=== PATIENT | female | born 1980 ===

== ENCOUNTER 2019-03-27 00:44 | Inpatient (IN) | payer MEDICAID, OTHER ==
[2019-03-27] MEDS ORDERED: MAGNESIUM SULFATE 4 GM/100 ML BAG IV ONE (01:54)
[2019-03-27] MEDS ORDERED: MAGNESIUM SULFATE 40GM/1000ML 40 GM/1,000 ML BAG IV SCH (02:00)
[2019-03-27 02:11] LABS: Basophils # (Auto) 0.1 K/mm3 (0.0-0.1); Basophils % (Auto) 0.8 % (0.0-1.8); Eosinophils # (Auto) 0.1 K/mm3 (0.0-0.4); Eosinophils % (Auto) 0.8 % (0.0-4.3); Hematocrit 29.5 % (30.3-42.9); Hemoglobin 9.6 gm/dl (10.1-14.3); Lymphocytes # (Auto) 1.4 K/mm3 (1.2-5.4); Lymphocytes % (Auto) 21.4 % (13.4-35.0); Mean Corpuscular HGB Conc 32 % (30-34); Mean Corpuscular Volume 75 fl (79-97); Monocytes # (Auto) 0.5 K/mm3 (0.0-0.8); Monocytes % (Auto) 7.3 % (0.0-7.3); Platelet Count 208 K/mm3 (140-440); Red Blood Count 3.94 M/mm3 (3.65-5.03); Red Cell Distribution Width 15.2 % (13.2-15.2)
[2019-03-27 02:14] LABS: Bilirubin,Urine NEG (Negative); Blood,Urine NEG (Negative); Color,Urine Straw (Yellow); Hyaline Casts,Urine 1 /LPF; Mucus,Urine FEW /HPF; Protein,Urine <15 mg/dL mg/dL (Negative); Urobilinogen,Urine < 2.0 mg/dL (<2.0)
[2019-03-27 02:22] LABS: Amphetamine Screen,Urine PRESUMPTIVE NEGATIVE; Benzodiazepines Screen,Urine PRESUMPTIVE NEGATIVE; Cannabinoid Screen,Urine PRESUMPTIVE NEGATIVE; Cocaine Screen,Urine PRESUMPTIVE NEGATIVE; Methadone Screen,Urine PRESUMPTIVE NEGATIVE; Opiate Screen,Urine PRESUMPTIVE NEGATIVE
[2019-03-27] MEDS: LACTATED RINGERS 1,000 ML IV SCH ×2 (02:30→16:03)
[2019-03-27] MEDS: AMPICILLIN/NS 2 GM/100 ML 2 GM/100 ML BAG IV SCH ×4 (02:30→20:06)
[2019-03-27] MEDS: BETAMET ACET/BETAMET NA PH 6 MG/ML INJ 5 ML MDV IM SCH (02:31)
[2019-03-27] MEDS: BUTORPHANOL 2 MG/1 ML INJ IV PRN (02:56)
--- NOTE | 2019-03-27 03:00 | Ultrasound Report ---
Limited obstetrical ultrasound INDICATION: Early 1 week , leaking fluid COMPARISON: None recent TECHNIQUE: Transabdominal FINDINGS: Limited evaluation shows an intrauterine . Large fetus is noted in a cephalic posi tion. Dating was not performed. Placenta is not well evaluated but is free of the internal cervical o s. cardiac activity was documented with heart rate of 161 bpm. Only a small amount of amniotic fluid is seen. TONY is decreased and only 2.1 cm. There appears to be a loop of the umbilical cord around the neck. IMPRESSION: 1. Oligohydramnios 2. Evidence of nuchal cord Signer Name: Berto Childers MD Signed: 03/27/2019 2:55 AM Workstation Name: [id number]
[2019-03-27] MEDS: ERYTHROMYCIN LACTOBIONATE 250 MG in SODIUM CHLORIDE 0.9% 100 ML IV SCH ×3 (05:58→18:10)
--- NOTE | 2019-03-27 08:50 | Consultation ---
History of Present Illness Consult date: 03/27/19 Requesting physician: VINNY SPARROW History of present illness: HPI 39 y/o SF MARGE 05/28/19 Now EGW at 31 1/7 weeks Presented with PPROM 11:30pm Denies fever chills abd pain - Pos - Occ contrax ------- Recent Diag with GDM - On Metformin 500 q day dinner BS Log fastings 104-122 2 HPP's most < 120's Received Steroids first dose Mg turned off after ? chest pain Lungs CTA Pulse ox -96 leg - right mild tenderness to palpation , neg homans , no warmth Left NT no edema neg homans Abd soft NT no RUQ Pain EFM 150 - had late decel after one contrax - down to 120 - Pos Accels , Mod variability US - Vtx, TONY 2.1cm , nuchal cord OB history 98 T M 8# 01 T M 9# 11 T F 8# No complications No med No surg No STD ? Polyp No C/D/D Denies complication except for GDM Past History - Obstetrical History : 4 Medications and Allergies Allergies Allergy/AdvReac Type Severity Reaction Status Date / Time No Known Allergies Allergy Unverified 07/27/15 21:54 Active Meds: Active Medications Acetaminophen (Tylenol) 650 mg PO Q4H PRN PRN Reason: Pain MILD(1-3)/Fever >100.5/MALIN Betamethasone Acet/Betameth SodPhos (Celestone Soluspan) 12 mg IM Q24H [facility]ER Stop: 03/28/19 02:01 Last Admin: 03/27/19 02:31 Dose: 12 mg Documented by: Butorphanol Tartrate (Stadol) 2 mg IV Q2H PRN PRN Reason: Labor Pain Last Admin: 03/27/19 02:56 Dose: 2 mg Documented by: Docusate Sodium (Colace) 100 mg PO Q12H PRN PRN Reason: Constipation Lactated Ringer's (Lactated Ringers) 1,000 mls @ 125 mls/hr IV DIRECT [facility]ER Ampicillin Sodium (Ampicillin/Ns 2 Gm/100 Ml) 2 gm in 100 mls @ 100 mls/hr IV Q6H [facility]ER; Protocol Stop: 03/28/19 20:59 Last Admin: 03/27/19 08:14 Dose: 100 mls/hr Documented by: Erythromycin Lactobionate 250 (mg/ Sodium Chloride) 100 mls @ 100 mls/hr IV Q6HR [facility]ER; Protocol Stop: 03/29/19 00:59 Last Admin: 03/27/19 05:58 Dose: 100 mls/hr Documented by: Lactated Ringer's (Lactated Ringers) 1,000 mls @ 75 mls/hr IV DIRECT [facility]ER Last Admin: 03/27/19 02:30 Dose: 75 mls/hr Documented by: Magnesium Sulfate (Magnesium Sulfate 40gm/1000ml) 40 gm in 1,000 mls @ 50 mls/hr IV DIRECT [facility]ER Last Admin: 03/27/19 03:02 Dose: 2 gm/hr, 50 mls/hr Documented by: Multivitamins/Iron/Calcium ( Vitamin) 1 each PO QDAY SCHU[facility]ER - Vital Signs Vital signs: Vital Signs Pulse BP 83 117/72 03/27/19 01:09 03/27/19 01:09 Temp Pulse Resp BP Pulse Ox 101 H 18 106/61 96 03/27/19 08:33 03/27/19 02:56 03/27/19 08:33 03/27/19 08:31 Results Result Diagrams: 03/27/19 01:48 Abnormal lab results 03/27/19 03/27/19 Range/Units 01:48 06:10 Hgb 9.6 L (10.1-14.3) gm/dl Hct 29.5 L (30.3-42.9) % MCV 75 L (79-97) fl MCH 24 L (28-32) pg Magnesium 3.50 H (1.7-2.3) mg/dL All other labs normal. Assessment and Plan Impression 1. Charlton IUP at 31 1/7 weeks 2. PPROM 3. GDM 4. SOB - Improved after Mg DC's 5. Right Lower Calf Pain on Palpation 6. Anemia Recommendations 1. Obtain US EFW and BPP 2. BPP Twice per week while undelivered 3. Antibiotics per protocol for PPROM 4. Steroids for FLM (Accuchecks may increase) 5. Hold Mg - OB had ordered hospitalist consult 6. NICU consult 7. Iron BID 8. 0 ADA diet 9. Accuchecks fastings and 2 hour PP's 10. May continue Metformin 500 11. Lower Leg Dopplers 12. Sliding scale Reg Insulin if BS increase after Steroids for BS > 140 would give : BS -100/20 = units of Reg Insulin
--- NOTE | 2019-03-27 10:04 | History and Physical Report ---
History of Present Illness Date of examination: 03/27/19 Date of admission: 03/27/2019 Chief complaint: Spontaneous rupture of membranes just after midnight this family helper History of present illness: 39 y/o SF MARGE 05/28/19 Now EGW at 31 1/7 weeks Presented with PPROM 11:30pm Denies fever chills abd pain - Pos - Occ contrax ------- Recent Diag with GDM - On Metformin 500 q day dinner BS Log fastings 104-122 2 HPP's most < 120's Past History - Obstetrical History Expected Date of Delivery: 05/28/19 Actual Gestation: 31 Week(s) 1 Day(s) : 4 Para: 3 Medications and Allergies Allergies Allergy/AdvReac Type Severity Reaction Status Date / Time No Known Allergies Allergy Unverified 07/27/15 21:54 Active Meds: Active Medications Acetaminophen (Tylenol) 650 mg PO Q4H PRN PRN Reason: Pain MILD(1-3)/Fever >100.5/MALIN Betamethasone Acet/Betameth SodPhos (Celestone Soluspan) 12 mg IM Q24H [facility] Stop: 03/28/19 02:01 Last Admin: 03/27/19 02:31 Dose: 12 mg Documented by: Butorphanol Tartrate (Stadol) 2 mg IV Q2H PRN PRN Reason: Labor Pain Last Admin: 03/27/19 02:56 Dose: 2 mg Documented by: Docusate Sodium (Colace) 100 mg PO Q12H PRN PRN Reason: Constipation Lactated Ringer's (Lactated Ringers) 1,000 mls @ 125 mls/hr IV DIRECT [facility]ER Ampicillin Sodium (Ampicillin/Ns 2 Gm/100 Ml) 2 gm in 100 mls @ 100 mls/hr IV Q6H [facility]; Protocol Stop: 03/28/19 20:59 Last Admin: 03/27/19 08:14 Dose: 100 mls/hr Documented by: Erythromycin Lactobionate 250 (mg/ Sodium Chloride) 100 mls @ 100 mls/hr IV Q6HR [facility]; Protocol Stop: 03/29/19 00:59 Last Admin: 03/27/19 05:58 Dose: 100 mls/hr Documented by: Lactated Ringer's (Lactated Ringers) 1,000 mls @ 75 mls/hr IV DIRECT [facility]ER Last Admin: 03/27/19 02:30 Dose: 75 mls/hr Documented by: Magnesium Sulfate (Magnesium Sulfate 40gm/1000ml) 40 gm in 1,000 mls @ 50 mls/hr IV DIRECT [facility]ER Last Admin: 03/27/19 03:02 Dose: 2 gm/hr, 50 mls/hr Documented by: Multivitamins/Iron/Calcium ( Vitamin) 1 each PO QDAY [facility]ER Review of Systems All systems: negative - Vital Signs Vital signs: Vital Signs Pulse BP 83 117/72 03/27/19 01:09 03/27/19 01:09 Temp Pulse Resp BP Pulse Ox 103 H 18 94/53 95 03/27/19 09:56 03/27/19 02:56 03/27/19 09:33 03/27/19 09:56 - Physical Exam Lungs: Positive: Normal air movement Abdomen: Positive: normal appearance. Negative: tenderness Uterus: Positive: normal size, enlarged, other (consistent with gestational age) Extremities: Positive: normal Deep Tendon Reflex Grade: Normal +2 - Obstetrical FHR: auscultation normal Uterine Contraction Pattern: Irregular Results Result Diagrams: 03/27/19 01:48 Abnormal lab results 03/27/19 03/27/19 03/27/19 Range/Units 01:48 06:10 08:55 Hgb 9.6 L (10.1-14.3) gm/dl Hct 29.5 L (30.3-42.9) % MCV 75 L (79-97) fl MCH 24 L (28-32) pg POC Glucose 119 H (70-105) Magnesium 3.50 H (1.7-2.3) mg/dL 03/27/19 Range/Units 09:19 Hgb (10.1-14.3) gm/dl Hct (30.3-42.9) % MCV (79-97) fl MCH (28-32) pg POC Glucose (70-105) Magnesium 2.70 H (1.7-2.3) mg/dL All other labs normal. Assessment and Plan - Patient Problems (1) 31 to 32 weeks gestation of Current Visit: Yes Status: Acute (2) Gestational diabetes Current Visit: Yes Status: Acute (3) premature rupture of membranes Current Visit: Yes Status: Acute Plan to address problem: Recommendations as per MFM: 1. Obtain US EFW and BPP 2. BPP Twice per week while undelivered 3. Antibiotics per protocol for PPROM 4. Steroids for FLM (Accuchecks may increase) 5. Hold Mg - OB had ordered hospitalist consult 6. NICU consult 7. Iron BID 8. 2200 ADA diet 9. Accuchecks fastings and 2 hour PP's 10. May continue Metformin 500 11. Lower Leg Dopplers 12. Sliding scale Reg Insulin if BS increase after Steroids for BS > 140 would give : BS -100/20 = units of Reg Insulin
--- NOTE | 2019-03-27 10:45 | Consultation ---
History of Present Illness - Reason for Consult Consult date: 03/27/19 Chest pain - History of Present Illness 29-year-old woman with continuous rupture of membranes at 31 weeks gestation. Consult from OB for management of chest pain. Patient currently denies any chest pain, she states that she only had a chest pain last night when she was on the magnesium drip. It is now completely resolved. Denies palpitations, denies shortness of breath, denies pedal edema Past History Past Medical History: other (Gestational diabetes) Past Surgical History: No surgical history Social history: no significant social history Family history: no significant family history Medications and Allergies Allergies Allergy/AdvReac Type Severity Reaction Status Date / Time No Known Allergies Allergy Unverified 07/27/15 21:54 Active Meds: Active Medications Acetaminophen (Tylenol) 650 mg PO Q4H PRN PRN Reason: Pain MILD(1-3)/Fever >100.5/MALIN Betamethasone Acet/Betameth SodPhos (Celestone Soluspan) 12 mg IM Q24H [facility]ER Stop: 03/28/19 02:01 Last Admin: 03/27/19 02:31 Dose: 12 mg Documented by: Butorphanol Tartrate (Stadol) 2 mg IV Q2H PRN PRN Reason: Labor Pain Last Admin: 03/27/19 02:56 Dose: 2 mg Documented by: Docusate Sodium (Colace) 100 mg PO Q12H PRN PRN Reason: Constipation Lactated Ringer's (Lactated Ringers) 1,000 mls @ 125 mls/hr IV DIRECT [facility]ER Ampicillin Sodium (Ampicillin/Ns 2 Gm/100 Ml) 2 gm in 100 mls @ 100 mls/hr IV Q6H [facility]; Protocol Stop: 03/28/19 20:59 Last Admin: 03/27/19 08:14 Dose: 100 mls/hr Documented by: Erythromycin Lactobionate 250 (mg/ Sodium Chloride) 100 mls @ 100 mls/hr IV Q6HR [facility]; Protocol Stop: 03/29/19 00:59 Last Admin: 03/27/19 05:58 Dose: 100 mls/hr Documented by: Lactated Ringer's (Lactated Ringers) 1,000 mls @ 75 mls/hr IV DIRECT SCHU[facility]ER Last Admin: 03/27/19 02:30 Dose: 75 mls/hr Documented by: Magnesium Sulfate (Magnesium Sulfate 40gm/1000ml) 40 gm in 1,000 mls @ 50 mls/hr IV DIRECT [facility]ER Last Admin: 03/27/19 03:02 Dose: 2 gm/hr, 50 mls/hr Documented by: Multivitamins/Iron/Calcium ( Vitamin) 1 each PO QDAY [facility]ER Review of Systems All systems: negative Constitutional: no weight loss Ears, nose, mouth and throat: no ear pain Cardiovascular: no orthopnea Respiratory: no cough Gastrointestinal: no abdominal pain Rectal: no pain Musculoskeletal: no neck stiffness Integumentary: no pruritis Neurological: no head injury Psychiatric: no memory loss Endocrine: no cold intolerance Hematologic/Lymphatic: no easy bruising Allergic/Immunologic: no urticaria Exam - Constitutional Vitals: Temp Pulse Resp BP Pulse Ox 105 H 18 90/50 95 03/27/19 10:41 03/27/19 02:56 03/27/19 10:33 03/27/19 10:41 General appearance: Present: no acute distress, well-nourished - EENT Eyes: Present: PERRL ENT: hearing intact, clear oral mucosa - Neck Neck: Present: supple, normal ROM - Respiratory Respiratory effort: normal Respiratory: bilateral: CTA - Cardiovascular Heart Sounds: Present: S1 & S2. Absent: rub, click - Extremities Extremities: pulses symmetrical, No edema Peripheral Pulses: within normal limits - Abdominal General gastrointestinal: Present: soft, non-tender, non-distended, normal bowel sounds, other (Gravid uterus) Female genitourinary: Present: normal - Integumentary Integumentary: Present: clear, warm, dry - Musculoskeletal Musculoskeletal: gait normal, strength equal bilaterally - Psychiatric Psychiatric: appropriate mood/affect, intact judgment & insight - Neurologic Neurologic: CNII-XII intact, moves all extremities Results - Labs CBC & Chem 7: 03/27/19 01:48 Labs: Abnormal lab results 03/27/19 03/27/19 03/27/19 Range/Units 01:48 06:10 08:55 Hgb 9.6 L (10.1-14.3) gm/dl Hct 29.5 L (30.3-42.9) % MCV 75 L (79-97) fl MCH 24 L (28-32) pg POC Glucose 119 H (70-105) Magnesium 3.50 H (1.7-2.3) mg/dL 03/27/19 Range/Units 09:19 Hgb (10.1-14.3) gm/dl Hct (30.3-42.9) % MCV (79-97) fl MCH (28-32) pg POC Glucose (70-105) Magnesium 2.70 H (1.7-2.3) mg/dL Assessment and Plan 29-year-old woman with continuous rupture of membranes at 31 weeks gestation. Consult from OB for management of chest pain. Chest pain and tachycardia Magnesium drip has been discontinued per M recommendation Obtain stat EKG and troponins Gestational diabetes SSI, check A1c 31 weeks gestation and PROM Management per OB DVT prophylaxis Management per primary team.
[2019-03-27] MEDS: PRENATAL VIT27-FE FUMARATE-FOLIC ACID VIT TAB PO SCH (10:49)
--- NOTE | 2019-03-27 14:28 | Ultrasound Report ---
ULTRASOUND BIOPHYSICAL PROFILE INDICATION / CLINICAL INFORMATION: well-being. COMPARISON: None available. FINDINGS: BREATHING MOVEMENT = 2 GROSS BODY MOVEMENT = 2 TONE = 2 QUALITATIVE AMNIOTIC FLUID VOLUME = 2 TOTAL BIOPHYSICAL SCORE = 8/8 AMNIOTIC FLUID = Deepest vertical pocket measures 2.4 cm. TONY 3.5 cm. PRESENTATION: Cephalic. HEART RATE (beats per minute): 160 IMPRESSION: biophysical profile = 01/02 Signer Name: Juan Ramon Diop MD Signed: 03/27/2019 2:24 PM Workstation Name: [id number]
--- NOTE | 2019-03-27 14:34 | Ultrasound Report ---
Complete transabdominal OB pelvic ultrasound INDICATION / CLINICAL INFORMATION: well-being; SROM at 31.1 weeks AOG. COMPARISON: Earlier today at 1:55 AM. FINDINGS: There is a single intrauterine with an estimated sonographic gestational age of 33 weeks 5 days and an EDC of 05/10/2019. Clinical dates are 31 weeks 1 day. presentation is cephalic. The heart rate is 161 bpm. The placenta is located anteriorly, is grade 1 and is free of the os. A mniotic fluid volume is decreased with an TONY of 3.5 cm. The estimated weight is 2279 +/- 337 g . The intracranial and spinal anatomy are normal. The stomach, kidneys, urinary bladder and diaphragm are normal. A 4 chambered heart view is seen. There is a three-vessel umbilical cord which inserts normally on the abdomen. I do not identify a nuchal cord on the current exam. No anomalies are seen. The uterine cervix is not well seen. Neither ovary is identified. IMPRESSION: 1. Single viable 33 week 5 day intrauterine . 2. Oligohydramnios. Signer Name: Juan Ramon Diop MD Signed: 03/27/2019 2:29 PM Workstation Name: [id number]
[2019-03-27] MEDS ORDERED: DEXTROSE 50% IN WATER (25GM) 50 ML SYRINGE IV PRN (16:07)
[2019-03-27] MEDS: ACETAMINOPHEN 325 MG TAB PO PRN ×2 (16:29→20:04)
[2019-03-27] MEDS: metFORMIN 500 MG TAB PO SCH (17:34)
--- NOTE | 2019-03-27 20:34 | Event Note ---
Date: 03/27/19 Attempted to completed NICU consult. Mother sleeping and father does not want to wake her. NICU and FLEET MAINTENANCE MANAGER phone number given for father to call when mother is awake and FLEET MAINTENANCE MANAGER will return. Discussed with Ewa ALMODOVAR as well.
--- NOTE | 2019-03-27 22:47 | Consultation ---
Consult Note - Parent Education I met with parent(s) and discussed the following:: Need for NICU admission, Poss ible need for intubation and surfactant or other resp support, Temperature regulation, Head ultrasounds to evaluate IVH, Possible need for IV fluids/TPN and IV antibiotics, Possible need for umbilical lines, Importance of providing breast milk & encouraged pumping aft delivery, Donor breast milk if baby meets criteria after , Slow feeding advancement and monitoring of tolerance. NG/OG feeds, Need to monitor for jaundice, Data for survival & survival without significant co-morbidities (Also discussed risk for infection, visitation, and minimal stimulation guidelines) Parent(s) demonstrated understanding of all the information:: Yes Additional Comment: All information discussed with parents. Father speaks Bel[place]ian well, mother does a little but states she understands all discussed information, declines swaging machine adjuster. Mother states she wants to bottle feed, discussed importance of breast milk and we can provide a pump if she feels she is able. If not, donor breast milk program available Assessment and Plan - Assessment Gestation:: 31.1 Estimated Weight: 2279g Baby's gender: Male Additional Comment: Per US, measuring 33.5 weeks and visible nuchal cord, oligohydramnios (SROM 03/26 at 1130). Mother unable to tolerate magnesium, c/o chest pain and SOB and mag discontinued. Steroids to be complete 03/28 230 - Plan Plan: Agree with steroids Will attend delivery Please call NICU with questions Encouraged parents to call and ohone number given if any further concerns or questions
[2019-03-28] MEDS: ERYTHROMYCIN LACTOBIONATE 250 MG in SODIUM CHLORIDE 0.9% 100 ML IV SCH ×4 (00:04→18:00)
[2019-03-28] MEDS: AMPICILLIN/NS 2 GM/100 ML 2 GM/100 ML BAG IV SCH ×4 (01:38→20:28)
[2019-03-28] MEDS: BETAMET ACET/BETAMET NA PH 6 MG/ML INJ 5 ML MDV IM SCH (01:44)
[2019-03-28] MEDS: ZOLPIDEM 5 MG TAB PO PRN (01:57)
[2019-03-28] MEDS: LACTATED RINGERS 1,000 ML IV SCH (06:52)
[2019-03-28] MEDS: metFORMIN 500 MG TAB PO SCH ×2 (08:30→17:19)
[2019-03-28] MEDS: PRENATAL VIT27-FE FUMARATE-FOLIC ACID VIT TAB PO SCH (09:57)
[2019-03-28] MEDS: DOCUSATE SODIUM 100 MG CAP PO PRN (10:13)
--- NOTE | 2019-03-28 10:54 | Progress Note ---
Assessment and Plan Assessment and plan: 29-year-old woman with continuous rupture of membranes at 31 weeks gestation. Consult from OB for management of chest pain. Chest pain and tachycardia Magnesium drip has been discontinued per M recommendation Obtain stat EKG and troponins Gestational diabetes SSI, check A1c 31 weeks gestation and PROM Management per OB DVT prophylaxis Management per primary team. History Interval history: Review of systems Constitutional: No fevers, no malaise, no joint pains CVS: No chest pain, no orthopnea, no pedal edema GI: No abdominal pain, no diarrhea, no vomiting, no constipation Respiratory: No shortness of breath, no wheezing, no coughing Hospitalist Physical - Physical exam Narrative exam: General.: Appears well, no distress, nontoxic HEENT: Moist mucous membranes, extraocular muscles intact, no lymphadenopathy Neck: supple Cardiac: S1-S2 heard Lungs: clear to auscultation bilaterally Abdomen: soft , nontender, nondistended, bowel sounds positive, gravid uterus Extremities: no edema clubbing or cyanosis Skin: no rash or lesions Neurologic: no gross focal deficits Psych: calm, and cooperative - Constitutional Vitals: Temp Pulse Resp BP Pulse Ox 98.3 F 86 18 98/48 95 03/28/19 08:28 03/28/19 08:28 03/28/19 08:28 03/28/19 08:28 03/28/19 08:28 General appearance: Present: no acute distress, well-nourished Results - Labs CBC & Chem 7: 03/27/19 01:48 Labs: Laboratory Last Values WBC 6.4 K/mm3 (4.5-11.0) 03/27/19 01:48 RBC 3.94 M/mm3 (3.65-5.03) 03/27/19 01:48 Hgb 9.6 gm/dl (10.1-14.3) L 03/27/19 01:48 Hct 29.5 % (30.3-42.9) L 03/27/19 01:48 MCV 75 fl (79-97) L 03/27/19 01:48 MCH 24 pg (28-32) L 03/27/19 01:48 MCHC 32 % (30-34) 03/27/19 01:48 RDW 15.2 % (13.2-15.2) 03/27/19 01:48 Plt Count 208 K/mm3 (140-440) 03/27/19 01:48 Lymph % (Auto) 21.4 % (13.4-35.0) 03/27/19 01:48 [place] % (Auto) 7.3 % (0.0-7.3) 03/27/19 01:48 Eos % (Auto) 0.8 % (0.0-4.3) 03/27/19 01:48 Baso % (Auto) 0.8 % (0.0-1.8) 03/27/19 01:48 Lymph # 1.4 K/mm3 (1.2-5.4) 03/27/19 01:48 [place] # 0.5 K/mm3 (0.0-0.8) 03/27/19 01:48 Eos # 0.1 K/mm3 (0.0-0.4) 03/27/19 01:48 Baso # 0.1 K/mm3 (0.0-0.1) 03/27/19 01:48 Seg Neutrophils % 69.7 % (40.0-70.0) 03/27/19 01:48 Seg Neutrophils # 4.5 K/mm3 (1.8-7.7) 03/27/19 01:48 POC Glucose 118 (70-105) H 03/28/19 05:34 Hemoglobin A1c 5.5 % (4-6) 03/28/19 05:49 Magnesium 2.20 mg/dL (1.7-2.3) 03/27/19 21:44 Total Creatine Kinase 80 units/L (30-135) 03/27/19 09:19 Troponin T < 0.010 ng/mL (0.00-0.029) 03/28/19 05:49 Urine Color Straw (Yellow) 03/27/19 01:55 Urine Turbidity Clear (Clear) 03/27/19 01:55 Urine pH 6.0 (5.0-7.0) 03/27/19 01:55 Ur Specific [place] 1.008 (1.003-1.030) 03/27/19 01:55 Urine Protein <15 mg/dl mg/dL (Negative) 03/27/19 01:55 Urine Glucose (UA) Neg mg/dL (Negative) 03/27/19 01:55 Urine Ketones 80 mg/dL (Negative) 03/27/19 01:55 Urine Blood Neg (Negative) 03/27/19 01:55 Urine Nitrite Neg (Negative) 03/27/19 01:55 Urine Bilirubin Neg (Negative) 03/27/19 01:55 Urine Urobilinogen < 2.0 mg/dL (<2.0) 03/27/19 01:55 Ur Leukocyte Esterase Neg (Negative) 03/27/19 01:55 Urine WBC (Auto) 2.0 /HPF (0.0-6.0) 03/27/19 01:55 Urine RBC (Auto) 2.0 /HPF (0.0-6.0) 03/27/19 01:55 U Epithel Cells (Auto) 5.0 /HPF (0-13.0) 03/27/19 01:55 Hyaline Casts 1 /LPF 03/27/19 01:55 Urine Mucus Few /HPF 03/27/19 01:55 Urine Opiates Screen Presumptive negative 03/27/19 01:55 Urine Methadone Screen Presumptive negative 03/27/19 01:55 Ur Barbiturates Screen Presumptive negative 03/27/19 01:55 Ur Phencyclidine Scrn Presumptive negative 03/27/19 01:55 Ur Amphetamines Screen Presumptive negative 03/27/19 01:55 U Benzodiazepines Scrn Presumptive negative 03/27/19 01:55 Urine Cocaine Screen Presumptive negative 03/27/19 01:55 U Marijuana (THC) Screen Presumptive negative 03/27/19 01:55 Drugs of Abuse Note Disclamer 03/27/19 01:55 Syphilis IgG Antibody Non-reactive (NonReactive) 03/27/19 01:48 Blood Type B POSITIVE 03/27/19 01:40 Antibody Screen Negative 03/27/19 01:40 Active Medications - Current Medications Current Medications: Generic Name Dose Route Start Last Admin Trade Name Freq PRN Reason Stop Dose Admin Acetaminophen 650 mg 03/27/19 01:40 03/27/19 20:04 Tylenol PO 650 mg Q4H PRN Administration Pain MILD(1-3)/Fever >100.5/MALIN Butorphanol Tartrate 2 mg 03/27/19 01:49 03/27/19 02:56 Stadol IV 2 mg Q2H PRN Administration Labor Pain Dextrose 50 ml 03/27/19 16:07 D50w (25gm) Syringe IV Q30MIN PRN Hypoglycemia Docusate Sodium 100 mg 03/27/19 01:40 03/28/19 10:13 Colace PO 100 mg Q12H PRN Administration Constipation Lactated Ringer's 1,000 mls @ 125 mls/hr 03/27/19 02:00 03/28/19 06:52 Lactated Ringers IV 125 mls/hr DIRECT [facility]ER Administration Ampicillin Sodium 2 gm in 100 mls @ 100 mls/hr 03/27/19 02:00 03/28/19 08:31 Ampicillin/Ns 2 Gm/100 Ml IV 03/28/19 20:59 100 mls/hr Q6H [facility] Administration Protocol Erythromycin Lactobionate 250 100 mls @ 100 mls/hr 03/27/19 06:00 03/28/19 06:52 mg/ Sodium Chloride IV 03/29/19 00:59 100 mls/hr Q6HR [facility] Administration Protocol Lactated Ringer's 1,000 mls @ 75 mls/hr 03/27/19 02:00 03/27/19 02:30 Lactated Ringers IV 75 mls/hr DIRECT SCHU[facility]ER Administration Magnesium Sulfate 40 gm in 1,000 mls @ 50 mls/hr 03/27/19 02:00 03/27/19 03:02 Magnesium Sulfate 40gm/1000ml IV 2 gm/hr DIRECT SCHU[facility]ER 50 mls/hr Administration 2 GM/HR Insulin Human Lispro 0 unit 03/27/19 16:30 Humalog SUB-Q ACHS SCHU[facility]ER Protocol Metformin HCl 500 mg 03/27/19 17:00 03/28/19 08:30 Glucophage PO 500 mg BIDDIAB [facility]ER Administration Multivitamins/Iron/Calcium 1 each 03/27/19 10:00 03/28/19 09:57 Vitamin PO 1 each QDAY [facility]ER Administration Zolpidem Tartrate 5 mg 03/28/19 01:54 03/28/19 01:57 Ambien PO 5 mg QHS PRN Administration Sleep
--- NOTE | 2019-03-28 14:32 | Progress Note ---
Assessment and Plan - Patient Problems (1) 31 to 32 weeks gestation of Current Visit: Yes Status: Acute (2) Gestational diabetes Current Visit: Yes Status: Acute (3) premature rupture of membranes Current Visit: Yes Status: Acute Plan to address problem: Recommendations as per MFM: 1. Obtain US EFW and BPP 2. BPP Twice per week while undelivered 3. Antibiotics per protocol for PPROM 4. Steroids for FLM (Accuchecks may increase) 5. Hold Mg - OB had ordered hospitalist consult 6. NICU consult 7. Iron BID 8. 2200 ADA diet 9. Accuchecks fastings and 2 hour PP's 10. May continue Metformin 500 11. Lower Leg Dopplers 12. Sliding scale Reg Insulin if BS increase after Steroids for BS > 140 would give : BS -100/20 = units of Reg Insulin (4) Leg pain, right Current Visit: Yes Status: Acute Subjective - Subjective Date of service: 03/28/19 Principal diagnosis: PPROM, GDM Interval history: Admitted 03/27/2019 bed rubber with PPROM. Also has GDM 39 y/o SF MARGE 05/28/19 Now EGW at 31 2/7 weeks Denies fever chills abd pain - Occ contractions ------- Recent Diag with GDM - On Metformin 500 q day dinner Patient reports: new complaints, loss of fluid, movement normal, contractions (c/o pins and needles in right calf.), no vaginal bleeding Objective - Vital Signs Vital Signs: Vital Signs - 12hr 03/28/19 03/28/19 03/28/19 05:17 06:52 08:27 Temperature Pulse Rate 86 93 H 92 H Respiratory Rate Blood Pressure 78/45 84/51 98/48 Blood Pressure [Left] O2 Sat by Pulse 95 Oximetry 03/28/19 03/28/19 03/28/19 08:28 12:25 12:26 Temperature 98.3 F 98.0 F Pulse Rate 86 86 86 Respiratory 18 18 Rate Blood Pressure 100/55 Blood Pressure 98/48 100/55 [Left] O2 Sat by Pulse 95 Oximetry - Exam Narrative Exam: Was in no distress. calves normal. rolan's sign not sought. Lungs: Normal air movement Abdomen: Present: normal appearance, soft, distention. Absent: tenderness FHR: category 1 Extremities: normal Deep Tendon Reflex Grade: Normal +2 - Labs Labs: Abnormal Labs 03/27/19 03/27/19 03/27/19 01:48 06:10 08:55 Hgb 9.6 L Hct 29.5 L MCV 75 L MCH 24 L POC Glucose 119 H Magnesium 3.50 H 03/27/19 03/27/19 03/27/19 09:19 14:55 19:57 Hgb Hct MCV MCH POC Glucose 123 H 125 H Magnesium 2.70 H 03/28/19 03/28/19 05:34 11:21 Hgb Hct MCV MCH POC Glucose 118 H 148 H Magnesium Laboratory Results - last 24 hr 03/27/19 03/27/19 03/27/19 14:55 15:00 19:29 POC Glucose 123 H Hemoglobin A1c Magnesium 2.20 Troponin T < 0.010 03/27/19 03/27/19 03/28/19 19:57 21:44 00:36 POC Glucose 125 H Hemoglobin A1c Magnesium 2.20 Troponin T < 0.010 03/28/19 03/28/19 03/28/19 05:34 05:49 05:49 POC Glucose 118 H Hemoglobin A1c 5.5 Magnesium Troponin T < 0.010 03/28/19 11:21 POC Glucose 148 H Hemoglobin A1c Magnesium Troponin T
--- NOTE | 2019-03-28 15:10 | Vascular Lab Report ---
DUPLEX DOPPLER LOWER EXTREMITY VEINS, RIGHT INDICATION: right lower leg pain. Right calf pain for 4 days. 31 weeks with gestational diabetes. TECHNIQUE: Duplex doppler imaging was performed through the veins of the right lower extremity using venous comp ression and other maneuvers. COMPARISON: No relevant prior imaging study available. FINDINGS: Right Common femoral vein: Negative. Right Superficial femoral vein: Negative. Right Popliteal vein: Negative. Right Calf veins: Negative. Additional findings: None.. IMPRESSION: 1. No sonographic evidence for DVT in the right lower extremity. Signer Name: Jori Rodriguez Signed: 03/28/2019 3:05 PM Workstation Name: [id number]
--- NOTE | 2019-03-28 17:16 | Progress Note ---
Subjective - Subjective Date of service: 03/28/19 Principal diagnosis: PPROM, GDM Interval history: PM note: transfer of care. Patient seen and examined on PM rounds No complaints PPROM at 31+ weeks EKG: sinus tachycardia, otherwise normal Vitals: reviewed. see below FHT 140 baseline, moderate variability, appropriate for gestational age [place]: not alejandro Cervix: deferred A: PPROM P: continue expectant management deliver for maternal/ indication Polo MCKNIGHT Vital Signs Temp 97.6 F 03/28/19 16:49 Pulse 84 03/28/19 16:49 Resp 18 03/28/19 16:49 BP 93/55 03/28/19 16:49 Pulse Ox 95 03/28/19 08:28 Intake & Output 03/27/19 03/28/19 03/28/19 23:59 11:59 23:59 Intake Total 2800 1510 100 Output Total 1550 Balance 1250 1510 100 Weight 73.028 kg Intake: IV 1700 1510 100 AMPICILLIN/NS 2 GM/100 ML 300 300 2 gm In 100 ml @ 100 mls /hr IV Q6H [facility] Rx#: [id number] Erythromycin Lactobionate 400 200 100 250 mg In NaCl 0.9% 100 ml @ 100 mls/hr IV Q6HR [facility] Rx#:[id number] Lactated Ringers 1,000 ml 1000 @ 125 mls/hr IV DIRECT [facility] Rx#:[id number] Lactated Ringers 1,000 ml 1000 @ 75 mls/hr IV DIRECT [facility] Rx#:[id number] Right Hand 10 Oral 1100 Output: Urine 1550 Indwelling Catheter 1550 Other: Total, Intake Amount 300 Total, Output Amount 200 # Voids Indwelling Catheter 1 Patient reports: new complaints, loss of fluid, movement normal, contractions (c/o pins and needles in right calf.), no vaginal bleeding Objective - Vital Signs Vital Signs: Vital Signs - 12hr 03/28/19 03/28/19 03/28/19 05:17 06:52 08:27 Temperature Pulse Rate 86 93 H 92 H Respiratory Rate Blood Pressure 78/45 84/51 98/48 Blood Pressure [Left] O2 Sat by Pulse 95 Oximetry 03/28/19 03/28/19 03/28/19 08:28 12:25 12:26 Temperature 98.3 F 98.0 F Pulse Rate 86 86 86 Respiratory 18 18 Rate Blood Pressure 100/55 Blood Pressure 98/48 100/55 [Left] O2 Sat by Pulse 95 Oximetry 03/28/19 03/28/19 15:58 16:49 Temperature 97.6 F Pulse Rate 84 84 Respiratory 18 Rate Blood Pressure 93/55 Blood Pressure 93/55 [Left] O2 Sat by Pulse Oximetry - Labs Labs: Abnormal Labs 03/27/19 03/27/19 03/27/19 01:48 06:10 08:55 Hgb 9.6 L Hct 29.5 L MCV 75 L MCH 24 L POC Glucose 119 H Magnesium 3.50 H 03/27/19 03/27/19 03/27/19 09:19 14:55 19:57 Hgb Hct MCV MCH POC Glucose 123 H 125 H Magnesium 2.70 H 03/28/19 03/28/19 03/28/19 05:34 11:21 14:55 Hgb Hct MCV MCH POC Glucose 118 H 148 H 111 H Magnesium Laboratory Results - last 24 hr 03/27/19 03/27/19 03/27/19 19:29 19:57 21:44 POC Glucose 125 H Hemoglobin A1c Magnesium 2.20 Troponin T < 0.010 03/28/19 03/28/19 03/28/19 00:36 05:34 05:49 POC Glucose 118 H Hemoglobin A1c Magnesium Troponin T < 0.010 < 0.010 03/28/19 03/28/19 03/28/19 05:49 11:21 14:55 POC Glucose 148 H 111 H Hemoglobin A1c 5.5 Magnesium Troponin T
[2019-03-28] MEDS: INSULIN LISPRO 100 UNIT/ML SUB-Q SCH (22:00)
--- NOTE | 2019-03-28 23:42 | Vascular Lab Report ---
DUPLEX DOPPLER LOWER EXTREMITY VEINS, LEFT INDICATION / CLINICAL INFORMATION: Left leg pain. TECHNIQUE: Duplex doppler imaging was performed through the veins of the left lower extremity using venous compr ession and other maneuvers. COMPARISON: None available. FINDINGS: COMMON FEMORAL VEIN: Negative. FEMORAL VEIN: Negative. POPLITEAL VEIN: Negative. CALF VEINS: Negative. ADDITIONAL FINDINGS: None. IMPRESSION: 1. No sonographic evidence for DVT in the left lower extremity. Signer Name: Alphonso Fink MD Signed: 03/28/2019 11:37 PM Workstation Name: [id number]
[2019-03-29] MEDS: ERYTHROMYCIN LACTOBIONATE 250 MG in SODIUM CHLORIDE 0.9% 100 ML IV SCH (00:02)
[2019-03-29] MEDS: LACTATED RINGERS 1,000 ML IV SCH ×3 (01:37→21:44)
[2019-03-29] MEDS: ZOLPIDEM 5 MG TAB PO PRN (01:44)
--- NOTE | 2019-03-29 06:03 | Progress Note ---
Subjective - Subjective Date of service: 03/29/19 Principal diagnosis: PPROM, GDM Interval history: AM note: transfer of care.Patient seen and examined on AM rounds No complaints PPROM at 31+3/7 weeks AM daily labs pending no complaints overnight Vitals: reviewed. see below FHT 140 baseline, moderate variability, appropriate for gestational age [place]: not alejandro Cervix: deferred A: PPROM P: continue expectant management deliver for maternal/ indication Polo MCKNIGHT Vital Signs Temp 97.9 F 03/29/19 01:32 Pulse 83 03/29/19 01:32 Resp 18 03/29/19 01:32 BP 90/54 03/29/19 01:32 Pulse Ox 95 03/28/19 08:28 Intake & Output 03/28/19 03/28/19 03/29/19 11:59 23:59 11:59 Intake Total 1510 1400 100 Balance 1510 1400 100 Weight 73.028 kg Intake: IV 1510 500 100 AMPICILLIN/NS 2 GM/100 ML 300 200 2 gm In 100 ml @ 100 mls /hr IV Q6H [facility] Rx#: [id number] Erythromycin Lactobionate 200 300 100 250 mg In NaCl 0.9% 100 ml @ 100 mls/hr IV Q6HR [facility] Rx#:[id number] Lactated Ringers 1,000 ml 1000 @ 125 mls/hr IV DIRECT [facility] Rx#:[id number] Right Hand 10 Oral 900 Other: Total, Intake Amount 900 # Voids Indwelling Catheter 1 Vital Signs Temp 97.6 F 03/28/19 16:49 Pulse 84 03/28/19 16:49 Resp 18 03/28/19 16:49 BP 93/55 03/28/19 16:49 Pulse Ox 95 03/28/19 08:28 Intake & Output 03/27/19 03/28/19 03/28/19 23:59 11:59 23:59 Intake Total 2800 1510 100 Output Total 1550 Balance 1250 1510 100 Weight 73.028 kg Intake: IV 1700 1510 100 AMPICILLIN/NS 2 GM/100 ML 300 300 2 gm In 100 ml @ 100 mls /hr IV Q6H [facility] Rx#: [id number] Erythromycin Lactobionate 400 200 100 250 mg In NaCl 0.9% 100 ml @ 100 mls/hr IV Q6HR [facility] Rx#:[id number] Lactated Ringers 1,000 ml 1000 @ 125 mls/hr IV DIRECT [facility] Rx#:[id number] Lactated Ringers 1,000 ml 1000 @ 75 mls/hr IV DIRECT [facility] Rx#:[id number] Right Hand 10 Oral 1100 Output: Urine 1550 Indwelling Catheter 1550 Other: Total, Intake Amount 300 Total, Output Amount 200 # Voids Indwelling Catheter 1 Patient reports: new complaints, loss of fluid, movement normal, contractions (c/o pins and needles in right calf.), no vaginal bleeding Objective - Vital Signs Vital Signs: Vital Signs - 12hr 03/28/19 03/28/19 03/29/19 22:41 22:42 01:32 Temperature 98.1 F 97.9 F Pulse Rate 93 H 98 H 83 Respiratory 18 18 Rate Blood Pressure 81/48 84/50 90/54 - Labs Labs: Abnormal Labs 03/27/19 03/27/19 03/27/19 01:48 06:10 08:55 Hgb 9.6 L Hct 29.5 L MCV 75 L MCH 24 L POC Glucose 119 H Magnesium 3.50 H 03/27/19 03/27/19 03/27/19 09:19 14:55 19:57 Hgb Hct MCV MCH POC Glucose 123 H 125 H Magnesium 2.70 H 03/28/19 03/28/19 03/28/19 05:34 11:21 14:55 Hgb Hct MCV MCH POC Glucose 118 H 148 H 111 H Magnesium 03/28/19 19:47 Hgb Hct MCV MCH POC Glucose 117 H Magnesium Laboratory Results - last 24 hr 03/28/19 03/28/19 03/28/19 05:49 05:49 11:21 POC Glucose 148 H Hemoglobin A1c 5.5 Troponin T < 0.010 03/28/19 03/28/19 03/28/19 14:55 19:47 23:02 POC Glucose 111 H 117 H 86 Hemoglobin A1c Troponin T
[2019-03-29] MEDS ORDERED: metFORMIN 500 MG TAB PO SCH (10:00)
[2019-03-29] MEDS: metFORMIN 500 MG TAB PO SCH ×2 (13:48→17:05)
[2019-03-29] MEDS: PRENATAL VIT27-FE FUMARATE-FOLIC ACID VIT TAB PO SCH (13:48)
[2019-03-29] MEDS: ACETAMINOPHEN 325 MG TAB PO PRN (13:48)
[2019-03-29] MEDS: INSULIN LISPRO 100 UNIT/ML SUB-Q SCH (17:06)
--- NOTE | 2019-03-30 10:24 | Progress Note ---
Assessment and Plan - Patient Problems (1) 31 to 32 weeks gestation of Onset Date: 03/30/19 Current Visit: Yes Status: Acute Plan to address problem: A/P: Continue present management as per [facility] Recommendations : 1. Obtain US EFW and BPP 2. BPP Twice per week while undelivered 3. Antibiotics per protocol for PPROM 4. S/P Steroids for FLM 5. Hold Mg - OB had ordered hospitalist consult 6. NICU consult 7. Iron BID 8. 2200 ADA diet 9. Accuchecks fastings and 2 hour PP's 10. May continue Metformin 500 11. Lower Leg Dopplers 12. Sliding scale Reg Insulin if BS increase after Steroids for BS > 140 would give : BS -100/20 = units of Reg Insulin (2) premature rupture of membranes Onset Date: 03/30/19 Current Visit: Yes Status: Acute Qualifiers: PROM onset of labor timing: onset of labor more than 24 hours following rupture Qualified Code(s): O42.119 - premature rupture of membranes, onset of labor more than 24 hours following rupture, unspecified trimester Subjective - Subjective Date of service: 03/30/19 Principal diagnosis: IUP @ 31 4/7 weeks, PPROM, GDM Interval history: 39 y/o SF MARGE 05/28/19 Now EGA at 31 4/7 weeks Presented with PPROM 11:30pm 03/27/19 Denies fever chills abd pain - S/P Magnesium sulfate and Betamethasone Patient reports: loss of fluid, movement normal, contractions (c/o pins and needles in right calf.), no new complaints, no vaginal bleeding Objective - Vital Signs Vital Signs: Vital Signs - 12hr 03/30/19 03/30/19 03/30/19 02:58 03:17 08:26 Temperature 98.0 F Pulse Rate 72 72 Respiratory 16 Rate Blood Pressure 72/44 80/48 03/30/19 08:43 Temperature 98.8 F Pulse Rate Respiratory 16 Rate Blood Pressure - Exam Cardiovascular: Regular rate Abdomen: Present: normal appearance, soft Uterus: Present: normal FHR: category 1 Uterine Contraction Monitor Mode: External Uterine Contraction Pattern: Irregular Uterine Contraction Intensity: Mild - Labs Labs: Abnormal Labs 03/27/19 03/27/19 03/27/19 01:48 06:10 08:55 Hgb 9.6 L Hct 29.5 L MCV 75 L MCH 24 L POC Glucose 119 H Magnesium 3.50 H 03/27/19 03/27/19 03/27/19 09:19 14:55 19:57 Hgb Hct MCV MCH POC Glucose 123 H 125 H Magnesium 2.70 H 03/28/19 03/28/19 03/28/19 05:34 11:21 14:55 Hgb Hct MCV MCH POC Glucose 118 H 148 H 111 H Magnesium 03/28/19 19:47 Hgb Hct MCV MCH POC Glucose 117 H Magnesium Laboratory Results - last 24 hr 03/29/19 03/29/19 03/29/19 16:08 19:17 21:38 POC Glucose 102 95 88 Microbiology 03/27/19 11:08 Vaginal\Rectal Swab Group B Streptococcus Culture - Final 03/27/19 01:55 Urine,[place] Urine Culture - Final NO GROWTH AFTER 48 HOURS - Results US- obstetric: report reviewed (BPP 01/0203/27/19; TONY 3.5)
[2019-03-30] MEDS: LACTATED RINGERS 1,000 ML IV SCH (13:25)
[2019-03-30] MEDS: metFORMIN 500 MG TAB PO SCH ×2 (13:25→17:33)
[2019-03-30] MEDS: PRENATAL VIT27-FE FUMARATE-FOLIC ACID VIT TAB PO SCH (13:27)
[2019-03-30] MEDS: INSULIN LISPRO 100 UNIT/ML SUB-Q SCH ×2 (13:28→13:29)
[2019-03-30 16:46] LABS: Basophils % (Auto) 0.6 % (0.0-1.8); Eosinophils # (Auto) 0.1 K/mm3 (0.0-0.4); Eosinophils % (Auto) 0.8 % (0.0-4.3); Hematocrit 29.2 % (30.3-42.9); Hemoglobin 9.5 gm/dl (10.1-14.3); Lymphocytes # (Auto) 1.4 K/mm3 (1.2-5.4); Lymphocytes % (Auto) 19.5 % (13.4-35.0); Mean Corpuscular HGB Conc 33 % (30-34); Mean Corpuscular Volume 75 fl (79-97); Monocytes # (Auto) 0.6 K/mm3 (0.0-0.8); Monocytes % (Auto) 8.8 % (0.0-7.3); Platelet Count 205 K/mm3 (140-440); Red Blood Count 3.88 M/mm3 (3.65-5.03); Red Cell Distribution Width 15.1 % (13.2-15.2)
[2019-03-30] MEDS: BUTORPHANOL 2 MG/1 ML INJ IV PRN (19:59)
[2019-03-30] MEDS ORDERED: ONDANSETRON 4 MG/2 ML INJ IV ONE (21:38)
[2019-03-31] MEDS: LACTATED RINGERS 1,000 ML IV SCH ×3 (02:16→18:53)
[2019-03-31] MEDS ORDERED: SIMETHICONE 80 MG CHEW TAB PO PRN (02:23)
--- NOTE | 2019-03-31 07:48 | Consultation ---
History of Present Illness Consult date: 03/31/19 Requesting physician: VINNY SPARROW History of present illness: APA/MFM 03/31/19 HPI 39 y/o SF MARGE 05/28/19 Now EGW at 31 5/7 weeks Presented with PPROM 11:30pm on 03/27/19 Denies fever chills abd pain - Positive Leakage Pos - Occ contrax worse last pm now irregular ------- Recent Diag with GDM - On Metformin 500 q day dinner BS ' Most recent - 88, 95, 88 [place] right leg resolved - dopplers Lower Ext - Neg --------- Abd soft NT ext NT no edema neg homans Labs 03/30/19 H/H 9.5/ WBC at 7.3 EFM occ ctx, good accels , Categ I Past History - Obstetrical History : 4 Medications and Allergies Allergies Allergy/AdvReac Type Severity Reaction Status Date / Time No Known Allergies Allergy Unverified 07/27/15 21:54 Home Medications Medication Instructions Recorded Confirmed Last Taken Type Vitamin 1 tab PO DAILY 03/28/19 03/28/19 02/26/19 10:00 History metFORMIN [Glucophage] 500 mg PO DAILY 03/28/19 03/28/19 02/26/19 16:00 History Active Meds: Active Medications Acetaminophen (Tylenol) 650 mg PO Q4H PRN PRN Reason: Pain MILD(1-3)/Fever >100.5/MALIN Last Admin: 03/29/19 13:48 Dose: 650 mg Documented by: Butorphanol Tartrate (Stadol) 2 mg IV Q2H PRN PRN Reason: Labor Pain Last Admin: 03/30/19 19:59 Dose: 2 mg Documented by: Dextrose (D50w (25gm) Syringe) 50 ml IV Q30MIN PRN PRN Reason: Hypoglycemia Docusate Sodium (Colace) 100 mg PO Q12H PRN PRN Reason: Constipation Last Admin: 03/28/19 10:13 Dose: 100 mg Documented by: Lactated Ringer's (Lactated Ringers) 1,000 mls @ 125 mls/hr IV DIRECT SCHUYLER Last Admin: 03/31/19 02:16 Dose: 125 mls/hr Documented by: Magnesium Sulfate (Magnesium Sulfate 40gm/1000ml) 40 gm in 1,000 mls @ 50 mls/hr IV DIRECT SCHU[facility]ER Last Admin: 03/27/19 03:02 Dose: 2 gm/hr, 50 mls/hr Documented by: Insulin Human Lispro (Humalog) 0 unit SUB-Q ACHS SCHUYLER; Protocol Last Admin: 03/30/19 13:29 Dose: Not Given Documented by: Metformin HCl (Glucophage) 500 mg PO BIDDIAB [facility]ER Last Admin: 03/30/19 17:33 Dose: 500 mg Documented by: Multivitamins/Iron/Calcium ( Vitamin) 1 each PO QDAY [facility]ER Last Admin: 03/30/19 13:27 Dose: 1 each Documented by: Simethicone (Mylicon) 80 mg PO PC PRN PRN Reason: Gas pain Last Admin: 03/31/19 02:43 Dose: 80 mg Documented by: Zolpidem Tartrate (Ambien) 5 mg PO QHS PRN PRN Reason: Sleep Last Admin: 03/29/19 01:44 Dose: 5 mg Documented by: - Vital Signs Vital signs: Vital Signs Pulse BP 83 117/72 03/27/19 01:09 03/27/19 01:09 Temp Pulse Resp BP Pulse Ox 98.3 F 83 18 96/54 95 03/31/19 00:28 03/31/19 02:19 03/31/19 00:28 03/31/19 02:18 03/31/19 02:19 Results Result Diagrams: 03/30/19 16:40 Abnormal lab results 03/30/19 Range/Units 16:40 Hgb 9.5 L (10.1-14.3) gm/dl Hct 29.2 L (30.3-42.9) % MCV 75 L (79-97) fl MCH 25 L (28-32) pg [place] % (Auto) 8.8 H (0.0-7.3) % Seg Neutrophils % 70.3 H (40.0-70.0) % All other labs normal. Assessment and Plan Impression 1. [place] IUP at 31 5/7 weeks 2. PPROM 3. GDM 4. Anemia Recommendations 1. Delivery for S/S of chorio or Compromise 2. BPP Twice per week while undelivered 3. Antibiotics per protocol for PPROM 4. S/P Steroids 5. NICU consult done 6. Iron BID 7. 2200 ADA diet 8. Accuchecks fastings and 2 hour PP's 9. May continue Metformin 500 10. Sliding scale Reg Insulin if BS increase after Steroids for BS > 140 would give : BS -100/20 = units of Reg Insulin 11. Delivery at 34 weeks
[2019-03-31] MEDS: PRENATAL VIT27-FE FUMARATE-FOLIC ACID VIT TAB PO SCH (10:20)
--- NOTE | 2019-03-31 15:52 | Progress Note ---
Assessment and Plan - Patient Problems (1) 31 to 32 weeks gestation of Onset Date: 03/30/19 Current Visit: Yes Status: Acute (2) Gestational diabetes Current Visit: Yes Status: Acute (3) premature rupture of membranes Onset Date: 03/30/19 Current Visit: Yes Status: Acute Qualifiers: PROM onset of labor timing: onset of labor more than 24 hours following rupture Qualified Code(s): O42.119 - premature rupture of membranes, onset of labor more than 24 hours following rupture, unspecified trimester (4) Leg pain, right Current Visit: Yes Status: Acute Plan to address problem: Recommendations as per MFM: 1. Obtain US EFW and BPP 2. BPP Twice per week while undelivered [ordered for Sun/] 3. Antibiotics per protocol for PPROM [cbc ordered for /fridays] 4. Steroids for FLM (Accuchecks may increase) [completed] 5. Hold Mg - OB had ordered hospitalist consult 6. NICU consult 7. Iron BID 8. 0 ADA diet 9. Accuchecks fastings and 2 hour PP's 10. May continue Metformin 500 11. Lower Leg Dopplers 12. 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 Also has GDM 39 y/o SF MARGE 05/28/19 Now EGW at 31 5/7 weeks Denies fever chills abd pain - Occ contractions ------- Recent Diag with GDM - On Metformin 500 q day dinner Patient reports: loss of fluid, movement normal, contractions (c/o pins and needles in right calf.), no new complaints, no vaginal bleeding Objective - Vital Signs Vital Signs: Vital Signs - 12hr 03/31/19 03/31/19 03/31/19 08:44 08:45 09:03 Temperature 97.9 F Pulse Rate 73 72 Blood Pressure 89/53 92/55 O2 Sat by Pulse Oximetry 03/31/19 03/31/19 03/31/19 10:22 11:53 11:57 Temperature 97.7 F Pulse Rate 83 91 H Blood Pressure 93/58 O2 Sat by Pulse 96 94 Oximetry 03/31/19 14:42 Temperature 98.1 F Pulse Rate Blood Pressure O2 Sat by Pulse Oximetry - Exam Breasts: deferred Lungs: Normal air movement Abdomen: Present: normal appearance, soft, distention. Absent: tenderness, guarding FHR: category 1 Uterine Contraction Pattern: Absent - Labs Labs: Abnormal Labs 03/27/19 03/27/19 03/27/19 01:48 06:10 08:55 Hgb 9.6 L Hct 29.5 L MCV 75 L MCH 24 L [place] % (Auto) Seg Neutrophils % POC Glucose 119 H Magnesium 3.50 H 03/27/19 03/27/19 03/27/19 09:19 14:55 19:57 Hgb Hct MCV MCH [place] % (Auto) Seg Neutrophils % POC Glucose 123 H 125 H Magnesium 2.70 H 03/28/19 03/28/19 03/28/19 05:34 11:21 14:55 Hgb Hct MCV MCH [place] % (Auto) Seg Neutrophils % POC Glucose 118 H 148 H 111 H Magnesium 03/28/19 03/30/19 19:47 16:40 Hgb 9.5 L Hct 29.2 L MCV 75 L MCH 25 L [place] % (Auto) 8.8 H Seg Neutrophils % 70.3 H POC Glucose 117 H Magnesium Laboratory Results - last 24 hr 03/30/19 03/30/19 03/31/19 16:40 17:46 07:31 WBC 7.3 RBC 3.88 Hgb 9.5 L Hct 29.2 L MCV 75 L MCH 25 L MCHC 33 RDW 15.1 Plt Count 205 Lymph % (Auto) 19.5 [place] % (Auto) 8.8 H Eos % (Auto) 0.8 Baso % (Auto) 0.6 Lymph # 1.4 [place] # 0.6 Eos # 0.1 Baso # 0.0 Seg Neutrophils % 70.3 H Seg Neutrophils # 5.1 POC Glucose 88 Fasting Glucose 87
--- NOTE | 2019-03-31 20:10 | Ultrasound Report ---
ULTRASOUND BIOPHYSICAL PROFILE INDICATION / CLINICAL INFORMATION: Premature rupture of membranes. COMPARISON: None available. FINDINGS: BREATHING MOVEMENT = 0 GROSS BODY MOVEMENT = 2 TONE = 0 QUALITATIVE AMNIOTIC FLUID VOLUME = 0 TOTAL BIOPHYSICAL SCORE = 07/05 AMNIOTIC FLUID INDEX (cm) = 2.7 PRESENTATION: Breech. HEART RATE (beats per minute): 154 IMPRESSION: biophysical profile = 07/05 Signer Name: Juan Ramon Diop MD Signed: 03/31/2019 8:05 PM Workstation Name: [email or web address]
[2019-04-01] MEDS: ZOLPIDEM 5 MG TAB PO PRN ×2 (00:18→23:00)
[2019-04-01] MEDS: metFORMIN 500 MG TAB PO SCH ×2 (08:31→17:00)
[2019-04-01] MEDS: PRENATAL VIT27-FE FUMARATE-FOLIC ACID VIT TAB PO SCH (08:32)
[2019-04-01 09:29] LABS: Basophils % (Auto) 0.5 % (0.0-1.8); Eosinophils # (Auto) 0.1 K/mm3 (0.0-0.4); Eosinophils % (Auto) 1.3 % (0.0-4.3); Hematocrit 26.4 % (30.3-42.9); Hemoglobin 8.6 gm/dl (10.1-14.3); Lymphocytes # (Auto) 1.4 K/mm3 (1.2-5.4); Lymphocytes % (Auto) 21.5 % (13.4-35.0); Mean Corpuscular HGB Conc 32 % (30-34); Mean Corpuscular Volume 75 fl (79-97); Monocytes # (Auto) 0.5 K/mm3 (0.0-0.8); Monocytes % (Auto) 7.2 % (0.0-7.3); Platelet Count 185 K/mm3 (140-440); Red Blood Count 3.54 M/mm3 (3.65-5.03); Red Cell Distribution Width 15.4 % (13.2-15.2)
--- NOTE | 2019-04-01 10:42 | Ultrasound Report ---
ULTRASOUND BIOPHYSICAL PROFILE INDICATION: 07/05 BPP. well being COMPARISON: None available. FINDINGS: heart rate is 155 beats per minute. breathing movement = 2 Gross body movement = 2 tone = 2 Qualitative amniotic fluid volume = 0 IMPRESSION: biophysical profile = 11/02 Signer Name: Efren Godinez Jr, MD Signed: 04/01/2019 10:38 AM Workstation Name: [id number]
--- NOTE | 2019-04-01 13:41 | Progress Note ---
Subjective - Subjective Date of service: 04/01/19 Principal diagnosis: IUP @ 31 6/7 weeks, PPROM, GDM Interval history: AM note: transfer of care.Patient seen and examined on AM rounds No complaints PPROM at 31+6/7 weeks no complaints overnight: +ve irregular contractions, good movement repeat BPP this morning 11/02(2 off for PPROM/Oligo) Vitals: reviewed. see below FHT 140 baseline, moderate variability, appropriate for gestational age [place]: not alejandro Cervix: deferred A: PPROM P: continue expectant management deliver for maternal/ indication Will start PO abx per ACOG guidelines.. Patient has not been on Abx since 03/28/19. She received 8 doses of IV Amp and Erythro then they were d/c'd per hospital protocol and she was not started on PO abx. Afebrile. No s/s chorio. Maternal/ well being reassuring overall. Polo MCKNIGHT Vital Signs Intake & Output Vital Signs Temp 98.1 F 04/01/19 07:42 Pulse 82 04/01/19 12:25 Resp 18 04/01/19 07:42 BP 92/56 04/01/19 12:25 Pulse Ox 96 04/01/19 05:46 Intake & Output Patient reports: loss of fluid, movement normal, contractions (c/o pins and needles in right calf.), no new complaints, no vaginal bleeding Objective - Vital Signs Vital Signs: Vital Signs - 12hr 04/01/19 04/01/19 04/01/19 03:52 05:46 05:49 Temperature 98.2 F Pulse Rate 84 90 Respiratory 12 Rate Blood Pressure 90/57 O2 Sat by Pulse 96 Oximetry 04/01/19 04/01/19 04/01/19 06:15 07:42 07:44 Temperature 98.2 F 98.1 F Pulse Rate 79 Respiratory 12 18 Rate Blood Pressure 93/53 O2 Sat by Pulse Oximetry 04/01/19 12:25 Temperature Pulse Rate 82 Respiratory Rate Blood Pressure 92/56 O2 Sat by Pulse Oximetry - Labs Labs: Abnormal Labs 03/27/19 03/27/19 03/27/19 01:48 06:10 08:55 RBC Hgb 9.6 L Hct 29.5 L MCV 75 L MCH 24 L RDW [place] % (Auto) Seg Neutrophils % POC Glucose 119 H Magnesium 3.50 H 03/27/19 03/27/19 03/27/19 09:19 14:55 19:57 RBC Hgb Hct MCV MCH RDW [place] % (Auto) Seg Neutrophils % POC Glucose 123 H 125 H Magnesium 2.70 H 03/28/19 03/28/19 03/28/19 05:34 11:21 14:55 RBC Hgb Hct MCV MCH RDW [place] % (Auto) Seg Neutrophils % POC Glucose 118 H 148 H 111 H Magnesium 03/28/19 03/30/19 03/31/19 19:47 16:40 21:51 RBC Hgb 9.5 L Hct 29.2 L MCV 75 L MCH 25 L RDW [place] % (Auto) 8.8 H Seg Neutrophils % 70.3 H POC Glucose 117 H 127 H Magnesium 04/01/19 08:25 RBC 3.54 L Hgb 8.6 L Hct 26.4 L MCV 75 L MCH 24 L RDW 15.4 H [place] % (Auto) Seg Neutrophils % POC Glucose Magnesium Laboratory Results - last 24 hr 03/31/19 03/31/19 04/01/19 15:31 21:51 06:48 WBC RBC Hgb Hct MCV MCH MCHC RDW Plt Count Lymph % (Auto) [place] % (Auto) Eos % (Auto) Baso % (Auto) Lymph # [place] # Eos # Baso # Seg Neutrophils % Seg Neutrophils # POC Glucose 127 H 87 Hep Bs Antigen Non-reactive 04/01/19 04/01/19 04/01/19 08:00 08:25 12:44 WBC 6.6 RBC 3.54 L Hgb 8.6 L Hct 26.4 L MCV 75 L MCH 24 L MCHC 32 RDW 15.4 H Plt Count 185 Lymph % (Auto) 21.5 [place] % (Auto) 7.2 Eos % (Auto) 1.3 Baso % (Auto) 0.5 Lymph # 1.4 [place] # 0.5 Eos # 0.1 Baso # 0.0 Seg Neutrophils % 69.5 Seg Neutrophils # 4.6 POC Glucose 92 78 Hep Bs Antigen
[2019-04-01] MEDS: ERYTHROMYCIN BASE 250 MG CAPSULE DR PO SCH ×2 (16:59→22:04)
[2019-04-01] MEDS: AMOXICILLIN 250 MG CAP PO SCH (16:59)
[2019-04-01] MEDS: LACTATED RINGERS 1,000 ML IV SCH (19:45)
[2019-04-01] MEDS: ACETAMINOPHEN 325 MG TAB PO PRN (20:43)
[2019-04-01] MEDS: DOCUSATE SODIUM 100 MG CAP PO PRN (22:04)
[2019-04-02] MEDS: AMOXICILLIN 250 MG CAP PO SCH ×3 (01:06→17:16)
[2019-04-02] MEDS: ERYTHROMYCIN BASE 250 MG CAPSULE DR PO SCH ×4 (01:06→17:16)
[2019-04-02] MEDS: LACTATED RINGERS 1,000 ML IV SCH ×3 (04:36→19:36)
[2019-04-02 08:28] LABS: Basophils % (Auto) 0.5 % (0.0-1.8); Eosinophils # (Auto) 0.1 K/mm3 (0.0-0.4); Eosinophils % (Auto) 1.2 % (0.0-4.3); Hematocrit 28.3 % (30.3-42.9); Hemoglobin 9.2 gm/dl (10.1-14.3); Lymphocytes # (Auto) 1.5 K/mm3 (1.2-5.4); Lymphocytes % (Auto) 21.9 % (13.4-35.0); Mean Corpuscular HGB Conc 32 % (30-34); Mean Corpuscular Volume 75 fl (79-97); Monocytes # (Auto) 0.4 K/mm3 (0.0-0.8); Monocytes % (Auto) 6.1 % (0.0-7.3); Platelet Count 202 K/mm3 (140-440); Red Blood Count 3.77 M/mm3 (3.65-5.03); Red Cell Distribution Width 15.7 % (13.2-15.2)
[2019-04-02] MEDS: metFORMIN 500 MG TAB PO SCH ×2 (08:52→17:16)
[2019-04-02] MEDS: PRENATAL VIT27-FE FUMARATE-FOLIC ACID VIT TAB PO SCH (08:52)
[2019-04-02] MEDS: DOCUSATE SODIUM 100 MG CAP PO PRN (12:00)
--- NOTE | 2019-04-02 13:41 | Progress Note ---
Assessment and Plan - Patient Problems (1) 31 to 32 weeks gestation of Onset Date: 03/30/19 Current Visit: Yes Status: Acute (2) Gestational diabetes Current Visit: Yes Status: Acute Plan to address problem: Recommendations as per MFM: 1. Obtain US EFW and BPP 2. BPP Twice per week while undelivered [ordered for Mon/thurs] 3. Antibiotics per protocol for PPROM [cbc ordered for /fridays] 4. Steroids for FLM (Accuchecks may increase) [completed] 5. Hold Mg - OB had ordered hospitalist consult 6. NICU consult 7. Iron BID 8. 2200 ADA diet 9. Accuchecks fastings and 2 hour PP's 10. May continue Metformin 500 11. Lower Leg Dopplers 12. 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 Also has GDM 39 y/o SF MARGE 05/28/19 Now EGW at 32 weeks Denies fever chills abd pain - Occ contractions ------- Recent Diag with GDM - On Metformin 500 q day dinner No complaints, good movement Repeat BPP 04/01/2019 morning 6/8(2 off for PPROM/Oligo) Patient reports: loss of fluid, movement normal, contractions (c/o pins and needles in right calf.), no new complaints, no vaginal bleeding Objective - Vital Signs Vital Signs: Vital Signs - 12hr 04/02/19 04/02/19 04/02/19 04:38 07:50 07:51 Temperature 97.8 F 98.2 F Pulse Rate 86 81 Respiratory 20 18 Rate Blood Pressure 98/65 89/55 Blood Pressure 98/65 89/55 [Right] O2 Sat by Pulse 96 98 Oximetry 04/02/19 04/02/19 10:14 12:00 Temperature 97.5 F L 97.8 F Pulse Rate 86 Respiratory 18 Rate Blood Pressure 97/59 Blood Pressure 97/59 [Right] O2 Sat by Pulse 98 Oximetry - Exam Lungs: Normal air movement Abdomen: Present: normal appearance, soft. Absent: tenderness FHR: category 1 - Labs Labs: Abnormal Labs 03/27/19 03/27/19 03/27/19 01:48 06:10 08:55 RBC Hgb 9.6 L Hct 29.5 L MCV 75 L MCH 24 L RDW [place] % (Auto) Seg Neutrophils % POC Glucose 119 H Magnesium 3.50 H 03/27/19 03/27/19 03/27/19 09:19 14:55 19:57 RBC Hgb Hct MCV MCH RDW [place] % (Auto) Seg Neutrophils % POC Glucose 123 H 125 H Magnesium 2.70 H 03/28/19 03/28/19 03/28/19 05:34 11:21 14:55 RBC Hgb Hct MCV MCH RDW [place] % (Auto) Seg Neutrophils % POC Glucose 118 H 148 H 111 H Magnesium 03/28/19 03/30/19 03/31/19 19:47 16:40 21:51 RBC Hgb 9.5 L Hct 29.2 L MCV 75 L MCH 25 L RDW [place] % (Auto) 8.8 H Seg Neutrophils % 70.3 H POC Glucose 117 H 127 H Magnesium 04/01/19 04/01/19 04/02/19 08:25 17:12 08:08 RBC 3.54 L Hgb 8.6 L 9.2 L Hct 26.4 L 28.3 L MCV 75 L 75 L MCH 24 L 24 L RDW 15.4 H 15.7 H [place] % (Auto) Seg Neutrophils % 70.3 H POC Glucose 111 H Magnesium 04/02/19 12:07 RBC Hgb Hct MCV MCH RDW [place] % (Auto) Seg Neutrophils % POC Glucose 126 H Magnesium Laboratory Results - last 24 hr 04/01/19 04/01/19 04/02/19 17:12 22:12 08:08 WBC 6.7 RBC 3.77 Hgb 9.2 L Hct 28.3 L MCV 75 L MCH 24 L MCHC 32 RDW 15.7 H Plt Count 202 Lymph % (Auto) 21.9 [place] % (Auto) 6.1 Eos % (Auto) 1.2 Baso % (Auto) 0.5 Lymph # 1.5 [place] # 0.4 Eos # 0.1 Baso # 0.0 Seg Neutrophils % 70.3 H Seg Neutrophils # 4.7 POC Glucose 111 H 105 04/02/19 04/02/19 09:00 12:07 WBC RBC Hgb Hct MCV MCH MCHC RDW Plt Count Lymph % (Auto) [place] % (Auto) Eos % (Auto) Baso % (Auto) Lymph # [place] # Eos # Baso # Seg Neutrophils % Seg Neutrophils # POC Glucose 86 126 H
--- NOTE | 2019-04-02 20:17 | Ultrasound Report ---
ULTRASOUND BIOPHYSICAL PROFILE INDICATION / CLINICAL INFORMATION: Premature rupture of membranes. COMPARISON: 04/01/2019. FINDINGS: BREATHING MOVEMENT = 2 GROSS BODY MOVEMENT = 2 TONE = 2 QUALITATIVE AMNIOTIC FLUID VOLUME = 2 TOTAL BIOPHYSICAL SCORE = 01/02 HEART RATE (beats per minute): 154 IMPRESSION: 1. biophysical profile = 01/02 Signer Name: Dionte Klein MD Signed: 04/02/2019 8:13 PM Workstation Name: [id number]
[2019-04-02] MEDS: ZOLPIDEM 5 MG TAB PO PRN (22:15)
[2019-04-03] MEDS: LACTATED RINGERS 1,000 ML IV SCH ×3 (03:40→19:30)
[2019-04-03] MEDS: AMOXICILLIN 250 MG CAP PO SCH ×2 (03:41→12:02)
[2019-04-03] MEDS: ERYTHROMYCIN BASE 250 MG CAPSULE DR PO SCH ×3 (03:41→18:00)
[2019-04-03 07:46] LABS: Basophils # (Auto) 0.1 K/mm3 (0.0-0.1); Basophils % (Auto) 0.8 % (0.0-1.8); Eosinophils # (Auto) 0.1 K/mm3 (0.0-0.4); Eosinophils % (Auto) 1.2 % (0.0-4.3); Hematocrit 27.7 % (30.3-42.9); Lymphocytes # (Auto) 1.4 K/mm3 (1.2-5.4); Lymphocytes % (Auto) 19.2 % (13.4-35.0); Mean Corpuscular HGB Conc 33 % (30-34); Mean Corpuscular Volume 75 fl (79-97); Monocytes # (Auto) 0.5 K/mm3 (0.0-0.8); Monocytes % (Auto) 6.3 % (0.0-7.3); Platelet Count 198 K/mm3 (140-440); Red Blood Count 3.68 M/mm3 (3.65-5.03); Red Cell Distribution Width 15.7 % (13.2-15.2)
[2019-04-03] MEDS: metFORMIN 500 MG TAB PO SCH ×2 (09:27→18:00)
[2019-04-03] MEDS: PRENATAL VIT27-FE FUMARATE-FOLIC ACID VIT TAB PO SCH (09:28)
--- NOTE | 2019-04-03 15:44 | Progress Note ---
Assessment and Plan - Patient Problems (1) 31 to 32 weeks gestation of Onset Date: 03/30/19 Current Visit: Yes Status: Acute (2) Gestational diabetes Current Visit: Yes Status: Acute (3) premature rupture of membranes Onset Date: 03/30/19 Current Visit: Yes Status: Acute Qualifiers: PROM onset of labor timing: onset of labor more than 24 hours following rupture Qualified Code(s): O42.119 - premature rupture of membranes, onset of labor more than 24 hours following rupture, unspecified trimester (4) Leg pain, right Current Visit: Yes Status: Acute Plan to address problem: Recommendations as per MFM: 1. Obtain US EFW and BPP 2. BPP Twice per week while undelivered [ordered for Sun/] 3. Antibiotics per protocol for PPROM [cbc ordered for /fridays] 4. Steroids for FLM (Accuchecks may increase) [completed] 5. Hold Mg - OB had ordered hospitalist consult 6. NICU consult 7. Iron BID 8. 0 ADA diet 9. Accuchecks fastings and 2 hour PP's 10. May continue Metformin 500 11. Lower Leg Dopplers 12. 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 Also has GDM 39 y/o SF MARGE 05/28/19 Now EGW at 32+1weeks Denies fever chills abd pain - Occ contractions ------- Recent Diag with GDM - On Metformin 500 q day dinner No complaints, good movement Repeat BPP 04/02/2019 morning 01/02. Patient reports: loss of fluid, movement normal, contractions (c/o pins and needles in right calf.), no new complaints, no vaginal bleeding Objective - Vital Signs Vital Signs: Vital Signs - 12hr 04/03/19 04/03/19 04/03/19 08:33 08:35 12:05 Temperature 98.6 F Pulse Rate 90 89 85 Respiratory 20 Rate Blood Pressure 95/64 Blood Pressure 95/64 [Right] O2 Sat by Pulse 94 96 98 Oximetry 04/03/19 04/03/19 12:06 12:20 Temperature 98.4 F Pulse Rate 88 87 Respiratory 20 Rate Blood Pressure 92/58 Blood Pressure 98/62 [Right] O2 Sat by Pulse 99 Oximetry - Exam Lungs: Normal air movement Abdomen: Present: normal appearance, soft, distention. Absent: tenderness FHR: category 1 - Labs Labs: Abnormal Labs 03/27/19 03/27/19 03/27/19 01:48 06:10 08:55 RBC Hgb 9.6 L Hct 29.5 L MCV 75 L MCH 24 L RDW [place] % (Auto) Seg Neutrophils % POC Glucose 119 H Magnesium 3.50 H 03/27/19 03/27/19 03/27/19 09:19 14:55 19:57 RBC Hgb Hct MCV MCH RDW [place] % (Auto) Seg Neutrophils % POC Glucose 123 H 125 H Magnesium 2.70 H 03/28/19 03/28/19 03/28/19 05:34 11:21 14:55 RBC Hgb Hct MCV MCH RDW [place] % (Auto) Seg Neutrophils % POC Glucose 118 H 148 H 111 H Magnesium 03/28/19 03/30/19 03/31/19 19:47 16:40 21:51 RBC Hgb 9.5 L Hct 29.2 L MCV 75 L MCH 25 L RDW [place] % (Auto) 8.8 H Seg Neutrophils % 70.3 H POC Glucose 117 H 127 H Magnesium 04/01/19 04/01/19 04/02/19 08:25 17:12 08:08 RBC 3.54 L Hgb 8.6 L 9.2 L Hct 26.4 L 28.3 L MCV 75 L 75 L MCH 24 L 24 L RDW 15.4 H 15.7 H [place] % (Auto) Seg Neutrophils % 70.3 H POC Glucose 111 H Magnesium 04/02/19 04/02/19 04/02/19 12:07 17:16 22:28 RBC Hgb Hct MCV MCH RDW [place] % (Auto) Seg Neutrophils % POC Glucose 126 H 155 H 109 H Magnesium 04/03/19 07:27 RBC Hgb 9.0 L Hct 27.7 L MCV 75 L MCH 24 L RDW 15.7 H [place] % (Auto) Seg Neutrophils % 72.5 H POC Glucose Magnesium Laboratory Results - last 24 hr 04/02/19 04/02/19 04/03/19 17:16 22:28 07:24 WBC RBC Hgb Hct MCV MCH MCHC RDW Plt Count Lymph % (Auto) [place] % (Auto) Eos % (Auto) Baso % (Auto) Lymph # [place] # Eos # Baso # Seg Neutrophils % Seg Neutrophils # POC Glucose 155 H 109 H 89 04/03/19 04/03/19 07:27 11:47 WBC 7.5 RBC 3.68 Hgb 9.0 L Hct 27.7 L MCV 75 L MCH 24 L MCHC 33 RDW 15.7 H Plt Count 198 Lymph % (Auto) 19.2 [place] % (Auto) 6.3 Eos % (Auto) 1.2 Baso % (Auto) 0.8 Lymph # 1.4 [place] # 0.5 Eos # 0.1 Baso # 0.1 Seg Neutrophils % 72.5 H Seg Neutrophils # 5.4 POC Glucose 87
[2019-04-03] MEDS: ACETAMINOPHEN 325 MG TAB PO PRN (19:31)
[2019-04-03] MEDS: ZOLPIDEM 5 MG TAB PO PRN (23:18)
[2019-04-04] MEDS: ERYTHROMYCIN BASE 250 MG CAPSULE DR PO SCH ×5 (00:41→23:55)
[2019-04-04] MEDS: AMOXICILLIN 250 MG CAP PO SCH ×3 (06:44→22:31)
[2019-04-04 07:05] LABS: HIV-1 Antibody Differentiation SEE SCANNED RESULT; HIV-2 Antibody Differentiation SEE SCANNED RESULT
[2019-04-04] MEDS: metFORMIN 500 MG TAB PO SCH ×2 (08:23→19:19)
[2019-04-04 09:02] LABS: Basophils % (Auto) 0.6 % (0.0-1.8); Eosinophils # (Auto) 0.1 K/mm3 (0.0-0.4); Eosinophils % (Auto) 1.2 % (0.0-4.3); Hematocrit 27.3 % (30.3-42.9); Hemoglobin 8.8 gm/dl (10.1-14.3); Lymphocytes # (Auto) 1.6 K/mm3 (1.2-5.4); Lymphocytes % (Auto) 21.4 % (13.4-35.0); Mean Corpuscular HGB Conc 32 % (30-34); Mean Corpuscular Volume 75 fl (79-97); Monocytes # (Auto) 0.5 K/mm3 (0.0-0.8); Monocytes % (Auto) 6.3 % (0.0-7.3); Platelet Count 191 K/mm3 (140-440); Red Blood Count 3.66 M/mm3 (3.65-5.03); Red Cell Distribution Width 15.7 % (13.2-15.2)
--- NOTE | 2019-04-04 10:01 | Progress Note ---
Assessment and Plan - Patient Problems (1) premature rupture of membranes Onset Date: 03/30/19 Current Visit: Yes Status: Acute Qualifiers: PROM onset of labor timing: onset of labor more than 24 hours following ru pture Qualified Code(s): O42.119 - premature rupture of membranes, onset of labor more than 24 hours following rupture, unspecified trimester Plan to address problem: PT is stable and doing well. Afebrile. No evidence of chorio. Cont twice weekly BPP and CBCs. Cont Abx. (2) Gestational diabetes Current Visit: Yes Status: Acute Plan to address problem: Cont current meds. PT with good BC control Subjective - Subjective Date of service: 04/04/19 Principal diagnosis: IUP @ 32 2/7 weeks, PPROM, GDM Interval history: Pt doing well. No new complaints. Good FM. Good BG control. No VB. Patient reports: movement normal, contractions (no regular contractions. Only occasional cramping. ), no new complaints, no vaginal bleeding Objective - Vital Signs Vital Signs: Vital Signs - 12hr 04/04/19 08:20 Pulse Rate 81 Blood Pressure 94/61 - Exam Abdomen: Present: normal appearance, soft. Absent: tenderness FHR: category 1 FHR comments: 140s, reactive, mod LTV Uterine Contraction Pattern: Absent - Labs Labs: Abnormal Labs 03/27/19 03/27/19 03/27/19 01:48 06:10 08:55 RBC Hgb 9.6 L Hct 29.5 L MCV 75 L MCH 24 L RDW [place] % (Auto) Seg Neutrophils % POC Glucose 119 H Magnesium 3.50 H 03/27/19 03/27/19 03/27/19 09:19 14:55 19:57 RBC Hgb Hct MCV MCH RDW [place] % (Auto) Seg Neutrophils % POC Glucose 123 H 125 H Magnesium 2.70 H 03/28/19 03/28/19 03/28/19 05:34 11:21 14:55 RBC Hgb Hct MCV MCH RDW [place] % (Auto) Seg Neutrophils % POC Glucose 118 H 148 H 111 H Magnesium 03/28/19 03/30/19 03/31/19 19:47 16:40 21:51 RBC Hgb 9.5 L Hct 29.2 L MCV 75 L MCH 25 L RDW [place] % (Auto) 8.8 H Seg Neutrophils % 70.3 H POC Glucose 117 H 127 H Magnesium 04/01/19 04/01/19 04/02/19 08:25 17:12 08:08 RBC 3.54 L Hgb 8.6 L 9.2 L Hct 26.4 L 28.3 L MCV 75 L 75 L MCH 24 L 24 L RDW 15.4 H 15.7 H [place] % (Auto) Seg Neutrophils % 70.3 H POC Glucose 111 H Magnesium 04/02/19 04/02/19 04/02/19 12:07 17:16 22:28 RBC Hgb Hct MCV MCH RDW [place] % (Auto) Seg Neutrophils % POC Glucose 126 H 155 H 109 H Magnesium 04/03/19 04/04/19 07:27 08:39 RBC Hgb 9.0 L 8.8 L Hct 27.7 L 27.3 L MCV 75 L 75 L MCH 24 L 24 L RDW 15.7 H 15.7 H [place] % (Auto) Seg Neutrophils % 72.5 H 70.5 H POC Glucose Magnesium Laboratory Results - last 24 hr 03/31/19 03/31/19 04/03/19 15:31 16:26 11:47 WBC RBC Hgb Hct MCV MCH MCHC RDW Plt Count Lymph % (Auto) [place] % (Auto) Eos % (Auto) Baso % (Auto) Lymph # [place] # Eos # Baso # Seg Neutrophils % Seg Neutrophils # POC Glucose 87 HIV-1 Antibody See scanned result HIV-2 Ab (Immunoblot) See scanned result [place] IgM Antibody <20.00 04/03/19 04/03/19 04/04/19 18:14 23:00 06:28 WBC RBC Hgb Hct MCV MCH MCHC RDW Plt Count Lymph % (Auto) [place] % (Auto) Eos % (Auto) Baso % (Auto) Lymph # [place] # Eos # Baso # Seg Neutrophils % Seg Neutrophils # POC Glucose 100 85 91 HIV-1 Antibody HIV-2 Ab (Immunoblot) [place] IgM Antibody 04/04/19 08:39 WBC 7.4 RBC 3.66 Hgb 8.8 L Hct 27.3 L MCV 75 L MCH 24 L MCHC 32 RDW 15.7 H Plt Count 191 Lymph % (Auto) 21.4 [place] % (Auto) 6.3 Eos % (Auto) 1.2 Baso % (Auto) 0.6 Lymph # 1.6 [place] # 0.5 Eos # 0.1 Baso # 0.0 Seg Neutrophils % 70.5 H Seg Neutrophils # 5.2 POC Glucose HIV-1 Antibody HIV-2 Ab (Immunoblot) [place] IgM Antibody
[2019-04-04] MEDS: PRENATAL VIT27-FE FUMARATE-FOLIC ACID VIT TAB PO SCH (10:28)
[2019-04-04] MEDS: LACTATED RINGERS 1,000 ML IV SCH ×2 (11:38→22:41)
[2019-04-04] MEDS: ZOLPIDEM 5 MG TAB PO PRN (22:40)
[2019-04-05] MEDS: AMOXICILLIN 250 MG CAP PO SCH ×3 (05:59→21:45)
[2019-04-05] MEDS: ERYTHROMYCIN BASE 250 MG CAPSULE DR PO SCH ×3 (05:59→19:26)
[2019-04-05] MEDS: LACTATED RINGERS 1,000 ML IV SCH ×2 (07:33→17:11)
[2019-04-05 08:29] LABS: Basophils # (Auto) 0.1 K/mm3 (0.0-0.1); Basophils % (Auto) 1.1 % (0.0-1.8); Eosinophils % (Auto) 0.6 % (0.0-4.3); Hematocrit 30.2 % (30.3-42.9); Hemoglobin 9.8 gm/dl (10.1-14.3); Lymphocytes # (Auto) 1.5 K/mm3 (1.2-5.4); Lymphocytes % (Auto) 22.3 % (13.4-35.0); Mean Corpuscular HGB Conc 33 % (30-34); Mean Corpuscular Volume 75 fl (79-97); Monocytes # (Auto) 0.4 K/mm3 (0.0-0.8); Monocytes % (Auto) 5.9 % (0.0-7.3); Platelet Count 219 K/mm3 (140-440); Red Blood Count 4.02 M/mm3 (3.65-5.03)
[2019-04-05] MEDS: PRENATAL VIT27-FE FUMARATE-FOLIC ACID VIT TAB PO SCH (08:31)
[2019-04-05] MEDS: metFORMIN 500 MG TAB PO SCH ×2 (08:31→17:27)
--- NOTE | 2019-04-05 11:02 | Progress Note ---
Assessment and Plan A: at 32 weeks, 3 days gestation. PPROM. GDM; sugars well controlled. P: Continue current management. Continue antibiotics for latency. Subjective - Subjective Date of service: 04/05/19 Principal diagnosis: IUP @ 32 3/7 weeks, PPROM, GDM Interval history: requested porcelain slusher to see patient. Patient has no complaints today. Specifically she denies contractions, foul odor, uterine or abdominal tenderness, fever, or chills. Patient reports active movement. Patient denies vaginal bleeding. Patient is receiving antibiotics for latency. GDM; sugars well controlled. Vital signs stable and patient remains afebrile. Patient reports: movement normal, contractions (no regular contractions. Only occasional cramping. ), no new complaints, no vaginal bleeding Objective - Vital Signs Vital Signs: Vital Signs - 12hr 04/05/19 04/05/19 04/05/19 03:37 03:38 06:00 Temperature 98.0 F 97.7 F Pulse Rate 87 Respiratory 16 Rate Blood Pressure 93/58 Blood Pressure [Right] 04/05/19 04/05/19 07:35 07:37 Temperature 97.8 F Pulse Rate 86 86 Respiratory 18 Rate Blood Pressure 97/60 Blood Pressure 97/60 [Right] - Exam Abdomen: Present: normal appearance, soft. Absent: distention, tenderness, guarding, rigidity Uterus: Present: normal, fundal height above umbilicus. Absent: tenderness FHR: category 1 Uterine Contraction Monitor Mode: External Uterine Contraction Pattern: Absent Extremities: normal - Labs Labs: Abnormal Labs 03/27/19 03/27/19 03/27/19 01:48 06:10 08:55 RBC Hgb 9.6 L Hct 29.5 L MCV 75 L MCH 24 L RDW [place] % (Auto) Seg Neutrophils % POC Glucose 119 H Magnesium 3.50 H 03/27/19 03/27/19 03/27/19 09:19 14:55 19:57 RBC Hgb Hct MCV MCH RDW [place] % (Auto) Seg Neutrophils % POC Glucose 123 H 125 H Magnesium 2.70 H 03/28/19 03/28/19 03/28/19 05:34 11:21 14:55 RBC Hgb Hct MCV MCH RDW [place] % (Auto) Seg Neutrophils % POC Glucose 118 H 148 H 111 H Magnesium 03/28/19 03/30/19 03/31/19 19:47 16:40 21:51 RBC Hgb 9.5 L Hct 29.2 L MCV 75 L MCH 25 L RDW [place] % (Auto) 8.8 H Seg Neutrophils % 70.3 H POC Glucose 117 H 127 H Magnesium 04/01/19 04/01/19 04/02/19 08:25 17:12 08:08 RBC 3.54 L Hgb 8.6 L 9.2 L Hct 26.4 L 28.3 L MCV 75 L 75 L MCH 24 L 24 L RDW 15.4 H 15.7 H [place] % (Auto) Seg Neutrophils % 70.3 H POC Glucose 111 H Magnesium 04/02/19 04/02/19 04/02/19 12:07 17:16 22:28 RBC Hgb Hct MCV MCH RDW [place] % (Auto) Seg Neutrophils % POC Glucose 126 H 155 H 109 H Magnesium 04/03/19 04/04/19 04/05/19 07:27 08:39 08:00 RBC Hgb 9.0 L 8.8 L 9.8 L Hct 27.7 L 27.3 L 30.2 L MCV 75 L 75 L 75 L MCH 24 L 24 L 25 L RDW 15.7 H 15.7 H 16.0 H [place] % (Auto) Seg Neutrophils % 72.5 H 70.5 H 70.1 H POC Glucose Magnesium Laboratory Results - last 24 hr 04/04/19 04/04/19 04/04/19 08:35 11:53 17:08 WBC RBC Hgb Hct MCV MCH MCHC RDW Plt Count Lymph % (Auto) [place] % (Auto) Eos % (Auto) Baso % (Auto) Lymph # [place] # Eos # Baso # Seg Neutrophils % Seg Neutrophils # POC Glucose 86 94 76 04/04/19 04/05/19 04/05/19 22:43 07:41 08:00 WBC 7.0 RBC 4.02 Hgb 9.8 L Hct 30.2 L MCV 75 L MCH 25 L MCHC 33 RDW 16.0 H Plt Count 219 Lymph % (Auto) 22.3 [place] % (Auto) 5.9 Eos % (Auto) 0.6 Baso % (Auto) 1.1 Lymph # 1.5 [place] # 0.4 Eos # 0.0 Baso # 0.1 Seg Neutrophils % 70.1 H Seg Neutrophils # 4.9 POC Glucose 90 100
[2019-04-05] MEDS: ZOLPIDEM 5 MG TAB PO PRN (21:45)
[2019-04-06] MEDS: ERYTHROMYCIN BASE 250 MG CAPSULE DR PO SCH ×3 (00:06→12:02)
[2019-04-06] MEDS: LACTATED RINGERS 1,000 ML IV SCH ×3 (00:08→16:16)
[2019-04-06] MEDS: AMOXICILLIN 250 MG CAP PO SCH ×2 (05:39→14:13)
[2019-04-06] MEDS: INSULIN LISPRO 100 UNIT/ML SUB-Q SCH ×2 (07:42→22:09)
[2019-04-06] MEDS: metFORMIN 500 MG TAB PO SCH ×2 (08:28→17:30)
[2019-04-06] MEDS: PRENATAL VIT27-FE FUMARATE-FOLIC ACID VIT TAB PO SCH (10:54)
[2019-04-06 11:16] LABS: Basophils % (Auto) 0.7 % (0.0-1.8); Eosinophils % (Auto) 0.5 % (0.0-4.3); Hematocrit 26.8 % (30.3-42.9); Hemoglobin 8.6 gm/dl (10.1-14.3); Lymphocytes # (Auto) 1.2 K/mm3 (1.2-5.4); Lymphocytes % (Auto) 18.6 % (13.4-35.0); Mean Corpuscular HGB Conc 32 % (30-34); Mean Corpuscular Volume 75 fl (79-97); Monocytes # (Auto) 0.5 K/mm3 (0.0-0.8); Monocytes % (Auto) 7.1 % (0.0-7.3); Platelet Count 191 K/mm3 (140-440); Red Blood Count 3.55 M/mm3 (3.65-5.03); Red Cell Distribution Width 15.9 % (13.2-15.2)
--- NOTE | 2019-04-06 18:33 | Progress Note ---
Assessment and Plan A: at 32 weeks, 3 days gestation. PPROM. Category 1 heart rate tracing. Gestational diabetes; sugars well controlled. P: Continue current management. Subjective - Subjective Date of service: 04/06/19 Principal diagnosis: IUP @ 32 3/7 weeks, PPROM, GDM Interval history: MD requested trimmer tailer to see patient. Patient has no complaints today. Specifically she denies contractions, foul odor, uterine or abdominal tenderness, fever, or chills. Patient reports active movement. Patient denies vaginal bleeding. Patient is receiving antibiotics for latency. GDM; sugars well controlled. Vital signs stable and patient remains afebrile. Patient reports: movement normal, contractions (no regular contractions. Only occasional cramping. ), no new complaints, no vaginal bleeding Objective - Vital Signs Vital Signs: Vital Signs - 12hr 04/06/19 04/06/19 04/06/19 08:14 08:16 11:56 Temperature 97.8 F Pulse Rate 83 83 86 Respiratory 18 Rate Blood Pressure 90/53 78/45 Blood Pressure 90/53 [Right] 04/06/19 04/06/19 04/06/19 11:58 11:59 16:17 Temperature 98.3 F 98.4 F Pulse Rate 86 86 92 H Respiratory 18 18 Rate Blood Pressure 86/51 Blood Pressure 86/51 98/60 [Right] 04/06/19 04/06/19 16:18 16:44 Temperature 98.2 F Pulse Rate 92 H 102 H Respiratory 18 Rate Blood Pressure 98/60 Blood Pressure 115/62 [Right] - Exam Cardiovascular: Regular rate, Normal S1, Normal S2, No murmurs Lungs: Clear to auscultation Abdomen: Present: normal appearance, soft. Absent: distention, tenderness, guarding, rigidity Uterus: Present: normal, fundal height above umbilicus. Absent: tenderness FHR: category 1 Uterine Contraction Monitor Mode: External Uterine Contraction Pattern: Absent Extremities: normal - Labs Labs: Abnormal Labs 03/27/19 03/27/19 03/27/19 01:48 06:10 08:55 RBC Hgb 9.6 L Hct 29.5 L MCV 75 L MCH 24 L RDW [place] % (Auto) Seg Neutrophils % POC Glucose 119 H Magnesium 3.50 H 03/27/19 03/27/19 03/27/19 09:19 14:55 19:57 RBC Hgb Hct MCV MCH RDW [place] % (Auto) Seg Neutrophils % POC Glucose 123 H 125 H Magnesium 2.70 H 03/28/19 03/28/19 03/28/19 05:34 11:21 14:55 RBC Hgb Hct MCV MCH RDW [place] % (Auto) Seg Neutrophils % POC Glucose 118 H 148 H 111 H Magnesium 03/28/19 03/30/19 03/31/19 19:47 16:40 21:51 RBC Hgb 9.5 L Hct 29.2 L MCV 75 L MCH 25 L RDW [place] % (Auto) 8.8 H Seg Neutrophils % 70.3 H POC Glucose 117 H 127 H Magnesium 04/01/19 04/01/19 04/02/19 08:25 17:12 08:08 RBC 3.54 L Hgb 8.6 L 9.2 L Hct 26.4 L 28.3 L MCV 75 L 75 L MCH 24 L 24 L RDW 15.4 H 15.7 H [place] % (Auto) Seg Neutrophils % 70.3 H POC Glucose 111 H Magnesium 04/02/19 04/02/19 04/02/19 12:07 17:16 22:28 RBC Hgb Hct MCV MCH RDW [place] % (Auto) Seg Neutrophils % POC Glucose 126 H 155 H 109 H Magnesium 04/03/19 04/04/19 04/05/19 07:27 08:39 08:00 RBC Hgb 9.0 L 8.8 L 9.8 L Hct 27.7 L 27.3 L 30.2 L MCV 75 L 75 L 75 L MCH 24 L 24 L 25 L RDW 15.7 H 15.7 H 16.0 H [place] % (Auto) Seg Neutrophils % 72.5 H 70.5 H 70.1 H POC Glucose Magnesium 04/05/19 04/05/19 04/06/19 17:26 21:50 10:51 RBC 3.55 L Hgb 8.6 L Hct 26.8 L MCV 75 L MCH 24 L RDW 15.9 H [place] % (Auto) Seg Neutrophils % 73.1 H POC Glucose 118 H 106 H Magnesium Laboratory Results - last 24 hr 04/05/19 04/06/19 04/06/19 21:50 05:53 10:51 WBC 6.4 RBC 3.55 L Hgb 8.6 L Hct 26.8 L MCV 75 L MCH 24 L MCHC 32 RDW 15.9 H Plt Count 191 Lymph % (Auto) 18.6 [place] % (Auto) 7.1 Eos % (Auto) 0.5 Baso % (Auto) 0.7 Lymph # 1.2 [place] # 0.5 Eos # 0.0 Baso # 0.0 Seg Neutrophils % 73.1 H Seg Neutrophils # 4.7 POC Glucose 106 H 92 04/06/19 11:11 WBC RBC Hgb Hct MCV MCH MCHC RDW Plt Count Lymph % (Auto) [place] % (Auto) Eos % (Auto) Baso % (Auto) Lymph # [place] # Eos # Baso # Seg Neutrophils % Seg Neutrophils # POC Glucose 105
[2019-04-06] MEDS: ZOLPIDEM 5 MG TAB PO PRN (22:15)
[2019-04-07] MEDS: LACTATED RINGERS 1,000 ML IV SCH ×2 (01:00→12:30)
[2019-04-07] MEDS: metFORMIN 500 MG TAB PO SCH ×2 (08:41→17:12)
[2019-04-07 09:00] LABS: Basophils # (Auto) 0.1 K/mm3 (0.0-0.1); Eosinophils # (Auto) 0.1 K/mm3 (0.0-0.4); Eosinophils % (Auto) 0.8 % (0.0-4.3); Hematocrit 27.7 % (30.3-42.9); Hemoglobin 8.9 gm/dl (10.1-14.3); Lymphocytes # (Auto) 1.4 K/mm3 (1.2-5.4); Lymphocytes % (Auto) 19.7 % (13.4-35.0); Mean Corpuscular HGB Conc 32 % (30-34); Mean Corpuscular Volume 75 fl (79-97); Monocytes # (Auto) 0.5 K/mm3 (0.0-0.8); Monocytes % (Auto) 7.5 % (0.0-7.3); Platelet Count 199 K/mm3 (140-440); Red Blood Count 3.69 M/mm3 (3.65-5.03); Red Cell Distribution Width 16.4 % (13.2-15.2)
[2019-04-07] MEDS: PRENATAL VIT27-FE FUMARATE-FOLIC ACID VIT TAB PO SCH (09:53)
--- NOTE | 2019-04-07 12:57 | Progress Note ---
Subjective - Subjective Date of service: 04/07/19 Principal diagnosis: IUP @ 32 3/7 weeks, PPROM, GDM Interval history: AM note: transfer of care.Patient seen and examined on AM rounds No complaints PPROM at 32+3/7 weeks no complaints overnight: +ve irregular mild contractions, good movement denies LOF, fevers, chills or abdominal pain Vitals: reviewed. see below FHT 140 baseline, moderate variability, appropriate for gestational age Emery: not alejandro Cervix: deferred A: PPROM P: continue expectant management serial labs, BPP/TONY deliver for maternal/ indication S/P abx, no s/s chorio Vital Signs Temp 98 F 04/07/19 11:40 Pulse 82 04/07/19 11:40 Resp 18 04/07/19 11:40 BP 90/59 04/07/19 11:40 Pulse Ox 100 04/03/19 19:22 Intake & Output 04/06/19 04/07/19 04/07/19 23:59 11:59 23:59 Intake Total 1240 1000 Balance 1240 1000 Weight 73.028 kg Intake: IV 1000 1000 Lactated Ringers 1,000 ml 1000 1000 @ 125 mls/hr IV DIRECT SCHUYLER Rx#:[id number] Oral 240 Other: Total, Intake Amount 240 # Voids Indwelling Catheter 1 Void 1 1 # Bowel Movements 1 Maternal/ well being reassuring overall. [place] MCKNIGHT Vital Signs Intake & Output Vital Signs Temp 98.1 F 04/01/19 07:42 Pulse 82 04/01/19 12:25 Resp 18 04/01/19 07:42 BP 92/56 04/01/19 12:25 Pulse Ox 96 04/01/19 05:46 Intake & Output Patient reports: movement normal, contractions (no regular contractions. Only occasional cramping. ), no new complaints, no vaginal bleeding Objective - Vital Signs Vital Signs: Vital Signs - 12hr 04/07/19 04/07/19 04/07/19 00:56 01:03 03:53 Temperature 97.9 F Pulse Rate 93 H 93 H 77 Respiratory 18 Rate Blood Pressure 96/63 91/54 Blood Pressure 96/63 [Right] 04/07/19 04/07/19 04/07/19 03:59 07:46 07:53 Temperature 98.2 F 97.6 F Pulse Rate 71 77 77 Respiratory 20 18 Rate Blood Pressure 97/55 Blood Pressure 91/54 97/55 [Right] 04/07/19 04/07/19 11:39 11:40 Temperature 98 F Pulse Rate 82 82 Respiratory 18 Rate Blood Pressure 90/59 Blood Pressure 90/59 [Right] - Labs Labs: Abnormal Labs 03/27/19 03/27/19 03/27/19 01:48 06:10 08:55 RBC Hgb 9.6 L Hct 29.5 L MCV 75 L MCH 24 L RDW [place] % (Auto) Seg Neutrophils % POC Glucose 119 H Magnesium 3.50 H 03/27/19 03/27/19 03/27/19 09:19 14:55 19:57 RBC Hgb Hct MCV MCH RDW [place] % (Auto) Seg Neutrophils % POC Glucose 123 H 125 H Magnesium 2.70 H 03/28/19 03/28/19 03/28/19 05:34 11:21 14:55 RBC Hgb Hct MCV MCH RDW [place] % (Auto) Seg Neutrophils % POC Glucose 118 H 148 H 111 H Magnesium 03/28/19 03/30/19 03/31/19 19:47 16:40 21:51 RBC Hgb 9.5 L Hct 29.2 L MCV 75 L MCH 25 L RDW [place] % (Auto) 8.8 H Seg Neutrophils % 70.3 H POC Glucose 117 H 127 H Magnesium 04/01/19 04/01/19 04/02/19 08:25 17:12 08:08 RBC 3.54 L Hgb 8.6 L 9.2 L Hct 26.4 L 28.3 L MCV 75 L 75 L MCH 24 L 24 L RDW 15.4 H 15.7 H [place] % (Auto) Seg Neutrophils % 70.3 H POC Glucose 111 H Magnesium 04/02/19 04/02/19 04/02/19 12:07 17:16 22:28 RBC Hgb Hct MCV MCH RDW [place] % (Auto) Seg Neutrophils % POC Glucose 126 H 155 H 109 H Magnesium 04/03/19 04/04/19 04/05/19 07:27 08:39 08:00 RBC Hgb 9.0 L 8.8 L 9.8 L Hct 27.7 L 27.3 L 30.2 L MCV 75 L 75 L 75 L MCH 24 L 24 L 25 L RDW 15.7 H 15.7 H 16.0 H [place] % (Auto) Seg Neutrophils % 72.5 H 70.5 H 70.1 H POC Glucose Magnesium 04/05/19 04/05/19 04/06/19 17:26 21:50 10:51 RBC 3.55 L Hgb 8.6 L Hct 26.8 L MCV 75 L MCH 24 L RDW 15.9 H [place] % (Auto) Seg Neutrophils % 73.1 H POC Glucose 118 H 106 H Magnesium 04/06/19 04/07/19 15:55 08:29 RBC Hgb 8.9 L Hct 27.7 L MCV 75 L MCH 24 L RDW 16.4 H [place] % (Auto) 7.5 H Seg Neutrophils % 71.0 H POC Glucose 129 H Magnesium Laboratory Results - last 24 hr 04/06/19 04/06/19 04/07/19 15:55 22:16 08:06 WBC RBC Hgb Hct MCV MCH MCHC RDW Plt Count Lymph % (Auto) [place] % (Auto) Eos % (Auto) Baso % (Auto) Lymph # [place] # Eos # Baso # Seg Neutrophils % Seg Neutrophils # POC Glucose 129 H 90 73 04/07/19 04/07/19 08:29 11:52 WBC 6.9 RBC 3.69 Hgb 8.9 L Hct 27.7 L MCV 75 L MCH 24 L MCHC 32 RDW 16.4 H Plt Count 199 Lymph % (Auto) 19.7 [place] % (Auto) 7.5 H Eos % (Auto) 0.8 Baso % (Auto) 1.0 Lymph # 1.4 [place] # 0.5 Eos # 0.1 Baso # 0.1 Seg Neutrophils % 71.0 H Seg Neutrophils # 4.9 POC Glucose 91
--- NOTE | 2019-04-07 13:44 | Consultation ---
History of Present Illness Consult date: 04/07/19 Requesting physician: VINNY SPARROW History of present illness: [facility]/MFM 04/07/19 39 y/o SF MARGE 05/28/19 Now EGW at 32 5/7 weeks Presented with PPROM 11:30pm on 03/26/19 Denies fever chills abd pain - Pos - Occ contrax ------- Recent Diag with GDM - On Metformin 500 q day dinner BS Log fastings 104-122 2 HPP's most < 120's In House BS's well controlled US 04/02/19 - BPP 01/02 EFM - Categ I per nurse baseline Past History - Obstetrical History : 4 Medications and Allergies Allergies Allergy/AdvReac Type Severity Reaction Status Date / Time No Known Allergies Allergy Unverified 07/27/15 21:54 Home Medications Medication Instructions Recorded Confirmed Last Taken Type Vitamin 1 tab PO DAILY 03/28/19 03/28/19 02/26/19 10:00 History metFORMIN [Glucophage] 500 mg PO DAILY 03/28/19 03/28/19 02/26/19 16:00 History Active Meds: Active Medications Acetaminophen (Tylenol) 650 mg PO Q6H PRN PRN Reason: Pain, Moderate (4-6) Butorphanol Tartrate (Stadol) 2 mg IV Q2H PRN PRN Reason: Labor Pain Last Admin: 03/30/19 19:59 Dose: 2 mg Documented by: Dextrose (D50w (25gm) Syringe) 50 ml IV Q30MIN PRN PRN Reason: Hypoglycemia Docusate Sodium (Colace) 100 mg PO Q12H PRN PRN Reason: Constipation Last Admin: 04/02/19 12:00 Dose: 100 mg Documented by: Lactated Ringer's (Lactated Ringers) 1,000 mls @ 125 mls/hr IV DIRECT SCHUYLER Last Admin: 04/07/19 12:30 Dose: 125 mls/hr Documented by: Magnesium Sulfate (Magnesium Sulfate 40gm/1000ml) 40 gm in 1,000 mls @ 50 mls/hr IV DIRECT [facility] Last Admin: 03/27/19 03:02 Dose: 2 gm/hr, 50 mls/hr Documented by: Insulin Human Lispro (Humalog) 0 unit SUB-Q ACHS [facility]; Protocol Last Admin: 04/06/19 22:09 Dose: Not Given Documented by: Metformin HCl (Glucophage) 500 mg PO BIDDIAB [facility] Last Admin: 04/07/19 08:41 Dose: 500 mg Documented by: Multivitamins/Iron/Calcium ( Vitamin) 1 each PO QDAY [facility] Last Admin: 04/07/19 09:53 Dose: 1 each Documented by: Simethicone (Mylicon) 80 mg PO PC PRN PRN Reason: Gas pain Last Admin: 03/31/19 02:43 Dose: 80 mg Documented by: Zolpidem Tartrate (Ambien) 5 mg PO QHS PRN PRN Reason: Sleep Last Admin: 04/06/19 22:15 Dose: 5 mg Documented by: - Vital Signs Vital signs: Vital Signs Pulse BP 83 117/72 03/27/19 01:09 03/27/19 01:09 Temp Pulse Resp BP Pulse Ox 98 F 82 18 90/59 100 04/07/19 11:40 04/07/19 11:40 04/07/19 11:40 04/07/19 11:40 04/03/19 19:22 Results Result Diagrams: 04/07/19 08:29 Abnormal lab results 04/06/19 04/07/19 Range/Units 15:55 08:29 Hgb 8.9 L (10.1-14.3) gm/dl Hct 27.7 L (30.3-42.9) % MCV 75 L (79-97) fl MCH 24 L (28-32) pg RDW 16.4 H (13.2-15.2) % [place] % (Auto) 7.5 H (0.0-7.3) % Seg Neutrophils % 71.0 H (40.0-70.0) % POC Glucose 129 H (70-105) All other labs normal. Assessment and Plan Impression 1. [place] IUP at 32 5/7 weeks 2. PPROM 3. GDM 4. Anemia Recommendations 1. BPP ordered today 04/07/19 2. BPP Twice per week while undelivered 3. Antibiotics per protocol for PPROM - Done 4. Steroids Done 5. Delivery at 34 weeks 6. NICU consult 7. Iron BID 8. 2200 ADA diet 9. Accuchecks fastings and 2 hour PP's 10. Continue Metformin 500 11. Sliding scale Reg Insulin if BS increase after Steroids for BS > 140 would give : BS -100/20 = units of Reg Insulin
--- NOTE | 2019-04-07 17:18 | Ultrasound Report ---
ULTRASOUND BIOPHYSICAL PROFILE INDICATION / CLINICAL INFORMATION: Premature rupture of membranes. well-being. COMPARISON: 04/02/2019. FINDINGS: BREATHING MOVEMENT = 2 GROSS BODY MOVEMENT = 2 TONE = 2 QUALITATIVE AMNIOTIC FLUID VOLUME = 2 TOTAL BIOPHYSICAL SCORE = 8/8 DEEPEST VERTICAL POCKET AMNIOTIC FLUID (cm) = 2.6 PRESENTATION: Cephalic. HEART RATE (beats per minute): 161 IMPRESSION: biophysical profile = 01/02 Signer Name: Juan Ramon Diop MD Signed: 04/07/2019 5:13 PM Workstation Name: [id number]
[2019-04-07] MEDS: ZOLPIDEM 5 MG TAB PO PRN (22:17)
[2019-04-07] MEDS: INSULIN LISPRO 100 UNIT/ML SUB-Q SCH (22:18)
[2019-04-08] MEDS: metFORMIN 500 MG TAB PO SCH ×3 (08:00→17:10)
[2019-04-08 08:50] LABS: Hematocrit 27.4 % (30.3-42.9); Hemoglobin 8.8 gm/dl (10.1-14.3); Mean Corpuscular HGB Conc 32 % (30-34); Mean Corpuscular Volume 75 fl (79-97); Platelet Count 192 K/mm3 (140-440); Red Blood Count 3.65 M/mm3 (3.65-5.03); Red Cell Distribution Width 16.6 % (13.2-15.2)
[2019-04-08] MEDS: PRENATAL VIT27-FE FUMARATE-FOLIC ACID VIT TAB PO SCH ×2 (10:12→10:14)
[2019-04-08] MEDS: LACTATED RINGERS 1,000 ML IV SCH ×2 (12:30→20:13)
[2019-04-08] MEDS: INSULIN LISPRO 100 UNIT/ML SUB-Q SCH ×3 (12:38→22:23)
--- NOTE | 2019-04-08 13:58 | Progress Note ---
Assessment and Plan - Patient Problems (1) Gestational diabetes Current Visit: Yes Status: Acute (2) Leg pain, right Current Visit: Yes Status: Acute (3) with 32 completed weeks gestation Current Visit: Yes Status: Acute (4) premature rupture of membranes Onset Date: 03/30/19 Current Visit: Yes Status: Acute Qualifiers: PROM onset of labor timing: onset of labor more than 24 hours following rup ture Qualified Code(s): O42.119 - premature rupture of membranes, onset of labor more than 24 hours following rupture, unspecified trimester Plan to address problem: Recommendations by MFM 1. BPP ordered today 04/07/19 2. BPP Twice per week while undelivered 3. Antibiotics per protocol for PPROM - Done 4. Steroids Done 5. Delivery at 34 weeks 6. NICU consult 7. Iron BID 8. 2200 ADA diet 9. Accuchecks fastings and 2 hour PP's 10. Continue Metformin 500 11. 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 Also has GDM 39 y/o SF MARGE 05/28/19 Now EGW at 32+6 weeks Denies fever chills abd pain - Occ contractions ------- Recent Diag with GDM - On Metformin 500 q day dinner No complaints, eating lunch, good movement. Patient reports: loss of fluid, movement normal, contractions (no regular contractions. Only occasional cramping. ), no new complaints, no vaginal bleeding Objective - Vital Signs Vital Signs: Vital Signs - 12hr 04/08/19 04/08/19 04/08/19 04:11 07:19 07:24 Temperature 98.1 F 97.7 F Pulse Rate 89 92 H 88 Respiratory 18 Rate Blood Pressure 92/56 89/56 Blood Pressure 89/56 [Right] O2 Sat by Pulse 96 Oximetry 04/08/19 04/08/19 07:25 12:24 Temperature 98.3 F Pulse Rate 86 88 Respiratory 20 Rate Blood Pressure 95/56 Blood Pressure [Right] O2 Sat by Pulse 96 Oximetry - Exam Lungs: Normal air movement Uterus: Absent: tenderness FHR: auscultation normal, other (BPP 04/07/2019 8/8) - Labs Labs: Abnormal Labs 03/27/19 03/27/19 03/27/19 01:48 06:10 08:55 RBC Hgb 9.6 L Hct 29.5 L MCV 75 L MCH 24 L RDW [place] % (Auto) Seg Neutrophils % POC Glucose 119 H Magnesium 3.50 H 03/27/19 03/27/19 03/27/19 09:19 14:55 19:57 RBC Hgb Hct MCV MCH RDW [place] % (Auto) Seg Neutrophils % POC Glucose 123 H 125 H Magnesium 2.70 H 03/28/19 03/28/19 03/28/19 05:34 11:21 14:55 RBC Hgb Hct MCV MCH RDW [place] % (Auto) Seg Neutrophils % POC Glucose 118 H 148 H 111 H Magnesium 03/28/19 03/30/19 03/31/19 19:47 16:40 21:51 RBC Hgb 9.5 L Hct 29.2 L MCV 75 L MCH 25 L RDW [place] % (Auto) 8.8 H Seg Neutrophils % 70.3 H POC Glucose 117 H 127 H Magnesium 04/01/19 04/01/19 04/02/19 08:25 17:12 08:08 RBC 3.54 L Hgb 8.6 L 9.2 L Hct 26.4 L 28.3 L MCV 75 L 75 L MCH 24 L 24 L RDW 15.4 H 15.7 H [place] % (Auto) Seg Neutrophils % 70.3 H POC Glucose 111 H Magnesium 04/02/19 04/02/19 04/02/19 12:07 17:16 22:28 RBC Hgb Hct MCV MCH RDW [place] % (Auto) Seg Neutrophils % POC Glucose 126 H 155 H 109 H Magnesium 04/03/19 04/04/19 04/05/19 07:27 08:39 08:00 RBC Hgb 9.0 L 8.8 L 9.8 L Hct 27.7 L 27.3 L 30.2 L MCV 75 L 75 L 75 L MCH 24 L 24 L 25 L RDW 15.7 H 15.7 H 16.0 H [place] % (Auto) Seg Neutrophils % 72.5 H 70.5 H 70.1 H POC Glucose Magnesium 04/05/19 04/05/19 04/06/19 17:26 21:50 10:51 RBC 3.55 L Hgb 8.6 L Hct 26.8 L MCV 75 L MCH 24 L RDW 15.9 H [place] % (Auto) Seg Neutrophils % 73.1 H POC Glucose 118 H 106 H Magnesium 04/06/19 04/07/19 04/07/19 15:55 08:29 16:16 RBC Hgb 8.9 L Hct 27.7 L MCV 75 L MCH 24 L RDW 16.4 H [place] % (Auto) 7.5 H Seg Neutrophils % 71.0 H POC Glucose 129 H 67 L Magnesium 04/08/19 07:53 RBC Hgb 8.8 L Hct 27.4 L MCV 75 L MCH 24 L RDW 16.6 H [place] % (Auto) Seg Neutrophils % POC Glucose Magnesium Laboratory Results - last 24 hr 04/07/19 04/07/19 04/08/19 16:16 22:04 07:53 WBC 7.6 RBC 3.65 Hgb 8.8 L Hct 27.4 L MCV 75 L MCH 24 L MCHC 32 RDW 16.6 H Plt Count 192 POC Glucose 67 L 89 04/08/19 04/08/19 08:47 12:36 WBC RBC Hgb Hct MCV MCH MCHC RDW Plt Count POC Glucose 87 99
[2019-04-09] MEDS: ACETAMINOPHEN 325 MG TAB PO PRN (08:07)
[2019-04-09] MEDS: INSULIN LISPRO 100 UNIT/ML SUB-Q SCH ×2 (08:39→16:14)
[2019-04-09] MEDS: metFORMIN 500 MG TAB PO SCH ×2 (08:39→16:13)
[2019-04-09] MEDS: PRENATAL VIT27-FE FUMARATE-FOLIC ACID VIT TAB PO SCH (11:46)
[2019-04-09] MEDS: LACTATED RINGERS 1,000 ML IV SCH ×2 (11:46→23:09)
[2019-04-09] MEDS ORDERED: NALOXONE 2 MG/2 ML INJ IV PRN (11:57)
[2019-04-09] MEDS ORDERED: ePHEDrine SULFATE 50 MG/1 ML INJ IV PRN (11:57)
[2019-04-09] MEDS ORDERED: fentaNYL-BUPIV 2 MCG/ML-0.125% 200 MCG/100 ML BAG EPIDURAL SCH (12:00)
--- NOTE | 2019-04-09 12:11 | Progress Note ---
Subjective - Subjective Date of service: 04/09/19 Principal diagnosis: IUP @ 33 0/7 weeks, PPROM, GDM Interval history: AM note: transfer of care.Patient seen and examined on AM rounds No complaints PPROM at 33+0/7 no complaints: +ve irregular mild contractions, good movement denies LOF, fevers, chills or abdominal pain Vitals: reviewed. see below FHT 140 baseline, moderate variability, appropriate for gestational age [place]: not alejandro Cervix: deferred A: PPROM P: continue expectant management: patient to get up, shower, may sit in chair and walk around room. US for cervical length serial labs, BPP/TONY deliver for maternal/ indication S/P abx, no s/s chorio Maternal/ well being reassuring overall. [place] MCKNIGHT Vital Signs Temp 97.5 F L 04/09/19 06:00 Pulse 68 04/09/19 10:10 Resp 18 04/09/19 10:10 BP 89/57 04/09/19 10:10 Pulse Ox 97 04/09/19 10:10 Intake & Output 04/08/19 04/09/19 04/09/19 23:59 11:59 23:59 Intake Total 719.525 5030 Balance 959.441 7473 Intake: IV 545.466 4957 Lactated Ringers 1,000 ml 624.477 8420 @ 125 mls/hr IV DIRECT SCHUYLER Rx#:[id number] Other: # Voids Void 1 Patient reports: loss of fluid, movement normal, contractions (no regular contractions. Only occasional cramping. ), no new complaints, no vaginal bleeding Objective - Vital Signs Vital Signs: Vital Signs - 12hr 04/09/19 04/09/19 04/09/19 01:36 01:41 01:46 Temperature Pulse Rate 77 87 100 H Respiratory Rate Blood Pressure Blood Pressure [Right] O2 Sat by Pulse 98 96 96 Oximetry 04/09/19 04/09/19 04/09/19 01:51 01:56 02:01 Temperature Pulse Rate 90 94 H 94 H Respiratory Rate Blood Pressure Blood Pressure [Right] O2 Sat by Pulse 96 97 96 Oximetry 04/09/19 04/09/19 04/09/19 02:06 02:12 02:17 Temperature Pulse Rate 82 86 81 Respiratory Rate Blood Pressure Blood Pressure [Right] O2 Sat by Pulse 96 96 98 Oximetry 04/09/19 04/09/19 04/09/19 02:22 02:27 02:32 Temperature Pulse Rate 86 97 H 85 Respiratory Rate Blood Pressure Blood Pressure [Right] O2 Sat by Pulse 96 97 97 Oximetry 04/09/19 04/09/19 04/09/19 02:37 02:42 06:00 Temperature 97.5 F L Pulse Rate 94 H 94 H Respiratory 16 Rate Blood Pressure Blood Pressure 96/58 [Right] O2 Sat by Pulse 96 98 98 Oximetry 04/09/19 04/09/19 04/09/19 06:11 06:12 10:09 Temperature Pulse Rate 86 86 65 Respiratory Rate Blood Pressure 96/58 89/57 Blood Pressure [Right] O2 Sat by Pulse 98 96 Oximetry 04/09/19 10:10 Temperature Pulse Rate 68 Respiratory 18 Rate Blood Pressure Blood Pressure 89/57 [Right] O2 Sat by Pulse 97 Oximetry - Labs Labs: Abnormal Labs 03/27/19 03/27/19 03/27/19 01:48 06:10 08:55 RBC Hgb 9.6 L Hct 29.5 L MCV 75 L MCH 24 L RDW [place] % (Auto) Seg Neutrophils % POC Glucose 119 H Magnesium 3.50 H 03/27/19 03/27/19 03/27/19 09:19 14:55 19:57 RBC Hgb Hct MCV MCH RDW [place] % (Auto) Seg Neutrophils % POC Glucose 123 H 125 H Magnesium 2.70 H 03/28/19 03/28/19 03/28/19 05:34 11:21 14:55 RBC Hgb Hct MCV MCH RDW [place] % (Auto) Seg Neutrophils % POC Glucose 118 H 148 H 111 H Magnesium 03/28/19 03/30/19 03/31/19 19:47 16:40 21:51 RBC Hgb 9.5 L Hct 29.2 L MCV 75 L MCH 25 L RDW [place] % (Auto) 8.8 H Seg Neutrophils % 70.3 H POC Glucose 117 H 127 H Magnesium 04/01/19 04/01/19 04/02/19 08:25 17:12 08:08 RBC 3.54 L Hgb 8.6 L 9.2 L Hct 26.4 L 28.3 L MCV 75 L 75 L MCH 24 L 24 L RDW 15.4 H 15.7 H [place] % (Auto) Seg Neutrophils % 70.3 H POC Glucose 111 H Magnesium 04/02/19 04/02/19 04/02/19 12:07 17:16 22:28 RBC Hgb Hct MCV MCH RDW [place] % (Auto) Seg Neutrophils % POC Glucose 126 H 155 H 109 H Magnesium 04/03/19 04/04/19 04/05/19 07:27 08:39 08:00 RBC Hgb 9.0 L 8.8 L 9.8 L Hct 27.7 L 27.3 L 30.2 L MCV 75 L 75 L 75 L MCH 24 L 24 L 25 L RDW 15.7 H 15.7 H 16.0 H [place] % (Auto) Seg Neutrophils % 72.5 H 70.5 H 70.1 H POC Glucose Magnesium 04/05/19 04/05/19 04/06/19 17:26 21:50 10:51 RBC 3.55 L Hgb 8.6 L Hct 26.8 L MCV 75 L MCH 24 L RDW 15.9 H [place] % (Auto) Seg Neutrophils % 73.1 H POC Glucose 118 H 106 H Magnesium 04/06/19 04/07/19 04/07/19 15:55 08:29 16:16 RBC Hgb 8.9 L Hct 27.7 L MCV 75 L MCH 24 L RDW 16.4 H [place] % (Auto) 7.5 H Seg Neutrophils % 71.0 H POC Glucose 129 H 67 L Magnesium 04/08/19 04/08/19 04/08/19 07:53 16:43 21:52 RBC Hgb 8.8 L Hct 27.4 L MCV 75 L MCH 24 L RDW 16.6 H [place] % (Auto) Seg Neutrophils % POC Glucose 65 L 109 H Magnesium Laboratory Results - last 24 hr 04/08/19 04/08/19 04/08/19 12:36 16:43 21:52 POC Glucose 99 65 L 109 H 04/09/19 06:20 POC Glucose 101
--- NOTE | 2019-04-09 13:51 | Ultrasound Report ---
ULTRASOUND OB TRANSVAGINAL HISTORY: Evaluate cervical length. TECHNIQUE: Transvaginal ultrasound images. FINDINGS: A single intrauterine is in cephalic position. Heart rate measures 159 bpm. The cervix is c losed and measures 4.7 cm in length. IMPRESSION: The cervix measures 4.7 cm. Signer Name: Efren Godinez Jr, MD Signed: 04/09/2019 1:47 PM Workstation Name: [id number]
[2019-04-09] MEDS: ZOLPIDEM 5 MG TAB PO PRN (23:10)
[2019-04-10] MEDS: PRENATAL VIT27-FE FUMARATE-FOLIC ACID VIT TAB PO SCH (11:12)
--- NOTE | 2019-04-10 12:51 | Progress Note ---
Assessment and Plan A- IUP 33.1 weeks PPROM on 03/27/19 S/P Betamethasone x 2 S/P Antibiotic protocol for PPROM Afebrile, VSS BPP 8/8 on 04/07/19 ( MVP 2.6cm) Occasional contractions adn leaking of fluid, denies vaginal bleeding Adequate glucose levels on current regimen- Metformin, Sliding Scale insulin P- Continue with plan of care for expectant management Monitor for signs of [place] Accuchecks QAC and HS for GDM BPP twice weekly- Sunday and (perform today please). Delivery recommended at 34 weeks for PPROM With additional questions/concerns, please contact [facility] patient registration specialist. Thank you. Subjective - Subjective Date of service: 04/10/19 Principal diagnosis: IUP @ 33 0/7 weeks, PPROM, GDM Patient reports: loss of fluid, movement normal, contractions (Irregular contractions), no new complaints, no vaginal bleeding Objective - Vital Signs Vital Signs: Vital Signs - 12hr 04/10/19 04/10/19 08:30 09:43 Temperature 98 F Pulse Rate 82 84 Respiratory 16 Rate Blood Pressure 90/58 O2 Sat by Pulse 98 Oximetry - Exam Breasts: deferred Cardiovascular: Regular rate, Normal S1, Normal S2 Lungs: Clear to auscultation, Normal air movement Abdomen: Present: normal appearance, soft, other (gravid, nontender) - Labs Labs: Abnormal Labs 03/27/19 03/27/19 03/27/19 01:48 06:10 08:55 RBC Hgb 9.6 L Hct 29.5 L MCV 75 L MCH 24 L RDW [place] % (Auto) Seg Neutrophils % POC Glucose 119 H Magnesium 3.50 H 03/27/19 03/27/19 03/27/19 09:19 14:55 19:57 RBC Hgb Hct MCV MCH RDW [place] % (Auto) Seg Neutrophils % POC Glucose 123 H 125 H Magnesium 2.70 H 03/28/19 03/28/19 03/28/19 05:34 11:21 14:55 RBC Hgb Hct MCV MCH RDW [place] % (Auto) Seg Neutrophils % POC Glucose 118 H 148 H 111 H Magnesium 03/28/19 03/30/19 03/31/19 19:47 16:40 21:51 RBC Hgb 9.5 L Hct 29.2 L MCV 75 L MCH 25 L RDW [place] % (Auto) 8.8 H Seg Neutrophils % 70.3 H POC Glucose 117 H 127 H Magnesium 04/01/19 04/01/19 04/02/19 08:25 17:12 08:08 RBC 3.54 L Hgb 8.6 L 9.2 L Hct 26.4 L 28.3 L MCV 75 L 75 L MCH 24 L 24 L RDW 15.4 H 15.7 H [place] % (Auto) Seg Neutrophils % 70.3 H POC Glucose 111 H Magnesium 04/02/19 04/02/19 04/02/19 12:07 17:16 22:28 RBC Hgb Hct MCV MCH RDW [place] % (Auto) Seg Neutrophils % POC Glucose 126 H 155 H 109 H Magnesium 04/03/19 04/04/19 04/05/19 07:27 08:39 08:00 RBC Hgb 9.0 L 8.8 L 9.8 L Hct 27.7 L 27.3 L 30.2 L MCV 75 L 75 L 75 L MCH 24 L 24 L 25 L RDW 15.7 H 15.7 H 16.0 H [place] % (Auto) Seg Neutrophils % 72.5 H 70.5 H 70.1 H POC Glucose Magnesium 04/05/19 04/05/19 04/06/19 17:26 21:50 10:51 RBC 3.55 L Hgb 8.6 L Hct 26.8 L MCV 75 L MCH 24 L RDW 15.9 H [place] % (Auto) Seg Neutrophils % 73.1 H POC Glucose 118 H 106 H Magnesium 04/06/19 04/07/19 04/07/19 15:55 08:29 16:16 RBC Hgb 8.9 L Hct 27.7 L MCV 75 L MCH 24 L RDW 16.4 H [place] % (Auto) 7.5 H Seg Neutrophils % 71.0 H POC Glucose 129 H 67 L Magnesium 04/08/19 04/08/19 04/08/19 07:53 16:43 21:52 RBC Hgb 8.8 L Hct 27.4 L MCV 75 L MCH 24 L RDW 16.6 H [place] % (Auto) Seg Neutrophils % POC Glucose 65 L 109 H Magnesium Laboratory Results - last 24 hr 04/09/19 04/09/19 04/10/19 16:08 22:52 09:08 POC Glucose 102 94 85
--- NOTE | 2019-04-10 14:31 | Progress Note ---
Assessment and Plan - Patient Problems (1) Gestational diabetes Current Visit: Yes Status: Acute (2) Leg pain, right Current Visit: Yes Status: Acute (3) with 32 completed weeks gestation Current Visit: Yes Status: Acute (4) premature rupture of membranes Onset Date: 03/30/19 Current Visit: Yes Status: Acute Qualifiers: PROM onset of labor timing: onset of labor more than 24 hours following rup ture Qualified Code(s): O42.119 - premature rupture of membranes, onset of labor more than 24 hours following rupture, unspecified trimester Plan to address problem: Recommendations by MFM 1. BPP ordered today 04/10/19 2. BPP Twice per week while undelivered 3. Antibiotics per protocol for PPROM - Done 4. Steroids Done 5. Delivery at 34 weeks 6. NICU consult 7. Iron BID 8. 2200 ADA diet 9. Accuchecks fastings and 2 hour PP's 10. Continue Metformin 500 11. 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 Also has GDM 39 y/o SF MARGE 05/28/19 Now EGW at 33+1 weeks Denies fever chills abd pain - Occ contractions ------- Recent Diag with GDM - On Metformin 500 q day dinner No complaints, good movement. Patient reports: loss of fluid, movement normal, contractions (Irregular contractions), no new complaints, no vaginal bleeding Objective - Vital Signs Vital Signs: Vital Signs - 12hr 04/10/19 04/10/19 08:30 09:43 Temperature 98 F Pulse Rate 82 84 Respiratory 16 Rate Blood Pressure 90/58 O2 Sat by Pulse 98 Oximetry - Exam Lungs: Normal air movement Uterus: Present: normal. Absent: tenderness FHR: category 1 - Labs Labs: Abnormal Labs 03/27/19 03/27/19 03/27/19 01:48 06:10 08:55 RBC Hgb 9.6 L Hct 29.5 L MCV 75 L MCH 24 L RDW [place] % (Auto) Seg Neutrophils % POC Glucose 119 H Magnesium 3.50 H 03/27/19 03/27/19 03/27/19 09:19 14:55 19:57 RBC Hgb Hct MCV MCH RDW [place] % (Auto) Seg Neutrophils % POC Glucose 123 H 125 H Magnesium 2.70 H 03/28/19 03/28/19 03/28/19 05:34 11:21 14:55 RBC Hgb Hct MCV MCH RDW [place] % (Auto) Seg Neutrophils % POC Glucose 118 H 148 H 111 H Magnesium 03/28/19 03/30/19 03/31/19 19:47 16:40 21:51 RBC Hgb 9.5 L Hct 29.2 L MCV 75 L MCH 25 L RDW [place] % (Auto) 8.8 H Seg Neutrophils % 70.3 H POC Glucose 117 H 127 H Magnesium 04/01/19 04/01/19 04/02/19 08:25 17:12 08:08 RBC 3.54 L Hgb 8.6 L 9.2 L Hct 26.4 L 28.3 L MCV 75 L 75 L MCH 24 L 24 L RDW 15.4 H 15.7 H [place] % (Auto) Seg Neutrophils % 70.3 H POC Glucose 111 H Magnesium 04/02/19 04/02/19 04/02/19 12:07 17:16 22:28 RBC Hgb Hct MCV MCH RDW [place] % (Auto) Seg Neutrophils % POC Glucose 126 H 155 H 109 H Magnesium 04/03/19 04/04/19 04/05/19 07:27 08:39 08:00 RBC Hgb 9.0 L 8.8 L 9.8 L Hct 27.7 L 27.3 L 30.2 L MCV 75 L 75 L 75 L MCH 24 L 24 L 25 L RDW 15.7 H 15.7 H 16.0 H [place] % (Auto) Seg Neutrophils % 72.5 H 70.5 H 70.1 H POC Glucose Magnesium 04/05/19 04/05/19 04/06/19 17:26 21:50 10:51 RBC 3.55 L Hgb 8.6 L Hct 26.8 L MCV 75 L MCH 24 L RDW 15.9 H [place] % (Auto) Seg Neutrophils % 73.1 H POC Glucose 118 H 106 H Magnesium 04/06/19 04/07/19 04/07/19 15:55 08:29 16:16 RBC Hgb 8.9 L Hct 27.7 L MCV 75 L MCH 24 L RDW 16.4 H [place] % (Auto) 7.5 H Seg Neutrophils % 71.0 H POC Glucose 129 H 67 L Magnesium 04/08/19 04/08/19 04/08/19 07:53 16:43 21:52 RBC Hgb 8.8 L Hct 27.4 L MCV 75 L MCH 24 L RDW 16.6 H [place] % (Auto) Seg Neutrophils % POC Glucose 65 L 109 H Magnesium Laboratory Results - last 24 hr 04/09/19 04/09/19 04/10/19 16:08 22:52 09:08 POC Glucose 102 94 85
[2019-04-10 16:25] LABS: Basophils % (Auto) 0.6 % (0.0-1.8); Eosinophils # (Auto) 0.1 K/mm3 (0.0-0.4); Eosinophils % (Auto) 0.8 % (0.0-4.3); Hematocrit 30.6 % (30.3-42.9); Hemoglobin 9.8 gm/dl (10.1-14.3); Lymphocytes # (Auto) 1.3 K/mm3 (1.2-5.4); Lymphocytes % (Auto) 19.7 % (13.4-35.0); Mean Corpuscular HGB Conc 32 % (30-34); Mean Corpuscular Volume 76 fl (79-97); Monocytes # (Auto) 0.4 K/mm3 (0.0-0.8); Platelet Count 195 K/mm3 (140-440); Red Blood Count 4.04 M/mm3 (3.65-5.03); Red Cell Distribution Width 16.5 % (13.2-15.2)
[2019-04-10 16:26] LABS: Alanine Aminotransferase 8 units/L (7-56); Albumin 3.3 g/dL (3.9-5); BUN/Creatinine Ratio 13; Blood Urea Nitrogen 4 mg/dL (7-17); Calcium 8.9 mg/dL (8.4-10.2); Hemolysis Index 3
--- NOTE | 2019-04-10 16:27 | Ultrasound Report ---
Biophysical profile INDICATION: Premature rupture of membranes COMPARISON: 04/07/2019 FINDINGS: breathing movement: 2/2 movement: 2/2 posture and tone: 2/2 Qualitative amniotic fluid volume: 2/2 IMPRESSION: Total score for biophysical profile is 8/8 heart rate is 137 bpm Signer Name: Nj Carlson MD Signed: 04/10/2019 4:23 PM Workstation Name: [id number]
[2019-04-10] MEDS: metFORMIN 500 MG TAB PO SCH (17:05)
[2019-04-10] MEDS ORDERED: POTASSIUM CHLORIDE ER 20 MEQ TAB PO ONE (20:00)
[2019-04-11] MEDS: metFORMIN 500 MG TAB PO SCH ×3 (00:27→17:38)
[2019-04-11] MEDS: ZOLPIDEM 5 MG TAB PO PRN (00:27)
[2019-04-11] MEDS: PRENATAL VIT27-FE FUMARATE-FOLIC ACID VIT TAB PO SCH (09:36)
--- NOTE | 2019-04-11 11:57 | Progress Note ---
Assessment and Plan - Patient Problems (1) premature rupture of membranes Onset Date: 03/30/19 Current Visit: Yes Status: Acute Qualifiers: PROM onset of labor timing: onset of labor more than 24 hours following ru pture Qualified Code(s): O42.119 - premature rupture of membranes, onset of labor more than 24 hours following rupture, unspecified trimester Plan to address problem: Cont expectant care with delivery at 34 weeks. BPP yesterday was 01/02 (2) Gestational diabetes Current Visit: Yes Status: Acute Plan to address problem: Cont Glucophage. Dosing got off schedule yesterday but BGs are normalized. Cont current regimen. (3) Hypokalemia Current Visit: Yes Status: Acute Plan to address problem: PT had a K of 3.4 yesterday. 20 meq K-dur x 1 po given last night. Check BMP with next time labs are ordered. Subjective - Subjective Date of service: 04/11/19 Principal diagnosis: IUP @ 33 0/7 weeks, PPROM, GDM Interval history: Pt doing well. No new complaints. Good FM. Good BG control. No VB. Patient reports: movement normal, other (PT doing well. No complaints. No complaint of ctxs. PT eating well. ), no new complaints, no vaginal bleeding, no contractions Objective - Vital Signs Vital Signs: Vital Signs - 12hr 04/11/19 04/11/19 04/11/19 00:00 00:30 02:00 Temperature 97.9 F 97.9 F Pulse Rate 90 Respiratory Rate Blood Pressure 94/61 04/11/19 04/11/19 04/11/19 04:00 04:03 10:11 Temperature 98.4 F Pulse Rate 88 80 Respiratory 15 Rate Blood Pressure 88/51 85/50 04/11/19 11:27 Temperature 98.1 F Pulse Rate Respiratory 18 Rate Blood Pressure - Exam Breasts: deferred Abdomen: Present: soft. Absent: tenderness Uterus: Absent: tenderness FHR: category 1 FHR comments: 130s-140s, mod LTV Uterine Contraction Pattern: Absent - Labs Labs: Abnormal Labs 03/27/19 03/27/19 03/27/19 01:48 06:10 08:55 RBC Hgb 9.6 L Hct 29.5 L MCV 75 L MCH 24 L RDW [place] % (Auto) Seg Neutrophils % Sodium Potassium Carbon Dioxide BUN Creatinine Glucose POC Glucose 119 H Magnesium 3.50 H Alkaline Phosphatase Albumin 03/27/19 03/27/19 03/27/19 09:19 14:55 19:57 RBC Hgb Hct MCV MCH RDW [place] % (Auto) Seg Neutrophils % Sodium Potassium Carbon Dioxide BUN Creatinine Glucose POC Glucose 123 H 125 H Magnesium 2.70 H Alkaline Phosphatase Albumin 03/28/19 03/28/19 03/28/19 05:34 11:21 14:55 RBC Hgb Hct MCV MCH RDW [place] % (Auto) Seg Neutrophils % Sodium Potassium Carbon Dioxide BUN Creatinine Glucose POC Glucose 118 H 148 H 111 H Magnesium Alkaline Phosphatase Albumin 03/28/19 03/30/19 03/31/19 19:47 16:40 21:51 RBC Hgb 9.5 L Hct 29.2 L MCV 75 L MCH 25 L RDW [place] % (Auto) 8.8 H Seg Neutrophils % 70.3 H Sodium Potassium Carbon Dioxide BUN Creatinine Glucose POC Glucose 117 H 127 H Magnesium Alkaline Phosphatase Albumin 04/01/19 04/01/19 04/02/19 08:25 17:12 08:08 RBC 3.54 L Hgb 8.6 L 9.2 L Hct 26.4 L 28.3 L MCV 75 L 75 L MCH 24 L 24 L RDW 15.4 H 15.7 H [place] % (Auto) Seg Neutrophils % 70.3 H Sodium Potassium Carbon Dioxide BUN Creatinine Glucose POC Glucose 111 H Magnesium Alkaline Phosphatase Albumin 04/02/19 04/02/19 04/02/19 12:07 17:16 22:28 RBC Hgb Hct MCV MCH RDW [place] % (Auto) Seg Neutrophils % Sodium Potassium Carbon Dioxide BUN Creatinine Glucose POC Glucose 126 H 155 H 109 H Magnesium Alkaline Phosphatase Albumin 04/03/19 04/04/19 04/05/19 07:27 08:39 08:00 RBC Hgb 9.0 L 8.8 L 9.8 L Hct 27.7 L 27.3 L 30.2 L MCV 75 L 75 L 75 L MCH 24 L 24 L 25 L RDW 15.7 H 15.7 H 16.0 H [place] % (Auto) Seg Neutrophils % 72.5 H 70.5 H 70.1 H Sodium Potassium Carbon Dioxide BUN Creatinine Glucose POC Glucose Magnesium Alkaline Phosphatase Albumin 04/05/19 04/05/19 04/06/19 17:26 21:50 10:51 RBC 3.55 L Hgb 8.6 L Hct 26.8 L MCV 75 L MCH 24 L RDW 15.9 H [place] % (Auto) Seg Neutrophils % 73.1 H Sodium Potassium Carbon Dioxide BUN Creatinine Glucose POC Glucose 118 H 106 H Magnesium Alkaline Phosphatase Albumin 04/06/19 04/07/19 04/07/19 15:55 08:29 16:16 RBC Hgb 8.9 L Hct 27.7 L MCV 75 L MCH 24 L RDW 16.4 H [place] % (Auto) 7.5 H Seg Neutrophils % 71.0 H Sodium Potassium Carbon Dioxide BUN Creatinine Glucose POC Glucose 129 H 67 L Magnesium Alkaline Phosphatase Albumin 04/08/19 04/08/19 04/08/19 07:53 16:43 21:52 RBC Hgb 8.8 L Hct 27.4 L MCV 75 L MCH 24 L RDW 16.6 H [place] % (Auto) Seg Neutrophils % Sodium Potassium Carbon Dioxide BUN Creatinine Glucose POC Glucose 65 L 109 H Magnesium Alkaline Phosphatase Albumin 04/10/19 04/10/19 04/10/19 15:44 15:44 17:06 RBC Hgb 9.8 L Hct MCV 76 L MCH 24 L RDW 16.5 H [place] % (Auto) Seg Neutrophils % 72.9 H Sodium 135 L Potassium 3.4 L Carbon Dioxide 19 L BUN 4 L Creatinine 0.3 L Glucose 130 H POC Glucose 142 H Magnesium Alkaline Phosphatase 133 H Albumin 3.3 L Laboratory Results - last 24 hr 04/10/19 04/10/19 04/10/19 15:44 15:44 17:06 WBC 6.7 RBC 4.04 Hgb 9.8 L Hct 30.6 MCV 76 L MCH 24 L MCHC 32 RDW 16.5 H Plt Count 195 Lymph % (Auto) 19.7 [place] % (Auto) 6.0 Eos % (Auto) 0.8 Baso % (Auto) 0.6 Lymph # 1.3 [place] # 0.4 Eos # 0.1 Baso # 0.0 Seg Neutrophils % 72.9 H Seg Neutrophils # 4.9 Sodium 135 L Potassium 3.4 L Chloride 100.9 Carbon Dioxide 19 L Anion Gap 19 BUN 4 L Creatinine 0.3 L Estimated GFR > 60 BUN/Creatinine Ratio 13 Glucose 130 H POC Glucose 142 H Calcium 8.9 Total Bilirubin 0.50 AST 10 ALT 8 Alkaline Phosphatase 133 H Total Protein 6.4 Albumin 3.3 L Albumin/Globulin Ratio 1.1 04/10/19 04/11/19 04/11/19 20:55 06:29 11:55 WBC RBC Hgb Hct MCV MCH MCHC RDW Plt Count Lymph % (Auto) [place] % (Auto) Eos % (Auto) Baso % (Auto) Lymph # [place] # Eos # Baso # Seg Neutrophils % Seg Neutrophils # Sodium Potassium Chloride Carbon Dioxide Anion Gap BUN Creatinine Estimated GFR BUN/Creatinine Ratio Glucose POC Glucose 90 84 76 Calcium Total Bilirubin AST ALT Alkaline Phosphatase Total Protein Albumin Albumin/Globulin Ratio
[2019-04-11] MEDS: LACTATED RINGERS 1,000 ML IV SCH (17:43)
[2019-04-11] MEDS: ACETAMINOPHEN 325 MG TAB PO PRN (23:21)
[2019-04-12] MEDS: INSULIN LISPRO 100 UNIT/ML SUB-Q SCH ×2 (00:20→22:11)
[2019-04-12] MEDS: ZOLPIDEM 5 MG TAB PO PRN ×2 (01:41→21:41)
[2019-04-12] MEDS: LACTATED RINGERS 1,000 ML IV SCH ×3 (01:41→18:50)
[2019-04-12] MEDS: PRENATAL VIT27-FE FUMARATE-FOLIC ACID VIT TAB PO SCH ×2 (09:28→09:29)
[2019-04-12] MEDS: metFORMIN 500 MG TAB PO SCH ×2 (09:31→18:50)
[2019-04-12 10:34] LABS: Basophils % (Auto) 0.6 % (0.0-1.8); Eosinophils # (Auto) 0.1 K/mm3 (0.0-0.4); Eosinophils % (Auto) 0.9 % (0.0-4.3); Hemoglobin 8.7 gm/dl (10.1-14.3); Lymphocytes # (Auto) 1.3 K/mm3 (1.2-5.4); Lymphocytes % (Auto) 21.5 % (13.4-35.0); Mean Corpuscular HGB Conc 32 % (30-34); Mean Corpuscular Volume 75 fl (79-97); Monocytes # (Auto) 0.4 K/mm3 (0.0-0.8); Monocytes % (Auto) 6.5 % (0.0-7.3); Platelet Count 176 K/mm3 (140-440); Red Blood Count 3.59 M/mm3 (3.65-5.03); Red Cell Distribution Width 16.6 % (13.2-15.2)
[2019-04-12 10:45] LABS: Alanine Aminotransferase 8 units/L (7-56); Albumin 3.2 g/dL (3.9-5); BUN/Creatinine Ratio 25; Blood Urea Nitrogen 5 mg/dL (7-17); Calcium 8.8 mg/dL (8.4-10.2); Hemolysis Index 4
--- NOTE | 2019-04-12 11:00 | Progress Note ---
Subjective - Subjective Date of service: 04/12/19 Principal diagnosis: IUP @ 33 3/7 weeks, PPROM, GDM Interval history: AM note: transfer of care. Vitals, Labs and Imaging reviewed. No complaints PPROM at 33+3/7 no complaints: +ve irregular mild contractions, good movement denies LOF, fevers, chills or abdominal pain Vitals: reviewed. see below FHT 140 baseline, moderate variability, appropriate for gestational age [place]: not alejandro Cervix: deferred A: PPROM P: continue expectant management: patient encouraged to get upout of bed,ambulate, shower, may sit in chair and walk around room. Repeat CBC,CMP-may require K replacement US for cervical length shows cervix ~4cm serial labs, BPP/TONY deliver for maternal/ indication S/P abx, no s/s chorio Maternal/ well being reassuring overall. [place] MCKNIGHT Vital Signs Temp 97.6 F 04/12/19 08:40 Pulse 78 04/12/19 09:30 Resp 18 04/12/19 03:46 BP 95/52 04/12/19 09:30 Pulse Ox 98 04/11/19 20:00 Intake & Output 04/11/19 04/11/19 04/12/19 11:59 23:59 11:59 Intake Total 1240 1968.750 Balance 1240 1968.750 Intake: IV 1000 1968.750 Lactated Ringers 1,000 ml 1000 1968.750 @ 125 mls/hr IV DIRECT SCHUYLER Rx#:[id number] Oral 240 Other: Total, Intake Amount 240 # Voids Void 1 1 Patient reports: movement normal, other (PT doing well. No complaints. No complaint of ctxs. PT eating well. ), no new complaints, no vaginal bleeding, no contractions Objective - Vital Signs Vital Signs: Vital Signs - 12hr 04/11/19 04/11/19 04/12/19 23:14 23:15 03:46 Temperature 98.0 F 98.0 F Pulse Rate 90 90 81 Respiratory 20 18 Rate Blood Pressure 100/60 Blood Pressure 100/60 89/51 [Right] 04/12/19 04/12/19 04/12/19 03:48 08:40 09:30 Temperature 97.6 F Pulse Rate 81 78 Respiratory Rate Blood Pressure 89/51 95/52 Blood Pressure [Right] - Labs Labs: Abnormal Labs 03/27/19 03/27/19 03/27/19 01:48 06:10 08:55 RBC Hgb 9.6 L Hct 29.5 L MCV 75 L MCH 24 L RDW [place] % (Auto) Seg Neutrophils % Sodium Potassium Carbon Dioxide BUN Creatinine Glucose POC Glucose 119 H Magnesium 3.50 H Alkaline Phosphatase Total Protein Albumin 03/27/19 03/27/19 03/27/19 09:19 14:55 19:57 RBC Hgb Hct MCV MCH RDW [place] % (Auto) Seg Neutrophils % Sodium Potassium Carbon Dioxide BUN Creatinine Glucose POC Glucose 123 H 125 H Magnesium 2.70 H Alkaline Phosphatase Total Protein Albumin 03/28/19 03/28/19 03/28/19 05:34 11:21 14:55 RBC Hgb Hct MCV MCH RDW [place] % (Auto) Seg Neutrophils % Sodium Potassium Carbon Dioxide BUN Creatinine Glucose POC Glucose 118 H 148 H 111 H Magnesium Alkaline Phosphatase Total Protein Albumin 03/28/19 03/30/19 03/31/19 19:47 16:40 21:51 RBC Hgb 9.5 L Hct 29.2 L MCV 75 L MCH 25 L RDW [place] % (Auto) 8.8 H Seg Neutrophils % 70.3 H Sodium Potassium Carbon Dioxide BUN Creatinine Glucose POC Glucose 117 H 127 H Magnesium Alkaline Phosphatase Total Protein Albumin 04/01/19 04/01/19 04/02/19 08:25 17:12 08:08 RBC 3.54 L Hgb 8.6 L 9.2 L Hct 26.4 L 28.3 L MCV 75 L 75 L MCH 24 L 24 L RDW 15.4 H 15.7 H [place] % (Auto) Seg Neutrophils % 70.3 H Sodium Potassium Carbon Dioxide BUN Creatinine Glucose POC Glucose 111 H Magnesium Alkaline Phosphatase Total Protein Albumin 04/02/19 04/02/19 04/02/19 12:07 17:16 22:28 RBC Hgb Hct MCV MCH RDW [place] % (Auto) Seg Neutrophils % Sodium Potassium Carbon Dioxide BUN Creatinine Glucose POC Glucose 126 H 155 H 109 H Magnesium Alkaline Phosphatase Total Protein Albumin 04/03/19 04/04/19 04/05/19 07:27 08:39 08:00 RBC Hgb 9.0 L 8.8 L 9.8 L Hct 27.7 L 27.3 L 30.2 L MCV 75 L 75 L 75 L MCH 24 L 24 L 25 L RDW 15.7 H 15.7 H 16.0 H [place] % (Auto) Seg Neutrophils % 72.5 H 70.5 H 70.1 H Sodium Potassium Carbon Dioxide BUN Creatinine Glucose POC Glucose Magnesium Alkaline Phosphatase Total Protein Albumin 04/05/19 04/05/19 04/06/19 17:26 21:50 10:51 RBC 3.55 L Hgb 8.6 L Hct 26.8 L MCV 75 L MCH 24 L RDW 15.9 H [place] % (Auto) Seg Neutrophils % 73.1 H Sodium Potassium Carbon Dioxide BUN Creatinine Glucose POC Glucose 118 H 106 H Magnesium Alkaline Phosphatase Total Protein Albumin 04/06/19 04/07/19 04/07/19 15:55 08:29 16:16 RBC Hgb 8.9 L Hct 27.7 L MCV 75 L MCH 24 L RDW 16.4 H [place] % (Auto) 7.5 H Seg Neutrophils % 71.0 H Sodium Potassium Carbon Dioxide BUN Creatinine Glucose POC Glucose 129 H 67 L Magnesium Alkaline Phosphatase Total Protein Albumin 04/08/19 04/08/19 04/08/19 07:53 16:43 21:52 RBC Hgb 8.8 L Hct 27.4 L MCV 75 L MCH 24 L RDW 16.6 H [place] % (Auto) Seg Neutrophils % Sodium Potassium Carbon Dioxide BUN Creatinine Glucose POC Glucose 65 L 109 H Magnesium Alkaline Phosphatase Total Protein Albumin 04/10/19 04/10/19 04/10/19 15:44 15:44 17:06 RBC Hgb 9.8 L Hct MCV 76 L MCH 24 L RDW 16.5 H [place] % (Auto) Seg Neutrophils % 72.9 H Sodium 135 L Potassium 3.4 L Carbon Dioxide 19 L BUN 4 L Creatinine 0.3 L Glucose 130 H POC Glucose 142 H Magnesium Alkaline Phosphatase 133 H Total Protein Albumin 3.3 L 04/12/19 04/12/19 10:03 10:03 RBC 3.59 L Hgb 8.7 L Hct 27.0 L MCV 75 L MCH 24 L RDW 16.6 H [place] % (Auto) Seg Neutrophils % 70.5 H Sodium 136 L Potassium Carbon Dioxide 20 L BUN 5 L Creatinine 0.2 L Glucose POC Glucose Magnesium Alkaline Phosphatase Total Protein 6.1 L Albumin 3.2 L Laboratory Results - last 24 hr 04/11/19 04/11/19 04/12/19 11:55 22:07 07:44 WBC RBC Hgb Hct MCV MCH MCHC RDW Plt Count Lymph % (Auto) [place] % (Auto) Eos % (Auto) Baso % (Auto) Lymph # [place] # Eos # Baso # Seg Neutrophils % Seg Neutrophils # Sodium Potassium Chloride Carbon Dioxide Anion Gap BUN Creatinine Estimated GFR BUN/Creatinine Ratio Glucose POC Glucose 76 83 83 Calcium Total Bilirubin AST ALT Alkaline Phosphatase Total Protein Albumin Albumin/Globulin Ratio 04/12/19 04/12/19 10:03 10:03 WBC 5.9 RBC 3.59 L Hgb 8.7 L Hct 27.0 L MCV 75 L MCH 24 L MCHC 32 RDW 16.6 H Plt Count 176 Lymph % (Auto) 21.5 [place] % (Auto) 6.5 Eos % (Auto) 0.9 Baso % (Auto) 0.6 Lymph # 1.3 [place] # 0.4 Eos # 0.1 Baso # 0.0 Seg Neutrophils % 70.5 H Seg Neutrophils # 4.1 Sodium 136 L Potassium 3.9 Chloride 102.7 Carbon Dioxide 20 L Anion Gap 17 BUN 5 L Creatinine 0.2 L Estimated GFR > 60 BUN/Creatinine Ratio 25 Glucose 86 POC Glucose Calcium 8.8 Total Bilirubin 0.50 AST 12 ALT 8 Alkaline Phosphatase 128 Total Protein 6.1 L Albumin 3.2 L Albumin/Globulin Ratio 1.1
--- NOTE | 2019-04-12 20:54 | Progress Note ---
Subjective - Subjective Date of service: 04/12/19 Principal diagnosis: IUP @ 33 3/7 weeks, PPROM, GDM Interval history: PM note: Patient seen and examined on PM rounds No complaints PPROM at 33+3/7 no complaints: +ve irregular mild contractions, good movement denies LOF, fevers, chills or abdominal pain Vitals: reviewed. see below ABD: soft, NO , no rebound or guarding FHT [id number] baseline, moderate variability, appropriate for gestational age [place]: not alejandro Cervix: deferred A: PPROM P: continue expectant management: patient encouraged to get upout of bed,ambulate, shower, may sit in chair and walk around room. K+ WNL, encourage adequate PO US for cervical length shows cervix ~4cm serial labs, BPP/TONY deliver for maternal/ indication S/P abx, no s/s chorio Maternal/ well being reassuring overall. [place] MCKNIGHT Vital Signs Temp 98.2 F 04/12/19 19:07 Pulse 86 04/12/19 20:04 Resp 18 04/12/19 03:46 BP 92/53 04/12/19 20:03 Pulse Ox 96 04/12/19 20:04 Intake & Output 04/11/19 04/12/19 04/12/19 23:59 11:59 23:59 Intake Total 1240 8716.022 3346 Balance 1240 7754.135 2027 Intake: IV 1000 8476.608 8782 Lactated Ringers 1,000 ml 1000 1184.624 6489 @ 125 mls/hr IV DIRECT [facility]ER Rx#:[id number] Oral 240 Other: Total, Intake Amount 240 # Voids Void 1 1 Patient reports: movement normal, other (PT doing well. No complaints. No complaint of ctxs. PT eating well. ), no new complaints, no vaginal bleeding, no contractions Objective - Vital Signs Vital Signs: Vital Signs - 12hr 04/12/19 04/12/19 04/12/19 09:30 11:44 14:05 Temperature 97.7 F 97.4 F L Pulse Rate 78 Blood Pressure 95/52 O2 Sat by Pulse Oximetry 04/12/19 04/12/19 04/12/19 16:00 16:06 19:07 Temperature 97.8 F 98.2 F Pulse Rate 90 Blood Pressure 90/55 O2 Sat by Pulse Oximetry 04/12/19 04/12/19 20:03 20:04 Temperature Pulse Rate 89 86 Blood Pressure 92/53 O2 Sat by Pulse 96 Oximetry - Labs Labs: Abnormal Labs 03/27/19 03/27/19 03/27/19 01:48 06:10 08:55 RBC Hgb 9.6 L Hct 29.5 L MCV 75 L MCH 24 L RDW [place] % (Auto) Seg Neutrophils % Sodium Potassium Carbon Dioxide BUN Creatinine Glucose POC Glucose 119 H Magnesium 3.50 H Alkaline Phosphatase Total Protein Albumin 03/27/19 03/27/19 03/27/19 09:19 14:55 19:57 RBC Hgb Hct MCV MCH RDW [place] % (Auto) Seg Neutrophils % Sodium Potassium Carbon Dioxide BUN Creatinine Glucose POC Glucose 123 H 125 H Magnesium 2.70 H Alkaline Phosphatase Total Protein Albumin 03/28/19 03/28/19 03/28/19 05:34 11:21 14:55 RBC Hgb Hct MCV MCH RDW [place] % (Auto) Seg Neutrophils % Sodium Potassium Carbon Dioxide BUN Creatinine Glucose POC Glucose 118 H 148 H 111 H Magnesium Alkaline Phosphatase Total Protein Albumin 03/28/19 03/30/19 03/31/19 19:47 16:40 21:51 RBC Hgb 9.5 L Hct 29.2 L MCV 75 L MCH 25 L RDW [place] % (Auto) 8.8 H Seg Neutrophils % 70.3 H Sodium Potassium Carbon Dioxide BUN Creatinine Glucose POC Glucose 117 H 127 H Magnesium Alkaline Phosphatase Total Protein Albumin 04/01/19 04/01/19 04/02/19 08:25 17:12 08:08 RBC 3.54 L Hgb 8.6 L 9.2 L Hct 26.4 L 28.3 L MCV 75 L 75 L MCH 24 L 24 L RDW 15.4 H 15.7 H [place] % (Auto) Seg Neutrophils % 70.3 H Sodium Potassium Carbon Dioxide BUN Creatinine Glucose POC Glucose 111 H Magnesium Alkaline Phosphatase Total Protein Albumin 04/02/19 04/02/19 04/02/19 12:07 17:16 22:28 RBC Hgb Hct MCV MCH RDW [place] % (Auto) Seg Neutrophils % Sodium Potassium Carbon Dioxide BUN Creatinine Glucose POC Glucose 126 H 155 H 109 H Magnesium Alkaline Phosphatase Total Protein Albumin 04/03/19 04/04/19 04/05/19 07:27 08:39 08:00 RBC Hgb 9.0 L 8.8 L 9.8 L Hct 27.7 L 27.3 L 30.2 L MCV 75 L 75 L 75 L MCH 24 L 24 L 25 L RDW 15.7 H 15.7 H 16.0 H [place] % (Auto) Seg Neutrophils % 72.5 H 70.5 H 70.1 H Sodium Potassium Carbon Dioxide BUN Creatinine Glucose POC Glucose Magnesium Alkaline Phosphatase Total Protein Albumin 04/05/19 04/05/19 04/06/19 17:26 21:50 10:51 RBC 3.55 L Hgb 8.6 L Hct 26.8 L MCV 75 L MCH 24 L RDW 15.9 H [place] % (Auto) Seg Neutrophils % 73.1 H Sodium Potassium Carbon Dioxide BUN Creatinine Glucose POC Glucose 118 H 106 H Magnesium Alkaline Phosphatase Total Protein Albumin 04/06/19 04/07/19 04/07/19 15:55 08:29 16:16 RBC Hgb 8.9 L Hct 27.7 L MCV 75 L MCH 24 L RDW 16.4 H [place] % (Auto) 7.5 H Seg Neutrophils % 71.0 H Sodium Potassium Carbon Dioxide BUN Creatinine Glucose POC Glucose 129 H 67 L Magnesium Alkaline Phosphatase Total Protein Albumin 04/08/19 04/08/19 04/08/19 07:53 16:43 21:52 RBC Hgb 8.8 L Hct 27.4 L MCV 75 L MCH 24 L RDW 16.6 H [place] % (Auto) Seg Neutrophils % Sodium Potassium Carbon Dioxide BUN Creatinine Glucose POC Glucose 65 L 109 H Magnesium Alkaline Phosphatase Total Protein Albumin 04/10/19 04/10/19 04/10/19 15:44 15:44 17:06 RBC Hgb 9.8 L Hct MCV 76 L MCH 24 L RDW 16.5 H [place] % (Auto) Seg Neutrophils % 72.9 H Sodium 135 L Potassium 3.4 L Carbon Dioxide 19 L BUN 4 L Creatinine 0.3 L Glucose 130 H POC Glucose 142 H Magnesium Alkaline Phosphatase 133 H Total Protein Albumin 3.3 L 04/12/19 04/12/19 10:03 10:03 RBC 3.59 L Hgb 8.7 L Hct 27.0 L MCV 75 L MCH 24 L RDW 16.6 H [place] % (Auto) Seg Neutrophils % 70.5 H Sodium 136 L Potassium Carbon Dioxide 20 L BUN 5 L Creatinine 0.2 L Glucose POC Glucose Magnesium Alkaline Phosphatase Total Protein 6.1 L Albumin 3.2 L Laboratory Results - last 24 hr 04/11/19 04/12/19 04/12/19 22:07 07:44 10:03 WBC 5.9 RBC 3.59 L Hgb 8.7 L Hct 27.0 L MCV 75 L MCH 24 L MCHC 32 RDW 16.6 H Plt Count 176 Lymph % (Auto) 21.5 [place] % (Auto) 6.5 Eos % (Auto) 0.9 Baso % (Auto) 0.6 Lymph # 1.3 [place] # 0.4 Eos # 0.1 Baso # 0.0 Seg Neutrophils % 70.5 H Seg Neutrophils # 4.1 Sodium Potassium Chloride Carbon Dioxide Anion Gap BUN Creatinine Estimated GFR BUN/Creatinine Ratio Glucose POC Glucose 83 83 Calcium Total Bilirubin AST ALT Alkaline Phosphatase Total Protein Albumin Albumin/Globulin Ratio 04/12/19 10:03 WBC RBC Hgb Hct MCV MCH MCHC RDW Plt Count Lymph % (Auto) [place] % (Auto) Eos % (Auto) Baso % (Auto) Lymph # [place] # Eos # Baso # Seg Neutrophils % Seg Neutrophils # Sodium 136 L Potassium 3.9 Chloride 102.7 Carbon Dioxide 20 L Anion Gap 17 BUN 5 L Creatinine 0.2 L Estimated GFR > 60 BUN/Creatinine Ratio 25 Glucose 86 POC Glucose Calcium 8.8 Total Bilirubin 0.50 AST 12 ALT 8 Alkaline Phosphatase 128 Total Protein 6.1 L Albumin 3.2 L Albumin/Globulin Ratio 1.1
[2019-04-13] MEDS: ACETAMINOPHEN 325 MG TAB PO PRN (01:32)
[2019-04-13] MEDS: LACTATED RINGERS 1,000 ML IV SCH (10:36)
[2019-04-13] MEDS: PRENATAL VIT27-FE FUMARATE-FOLIC ACID VIT TAB PO SCH (10:36)
[2019-04-13] MEDS: metFORMIN 500 MG TAB PO SCH ×2 (10:36→16:38)
--- NOTE | 2019-04-13 12:03 | Progress Note ---
Subjective - Subjective Date of service: 04/13/19 Principal diagnosis: IUP @ 33 4/7 weeks, PPROM, GDM Interval history: AM note: Patient seen and examined on AM rounds No complaints PPROM at 33+4/7 no complaints: +ve irregular mild contractions, good movement denies LOF, fevers, chills or abdominal pain Vitals: reviewed. see below ABD: soft, NT , no rebound or guarding FHT 135-140 baseline, moderate variability, appropriate for gestational age [place]: irregular Cervix: deferred A: PPROM P: continue expectant management: patient encouraged to get up out of bed,ambulate, shower, may sit in chair and walk around room. K+ WNL, encourage adequate PO US for cervical length shows cervix ~4cm serial labs, BPP/TONY deliver for maternal/ indication S/P abx, no s/s chorio FOB/Nursing staff in room for exam. Maternal/ well being reassuring overall. [place] MCKNIGHT Vital Signs Temp 97.5 F L 04/13/19 10:39 Pulse 80 04/13/19 11:59 Resp 18 04/12/19 20:05 BP 98/61 04/13/19 11:59 Pulse Ox 96 04/12/19 20:04 Intake & Output 04/12/19 04/13/19 04/13/19 23:59 11:59 23:59 Intake Total 1000 1000 Balance 1000 1000 Intake: IV 1000 1000 Lactated Ringers 1,000 ml 1000 1000 @ 125 mls/hr IV DIRECT [facility] Rx#:[id number] Patient reports: movement normal, other (PT doing well. No complaints. No complaint of ctxs. PT eating well. ), no new complaints, no vaginal bleeding, no contractions Objective - Vital Signs Vital Signs: Vital Signs - 12hr 04/13/19 04/13/19 04/13/19 01:05 10:39 11:59 Temperature 97.5 F L Pulse Rate 83 80 Blood Pressure 97/56 98/61 - Labs Labs: Abnormal Labs 03/27/19 03/27/19 03/27/19 01:48 06:10 08:55 RBC Hgb 9.6 L Hct 29.5 L MCV 75 L MCH 24 L RDW [place] % (Auto) Seg Neutrophils % Sodium Potassium Carbon Dioxide BUN Creatinine Glucose POC Glucose 119 H Magnesium 3.50 H Alkaline Phosphatase Total Protein Albumin 03/27/19 03/27/19 03/27/19 09:19 14:55 19:57 RBC Hgb Hct MCV MCH RDW [place] % (Auto) Seg Neutrophils % Sodium Potassium Carbon Dioxide BUN Creatinine Glucose POC Glucose 123 H 125 H Magnesium 2.70 H Alkaline Phosphatase Total Protein Albumin 03/28/19 03/28/19 03/28/19 05:34 11:21 14:55 RBC Hgb Hct MCV MCH RDW [place] % (Auto) Seg Neutrophils % Sodium Potassium Carbon Dioxide BUN Creatinine Glucose POC Glucose 118 H 148 H 111 H Magnesium Alkaline Phosphatase Total Protein Albumin 03/28/19 03/30/19 03/31/19 19:47 16:40 21:51 RBC Hgb 9.5 L Hct 29.2 L MCV 75 L MCH 25 L RDW [place] % (Auto) 8.8 H Seg Neutrophils % 70.3 H Sodium Potassium Carbon Dioxide BUN Creatinine Glucose POC Glucose 117 H 127 H Magnesium Alkaline Phosphatase Total Protein Albumin 04/01/19 04/01/19 04/02/19 08:25 17:12 08:08 RBC 3.54 L Hgb 8.6 L 9.2 L Hct 26.4 L 28.3 L MCV 75 L 75 L MCH 24 L 24 L RDW 15.4 H 15.7 H [place] % (Auto) Seg Neutrophils % 70.3 H Sodium Potassium Carbon Dioxide BUN Creatinine Glucose POC Glucose 111 H Magnesium Alkaline Phosphatase Total Protein Albumin 04/02/19 04/02/19 04/02/19 12:07 17:16 22:28 RBC Hgb Hct MCV MCH RDW [place] % (Auto) Seg Neutrophils % Sodium Potassium Carbon Dioxide BUN Creatinine Glucose POC Glucose 126 H 155 H 109 H Magnesium Alkaline Phosphatase Total Protein Albumin 04/03/19 04/04/19 04/05/19 07:27 08:39 08:00 RBC Hgb 9.0 L 8.8 L 9.8 L Hct 27.7 L 27.3 L 30.2 L MCV 75 L 75 L 75 L MCH 24 L 24 L 25 L RDW 15.7 H 15.7 H 16.0 H [place] % (Auto) Seg Neutrophils % 72.5 H 70.5 H 70.1 H Sodium Potassium Carbon Dioxide BUN Creatinine Glucose POC Glucose Magnesium Alkaline Phosphatase Total Protein Albumin 04/05/19 04/05/19 04/06/19 17:26 21:50 10:51 RBC 3.55 L Hgb 8.6 L Hct 26.8 L MCV 75 L MCH 24 L RDW 15.9 H [place] % (Auto) Seg Neutrophils % 73.1 H Sodium Potassium Carbon Dioxide BUN Creatinine Glucose POC Glucose 118 H 106 H Magnesium Alkaline Phosphatase Total Protein Albumin 04/06/19 04/07/19 04/07/19 15:55 08:29 16:16 RBC Hgb 8.9 L Hct 27.7 L MCV 75 L MCH 24 L RDW 16.4 H [place] % (Auto) 7.5 H Seg Neutrophils % 71.0 H Sodium Potassium Carbon Dioxide BUN Creatinine Glucose POC Glucose 129 H 67 L Magnesium Alkaline Phosphatase Total Protein Albumin 04/08/19 04/08/19 04/08/19 07:53 16:43 21:52 RBC Hgb 8.8 L Hct 27.4 L MCV 75 L MCH 24 L RDW 16.6 H [place] % (Auto) Seg Neutrophils % Sodium Potassium Carbon Dioxide BUN Creatinine Glucose POC Glucose 65 L 109 H Magnesium Alkaline Phosphatase Total Protein Albumin 04/10/19 04/10/19 04/10/19 15:44 15:44 17:06 RBC Hgb 9.8 L Hct MCV 76 L MCH 24 L RDW 16.5 H [place] % (Auto) Seg Neutrophils % 72.9 H Sodium 135 L Potassium 3.4 L Carbon Dioxide 19 L BUN 4 L Creatinine 0.3 L Glucose 130 H POC Glucose 142 H Magnesium Alkaline Phosphatase 133 H Total Protein Albumin 3.3 L 04/12/19 04/12/19 10:03 10:03 RBC 3.59 L Hgb 8.7 L Hct 27.0 L MCV 75 L MCH 24 L RDW 16.6 H [place] % (Auto) Seg Neutrophils % 70.5 H Sodium 136 L Potassium Carbon Dioxide 20 L BUN 5 L Creatinine 0.2 L Glucose POC Glucose Magnesium Alkaline Phosphatase Total Protein 6.1 L Albumin 3.2 L Laboratory Results - last 24 hr 04/12/19 04/13/19 21:46 07:31 POC Glucose 87 89
[2019-04-13] MEDS: INSULIN LISPRO 100 UNIT/ML SUB-Q SCH ×2 (16:30→22:00)
[2019-04-14] MEDS: ZOLPIDEM 5 MG TAB PO PRN (00:02)
[2019-04-14] MEDS: LACTATED RINGERS 1,000 ML IV SCH (05:38)
[2019-04-14] MEDS: metFORMIN 500 MG TAB PO SCH ×2 (07:59→16:45)
[2019-04-14] MEDS: INSULIN LISPRO 100 UNIT/ML SUB-Q SCH ×4 (07:59→22:00)
[2019-04-14] MEDS: PRENATAL VIT27-FE FUMARATE-FOLIC ACID VIT TAB PO SCH (09:19)
[2019-04-14 09:53] LABS: Basophils % (Auto) 0.7 % (0.0-1.8); Eosinophils % (Auto) 0.7 % (0.0-4.3); Hematocrit 27.3 % (30.3-42.9); Hemoglobin 8.8 gm/dl (10.1-14.3); Lymphocytes # (Auto) 1.1 K/mm3 (1.2-5.4); Lymphocytes % (Auto) 21.5 % (13.4-35.0); Mean Corpuscular HGB Conc 32 % (30-34); Mean Corpuscular Volume 75 fl (79-97); Monocytes # (Auto) 0.3 K/mm3 (0.0-0.8); Monocytes % (Auto) 6.1 % (0.0-7.3); Platelet Count 167 K/mm3 (140-440); Red Blood Count 3.62 M/mm3 (3.65-5.03); Red Cell Distribution Width 16.9 % (13.2-15.2)
[2019-04-14 10:21] LABS: Alanine Aminotransferase 9 units/L (7-56); BUN/Creatinine Ratio 20; Blood Urea Nitrogen 4 mg/dL (7-17); Calcium 8.5 mg/dL (8.4-10.2); Hemolysis Index 3
--- NOTE | 2019-04-14 13:50 | Consultation ---
History of Present Illness Consult date: 04/14/19 Requesting physician: VINNY SPARROW History of present illness: Doing well Occ contax Denies fevers vag bleeding or leaking BS's well controlled EFM 140's Categ I BPP 8/8 on 04/10/19 Abd soft gravid NT EXt NT --------- Past History - Obstetrical History : 4 Medications and Allergies Allergies Allergy/AdvReac Type Severity Reaction Status Date / Time No Known Allergies Allergy Unverified 07/27/15 21:54 Home Medications Medication Instructions Recorded Confirmed Last Taken Type Vitamin 1 tab PO DAILY 03/28/19 03/28/19 02/26/19 10:00 History metFORMIN [Glucophage] 500 mg PO DAILY 03/28/19 03/28/19 02/26/19 16:00 History Active Meds: Active Medications Acetaminophen (Tylenol) 650 mg PO Q6H PRN PRN Reason: Pain, Moderate (4-6) Last Admin: 04/13/19 01:32 Dose: 650 mg Documented by: Butorphanol Tartrate (Stadol) 2 mg IV Q2H PRN PRN Reason: Labor Pain Last Admin: 03/30/19 19:59 Dose: 2 mg Documented by: Dextrose (D50w (25gm) Syringe) 50 ml IV Q30MIN PRN PRN Reason: Hypoglycemia Docusate Sodium (Colace) 100 mg PO Q12H PRN PRN Reason: Constipation Last Admin: 04/02/19 12:00 Dose: 100 mg Documented by: Ephedrine Sulfate (Ephedrine Sulfate) 10 mg IV Q2M PRN PRN Reason: Hypotension Lactated Ringer's (Lactated Ringers) 1,000 mls @ 125 mls/hr IV DIRECT SCHUYLER Last Admin: 04/14/19 05:38 Dose: 125 mls/hr Documented by: Magnesium Sulfate (Magnesium Sulfate 40gm/1000ml) 40 gm in 1,000 mls @ 50 mls/hr IV DIRECT SCHUYLER Last Admin: 03/27/19 03:02 Dose: 2 gm/hr, 50 mls/hr Documented by: Fentanyl/Bupivacaine/Sodium Chlor (Fentanyl-Bupiv 2 Mcg/Ml-0.125%) 200 mcg in 100 mls @ 12 mls/hr EPIDURAL TITR SCHUYLER; Protocol Insulin Human Lispro (Humalog) 0 unit SUB-Q ACHS [facility]; Protocol Last Admin: 04/14/19 11:42 Dose: Not Given Documented by: Metformin HCl (Glucophage) 500 mg PO BIDDIAB [facility] Last Admin: 04/14/19 07:59 Dose: 500 mg Documented by: Multivitamins/Iron/Calcium ( Vitamin) 1 each PO QDAY [facility] Last Admin: 04/14/19 09:19 Dose: 1 each Documented by: Naloxone HCl (Naloxone) 0.2 mg IV Q5M PRN PRN Reason: Respiratory sedation Simethicone (Mylicon) 80 mg PO PC PRN PRN Reason: Gas pain Last Admin: 03/31/19 02:43 Dose: 80 mg Documented by: Zolpidem Tartrate (Ambien) 5 mg PO QHS PRN PRN Reason: Sleep Last Admin: 04/14/19 00:02 Dose: 5 mg Documented by: - Vital Signs Vital signs: Vital Signs Pulse BP 83 117/72 03/27/19 01:09 03/27/19 01:09 Temp Pulse Resp BP Pulse Ox 97 F L 72 20 96/62 98 04/14/19 08:22 04/14/19 11:28 04/14/19 08:22 04/14/19 11:28 04/14/19 07:45 Results Result Diagrams: 04/14/19 09:23 04/14/19 09:23 Abnormal lab results 04/13/19 04/14/19 04/14/19 Range/Units 16:47 09:23 09:23 RBC 3.62 L (3.65-5.03) M/mm3 Hgb 8.8 L (10.1-14.3) gm/dl Hct 27.3 L (30.3-42.9) % MCV 75 L (79-97) fl MCH 24 L (28-32) pg RDW 16.9 H (13.2-15.2) % Lymph # 1.1 L (1.2-5.4) K/mm3 Seg Neutrophils % 71.0 H (40.0-70.0) % Potassium 3.3 L (3.6-5.0) mmol/L Carbon Dioxide 17 L (22-30) mmol/L BUN 4 L (7-17) mg/dL Creatinine 0.2 L (0.7-1.2) mg/dL POC Glucose 112 H (70-105) Total Protein 5.8 L (6.3-8.2) g/dL Albumin 3.0 L (3.9-5) g/dL All other labs normal. Assessment and Plan A- [place] IUP at 33 5/7 weeks PPROM on 03/27/19 Anemia S/P Betamethasone x 2 S/P Antibiotic protocol for PPROM Afebrile, VSS BPP / on 04/10/19 Occasional contractions adn leaking of fluid, denies vaginal bleeding Adequate glucose levels on current regimen- Metformin, Sliding Scale insulin P- Continue with plan of care for expectant management Monitor for signs of [place] Accuchecks QAC and HS for GDM BPP twice weekly- Sunday and (perform today please). Delivery recommended at 34 weeks for PPROM Iron for Anemia With additional questions/concerns, please contact [employer] producer. Thank you.
--- NOTE | 2019-04-14 14:08 | Progress Note ---
Assessment and Plan - Patient Problems (1) Gestational diabetes Current Visit: Yes Status: Acute (2) Leg pain, right Current Visit: Yes Status: Acute (3) with 32 completed weeks gestation Current Visit: Yes Status: Acute (4) contractions Current Visit: Yes Status: Acute Plan to address problem: Observation will continue. If contractions don't stop spontaneously, will allow to progress. (5) premature rupture of membranes Onset Date: 03/30/19 Current Visit: Yes Status: Acute Qualifiers: PROM onset of labor timing: onset of labor more than 24 hours following rupture Qualified Code(s): O42.119 - premature rupture of membranes, onset of labor more than 24 hours following rupture, unspecified trimester Plan to address problem: Recommendations by MFM 1. BPP ordered today 04/10/19 2. BPP Twice per week while undelivered 3. Antibiotics per protocol for PPROM - Done 4. Steroids Done 5. Delivery at 34 weeks 6. NICU consult 7. Iron BID 8. 2200 ADA diet 9. Accuchecks fastings and 2 hour PP's 10. Continue Metformin 500 11. Sliding scale Reg Insulin if BS increase after Steroids for BS > 140 would give : BS -100/20 = units of Reg Insulin Subjective - Subjective Principal diagnosis: IUP @ 33 4/7 weeks, PPROM, GDM Interval history: Admitted 03/27/2019 pull up hand with PPROM. Also has GDM 39 y/o SF [facility] 05/28/19 Now EGW at 33+5 weeks Denies fever chills abd pain - Occ contractions ------- Recent Diag with GDM - On Metformin 500 q day dinner complaining of contractions, good movement. Patient reports: new complaints (contractions), vaginal bleeding (spotting), movement normal, contractions (irregular), other (PT doing well. No complaints. No complaint of ctxs. PT eating well. ) Objective - Vital Signs Vital Signs: Vital Signs - 12hr 04/14/19 04/14/19 04/14/19 04:18 07:45 07:46 Temperature 98.3 F Pulse Rate 77 81 75 Respiratory 16 Rate Blood Pressure 94/59 98/56 Blood Pressure 94/59 [Right] O2 Sat by Pulse 98 Oximetry 04/14/19 04/14/19 08:22 11:28 Temperature 97 F L Pulse Rate 73 72 Respiratory 20 Rate Blood Pressure 96/62 Blood Pressure 96/56 [Right] O2 Sat by Pulse Oximetry - Exam Uterus: Absent: tenderness FHR: category 1 Uterine Contraction Monitor Mode: External Extremities: normal - Labs Labs: Abnormal Labs 03/27/19 03/27/19 03/27/19 01:48 06:10 08:55 RBC Hgb 9.6 L Hct 29.5 L MCV 75 L MCH 24 L RDW [place] % (Auto) Lymph # Seg Neutrophils % Sodium Potassium Carbon Dioxide BUN Creatinine Glucose POC Glucose 119 H Magnesium 3.50 H Alkaline Phosphatase Total Protein Albumin 03/27/19 03/27/19 03/27/19 09:19 14:55 19:57 RBC Hgb Hct MCV MCH RDW [place] % (Auto) Lymph # Seg Neutrophils % Sodium Potassium Carbon Dioxide BUN Creatinine Glucose POC Glucose 123 H 125 H Magnesium 2.70 H Alkaline Phosphatase Total Protein Albumin 03/28/19 03/28/19 03/28/19 05:34 11:21 14:55 RBC Hgb Hct MCV MCH RDW [place] % (Auto) Lymph # Seg Neutrophils % Sodium Potassium Carbon Dioxide BUN Creatinine Glucose POC Glucose 118 H 148 H 111 H Magnesium Alkaline Phosphatase Total Protein Albumin 03/28/19 03/30/19 03/31/19 19:47 16:40 21:51 RBC Hgb 9.5 L Hct 29.2 L MCV 75 L MCH 25 L RDW [place] % (Auto) 8.8 H Lymph # Seg Neutrophils % 70.3 H Sodium Potassium Carbon Dioxide BUN Creatinine Glucose POC Glucose 117 H 127 H Magnesium Alkaline Phosphatase Total Protein Albumin 04/01/19 04/01/19 04/02/19 08:25 17:12 08:08 RBC 3.54 L Hgb 8.6 L 9.2 L Hct 26.4 L 28.3 L MCV 75 L 75 L MCH 24 L 24 L RDW 15.4 H 15.7 H [place] % (Auto) Lymph # Seg Neutrophils % 70.3 H Sodium Potassium Carbon Dioxide BUN Creatinine Glucose POC Glucose 111 H Magnesium Alkaline Phosphatase Total Protein Albumin 04/02/19 04/02/19 04/02/19 12:07 17:16 22:28 RBC Hgb Hct MCV MCH RDW [place] % (Auto) Lymph # Seg Neutrophils % Sodium Potassium Carbon Dioxide BUN Creatinine Glucose POC Glucose 126 H 155 H 109 H Magnesium Alkaline Phosphatase Total Protein Albumin 04/03/19 04/04/19 04/05/19 07:27 08:39 08:00 RBC Hgb 9.0 L 8.8 L 9.8 L Hct 27.7 L 27.3 L 30.2 L MCV 75 L 75 L 75 L MCH 24 L 24 L 25 L RDW 15.7 H 15.7 H 16.0 H [place] % (Auto) Lymph # Seg Neutrophils % 72.5 H 70.5 H 70.1 H Sodium Potassium Carbon Dioxide BUN Creatinine Glucose POC Glucose Magnesium Alkaline Phosphatase Total Protein Albumin 04/05/19 04/05/19 04/06/19 17:26 21:50 10:51 RBC 3.55 L Hgb 8.6 L Hct 26.8 L MCV 75 L MCH 24 L RDW 15.9 H [place] % (Auto) Lymph # Seg Neutrophils % 73.1 H Sodium Potassium Carbon Dioxide BUN Creatinine Glucose POC Glucose 118 H 106 H Magnesium Alkaline Phosphatase Total Protein Albumin 04/06/19 04/07/19 04/07/19 15:55 08:29 16:16 RBC Hgb 8.9 L Hct 27.7 L MCV 75 L MCH 24 L RDW 16.4 H [place] % (Auto) 7.5 H Lymph # Seg Neutrophils % 71.0 H Sodium Potassium Carbon Dioxide BUN Creatinine Glucose POC Glucose 129 H 67 L Magnesium Alkaline Phosphatase Total Protein Albumin 04/08/19 04/08/19 04/08/19 07:53 16:43 21:52 RBC Hgb 8.8 L Hct 27.4 L MCV 75 L MCH 24 L RDW 16.6 H [place] % (Auto) Lymph # Seg Neutrophils % Sodium Potassium Carbon Dioxide BUN Creatinine Glucose POC Glucose 65 L 109 H Magnesium Alkaline Phosphatase Total Protein Albumin 04/10/19 04/10/19 04/10/19 15:44 15:44 17:06 RBC Hgb 9.8 L Hct MCV 76 L MCH 24 L RDW 16.5 H [place] % (Auto) Lymph # Seg Neutrophils % 72.9 H Sodium 135 L Potassium 3.4 L Carbon Dioxide 19 L BUN 4 L Creatinine 0.3 L Glucose 130 H POC Glucose 142 H Magnesium Alkaline Phosphatase 133 H Total Protein Albumin 3.3 L 04/12/19 04/12/19 04/13/19 10:03 10:03 16:47 RBC 3.59 L Hgb 8.7 L Hct 27.0 L MCV 75 L MCH 24 L RDW 16.6 H [place] % (Auto) Lymph # Seg Neutrophils % 70.5 H Sodium 136 L Potassium Carbon Dioxide 20 L BUN 5 L Creatinine 0.2 L Glucose POC Glucose 112 H Magnesium Alkaline Phosphatase Total Protein 6.1 L Albumin 3.2 L 04/14/19 04/14/19 09:23 09:23 RBC 3.62 L Hgb 8.8 L Hct 27.3 L MCV 75 L MCH 24 L RDW 16.9 H [place] % (Auto) Lymph # 1.1 L Seg Neutrophils % 71.0 H Sodium Potassium 3.3 L Carbon Dioxide 17 L BUN 4 L Creatinine 0.2 L Glucose POC Glucose Magnesium Alkaline Phosphatase Total Protein 5.8 L Albumin 3.0 L Laboratory Results - last 24 hr 04/13/19 04/13/19 04/14/19 16:47 22:06 07:43 WBC RBC Hgb Hct MCV MCH MCHC RDW Plt Count Lymph % (Auto) [place] % (Auto) Eos % (Auto) Baso % (Auto) Lymph # [place] # Eos # Baso # Seg Neutrophils % Seg Neutrophils # Sodium Potassium Chloride Carbon Dioxide Anion Gap BUN Creatinine Estimated GFR BUN/Creatinine Ratio Glucose POC Glucose 112 H 104 85 Calcium Total Bilirubin AST ALT Alkaline Phosphatase Total Protein Albumin Albumin/Globulin Ratio 04/14/19 04/14/19 09:23 09:23 WBC 5.1 RBC 3.62 L Hgb 8.8 L Hct 27.3 L MCV 75 L MCH 24 L MCHC 32 RDW 16.9 H Plt Count 167 Lymph % (Auto) 21.5 [place] % (Auto) 6.1 Eos % (Auto) 0.7 Baso % (Auto) 0.7 Lymph # 1.1 L [place] # 0.3 Eos # 0.0 Baso # 0.0 Seg Neutrophils % 71.0 H Seg Neutrophils # 3.6 Sodium 137 Potassium 3.3 L Chloride 105.3 Carbon Dioxide 17 L Anion Gap 18 BUN 4 L Creatinine 0.2 L Estimated GFR > 60 BUN/Creatinine Ratio 20 Glucose 95 POC Glucose Calcium 8.5 Total Bilirubin 0.40 AST 11 ALT 9 Alkaline Phosphatase 129 Total Protein 5.8 L Albumin 3.0 L Albumin/Globulin Ratio 1.1
[2019-04-14] MEDS: BUTORPHANOL 2 MG/1 ML INJ IV PRN (22:19)
[2019-04-15] MEDS: ZOLPIDEM 5 MG TAB PO PRN (00:11)
[2019-04-15] MEDS ORDERED: fentaNYL 100 MCG/2 ML INJ IV ONE (03:20)
[2019-04-15] MEDS: INSULIN LISPRO 100 UNIT/ML SUB-Q SCH ×2 (07:50→23:55)
[2019-04-15] MEDS: metFORMIN 500 MG TAB PO SCH ×4 (08:27→23:16)
[2019-04-15] MEDS: LACTATED RINGERS 1,000 ML IV SCH ×3 (08:51→19:52)
[2019-04-15] MEDS: PRENATAL VIT27-FE FUMARATE-FOLIC ACID VIT TAB PO SCH (10:43)
[2019-04-15 11:36] LABS: Bacteria,Urine 2+ /HPF (Negative); Bilirubin,Urine NEG (Negative); Blood,Urine LG (Negative); Color,Urine Yellow (Yellow); Protein,Urine <15 mg/dL mg/dL (Negative); Urobilinogen,Urine < 2.0 mg/dL (<2.0)
[2019-04-15] MEDS ORDERED: BUTORPHANOL 2 MG/1 ML INJ IV ONE ×3 (12:00→18:00)
[2019-04-15] MEDS ORDERED: AMPICILLIN/NS 2 GM/100 ML 2 GM/100 ML BAG IV ONE (13:21)
--- NOTE | 2019-04-15 15:27 | Progress Note ---
Assessment and Plan - Patient Problems (1) Gestational diabetes Current Visit: Yes Status: Acute (2) Leg pain, right Current Visit: Yes Status: Acute (3) with 32 completed weeks gestation Current Visit: Yes Status: Acute (4) contractions Current Visit: Yes Status: Acute (5) premature rupture of membranes Onset Date: 03/30/19 Current Visit: Yes Status: Acute Qualifiers: PROM onset of labor timing: onset of labor more than 24 hours following rupture Qualified Code(s): O42.119 - premature rupture of membranes, onset of labor more than 24 hours following rupture, unspecified trimester Subjective - Subjective Principal diagnosis: IUP @ 33 4/7 weeks, PPROM, GDM Interval history: Admitted 03/27/2019 [employer] with PPROM. Also has GDM 39 y/o SF [facility] 05/28/19 Now EGW at 33+6weeks Denies fever chills abd pain - Occ contractions ------- Recent Diag with GDM - On Metformin 500 q day dinner complaining of contractions, good movement. Patient reports: vaginal bleeding (spotting), movement normal, contractions (irregular), other (PT doing well. No complaints. No complaint of ctxs. PT eating well. ), no new complaints (contractions) Objective - Vital Signs Vital Signs: Vital Signs - 12hr 04/15/19 04/15/19 04/15/19 03:36 03:42 03:43 Temperature Pulse Rate 83 83 Respiratory 20 Rate Blood Pressure Blood Pressure [Left] Blood Pressure [Right] O2 Sat by Pulse 97 98 Oximetry 04/15/19 04/15/19 04/15/19 03:47 03:52 03:57 Temperature Pulse Rate 87 85 82 Respiratory Rate Blood Pressure Blood Pressure [Left] Blood Pressure [Right] O2 Sat by Pulse 98 94 93 Oximetry 04/15/19 04/15/19 04/15/19 04:02 04:03 04:07 Temperature Pulse Rate 83 79 81 Respiratory Rate Blood Pressure Blood Pressure [Left] Blood Pressure [Right] O2 Sat by Pulse 94 94 94 Oximetry 04/15/19 04/15/19 04/15/19 04:12 04:14 04:17 Temperature Pulse Rate 77 76 79 Respiratory Rate Blood Pressure 94/57 Blood Pressure [Left] Blood Pressure [Right] O2 Sat by Pulse 93 93 94 Oximetry 04/15/19 04/15/19 04/15/19 04:22 04:27 04:28 Temperature Pulse Rate 80 79 76 Respiratory Rate Blood Pressure Blood Pressure [Left] Blood Pressure [Right] O2 Sat by Pulse 94 93 94 Oximetry 04/15/19 04/15/19 04/15/19 04:32 04:37 04:40 Temperature Pulse Rate 77 74 73 Respiratory Rate Blood Pressure Blood Pressure [Left] Blood Pressure [Right] O2 Sat by Pulse 93 93 94 Oximetry 04/15/19 04/15/19 04/15/19 04:42 04:47 04:52 Temperature Pulse Rate 75 76 75 Respiratory Rate Blood Pressure Blood Pressure [Left] Blood Pressure [Right] O2 Sat by Pulse 93 94 94 Oximetry 04/15/19 04/15/19 04/15/19 04:56 04:57 05:01 Temperature Pulse Rate 75 72 73 Respiratory Rate Blood Pressure Blood Pressure [Left] Blood Pressure [Right] O2 Sat by Pulse 94 95 93 Oximetry 04/15/19 04/15/19 04/15/19 05:02 05:07 05:11 Temperature Pulse Rate 72 72 73 Respiratory Rate Blood Pressure Blood Pressure [Left] Blood Pressure [Right] O2 Sat by Pulse 94 94 94 Oximetry 04/15/19 04/15/19 04/15/19 05:12 05:17 05:19 Temperature Pulse Rate 74 75 77 Respiratory Rate Blood Pressure Blood Pressure [Left] Blood Pressure [Right] O2 Sat by Pulse 94 95 94 Oximetry 04/15/19 04/15/19 04/15/19 05:22 05:24 05:27 Temperature Pulse Rate 69 74 70 Respiratory Rate Blood Pressure Blood Pressure [Left] Blood Pressure [Right] O2 Sat by Pulse 96 94 94 Oximetry 04/15/19 04/15/19 04/15/19 05:34 05:39 05:44 Temperature Pulse Rate 77 72 77 Respiratory Rate Blood Pressure 103/61 Blood Pressure [Left] Blood Pressure [Right] O2 Sat by Pulse 98 97 96 Oximetry 04/15/19 04/15/19 04/15/19 05:49 05:54 05:59 Temperature Pulse Rate 75 78 64 Respiratory Rate Blood Pressure Blood Pressure [Left] Blood Pressure [Right] O2 Sat by Pulse 96 97 96 Oximetry 04/15/19 04/15/19 04/15/19 06:04 06:09 06:14 Temperature Pulse Rate 72 68 83 Respiratory Rate Blood Pressure Blood Pressure [Left] Blood Pressure [Right] O2 Sat by Pulse 96 100 95 Oximetry 04/15/19 04/15/19 04/15/19 06:19 06:24 06:29 Temperature Pulse Rate 77 78 78 Respiratory Rate Blood Pressure Blood Pressure [Left] Blood Pressure [Right] O2 Sat by Pulse 97 96 97 Oximetry 04/15/19 04/15/19 04/15/19 06:34 06:39 06:44 Temperature Pulse Rate 76 80 83 Respiratory Rate Blood Pressure Blood Pressure [Left] Blood Pressure [Right] O2 Sat by Pulse 96 97 97 Oximetry 04/15/19 04/15/19 04/15/19 06:49 06:52 06:54 Temperature Pulse Rate 85 95 H 91 H Respiratory Rate Blood Pressure Blood Pressure [Left] Blood Pressure [Right] O2 Sat by Pulse 96 94 97 Oximetry 04/15/19 04/15/19 04/15/19 06:59 07:04 07:05 Temperature Pulse Rate 83 77 94 H Respiratory Rate Blood Pressure Blood Pressure [Left] Blood Pressure [Right] O2 Sat by Pulse 97 95 94 Oximetry 04/15/19 04/15/19 04/15/19 07:09 07:14 07:19 Temperature Pulse Rate 87 80 80 Respiratory Rate Blood Pressure Blood Pressure [Left] Blood Pressure [Right] O2 Sat by Pulse 95 97 97 Oximetry 04/15/19 04/15/19 04/15/19 07:24 07:29 07:34 Temperature Pulse Rate 78 79 80 Respiratory Rate Blood Pressure Blood Pressure [Left] Blood Pressure [Right] O2 Sat by Pulse 96 96 96 Oximetry 04/15/19 04/15/19 04/15/19 07:39 07:42 07:44 Temperature 98.5 F Pulse Rate 84 82 82 Respiratory 18 Rate Blood Pressure 86/53 Blood Pressure 100/64 [Left] Blood Pressure 86/54 [Right] O2 Sat by Pulse 97 Oximetry 04/15/19 04/15/19 04/15/19 07:45 07:46 07:48 Temperature Pulse Rate 79 82 87 Respiratory Rate Blood Pressure 86/54 83/53 Blood Pressure [Left] Blood Pressure [Right] O2 Sat by Pulse 97 84 Oximetry 04/15/19 04/15/19 04/15/19 07:49 07:50 07:53 Temperature Pulse Rate 83 85 79 Respiratory Rate Blood Pressure 100/64 Blood Pressure [Left] Blood Pressure [Right] O2 Sat by Pulse 94 94 Oximetry 04/15/19 04/15/19 04/15/19 07:55 08:12 08:17 Temperature Pulse Rate 79 82 78 Respiratory Rate Blood Pressure Blood Pressure [Left] Blood Pressure [Right] O2 Sat by Pulse 94 97 97 Oximetry 04/15/19 04/15/19 04/15/19 08:22 08:27 08:32 Temperature Pulse Rate 82 80 82 Respiratory Rate Blood Pressure Blood Pressure [Left] Blood Pressure [Right] O2 Sat by Pulse 97 97 97 Oximetry 04/15/19 04/15/19 04/15/19 09:57 10:02 10:07 Temperature Pulse Rate 85 80 83 Respiratory Rate Blood Pressure Blood Pressure [Left] Blood Pressure [Right] O2 Sat by Pulse 97 96 98 Oximetry 04/15/19 04/15/19 04/15/19 10:12 10:17 10:19 Temperature Pulse Rate 84 88 86 Respiratory Rate Blood Pressure Blood Pressure [Left] Blood Pressure [Right] O2 Sat by Pulse 96 96 94 Oximetry 04/15/19 04/15/19 04/15/19 10:22 10:38 10:39 Temperature Pulse Rate 85 82 Respiratory Rate Blood Pressure Blood Pressure [Left] Blood Pressure [Right] O2 Sat by Pulse 95 94 95 Oximetry 04/15/19 04/15/19 04/15/19 10:44 10:45 10:48 Temperature 98.2 F Pulse Rate 83 81 Respiratory Rate Blood Pressure Blood Pressure [Left] Blood Pressure [Right] O2 Sat by Pulse 95 94 Oximetry 04/15/19 04/15/19 04/15/19 10:49 10:54 10:59 Temperature Pulse Rate 84 84 87 Respiratory Rate Blood Pressure Blood Pressure [Left] Blood Pressure [Right] O2 Sat by Pulse 95 96 96 Oximetry 04/15/19 04/15/19 04/15/19 11:06 11:11 11:16 Temperature Pulse Rate 87 87 86 Respiratory Rate Blood Pressure Blood Pressure [Left] Blood Pressure [Right] O2 Sat by Pulse 98 96 96 Oximetry 04/15/19 04/15/19 04/15/19 11:21 11:23 11:37 Temperature Pulse Rate 84 82 78 Respiratory Rate Blood Pressure 102/58 Blood Pressure [Left] Blood Pressure [Right] O2 Sat by Pulse 96 94 Oximetry 04/15/19 04/15/19 04/15/19 12:50 13:38 13:39 Temperature 97.5 F L Pulse Rate 80 79 Respiratory Rate Blood Pressure 73/37 95/55 Blood Pressure [Left] Blood Pressure [Right] O2 Sat by Pulse Oximetry - Labs Labs: Abnormal Labs 03/27/19 03/27/19 03/27/19 01:48 06:10 08:55 RBC Hgb 9.6 L Hct 29.5 L MCV 75 L MCH 24 L RDW [place] % (Auto) Lymph # Seg Neutrophils % Sodium Potassium Carbon Dioxide BUN Creatinine Glucose POC Glucose 119 H Magnesium 3.50 H Alkaline Phosphatase Total Protein Albumin Urine pH Urine WBC (Auto) 03/27/19 03/27/19 03/27/19 09:19 14:55 19:57 RBC Hgb Hct MCV MCH RDW [place] % (Auto) Lymph # Seg Neutrophils % Sodium Potassium Carbon Dioxide BUN Creatinine Glucose POC Glucose 123 H 125 H Magnesium 2.70 H Alkaline Phosphatase Total Protein Albumin Urine pH Urine WBC (Auto) 03/28/19 03/28/19 03/28/19 05:34 11:21 14:55 RBC Hgb Hct MCV MCH RDW [place] % (Auto) Lymph # Seg Neutrophils % Sodium Potassium Carbon Dioxide BUN Creatinine Glucose POC Glucose 118 H 148 H 111 H Magnesium Alkaline Phosphatase Total Protein Albumin Urine pH Urine WBC (Auto) 03/28/19 03/30/19 03/31/19 19:47 16:40 21:51 RBC Hgb 9.5 L Hct 29.2 L MCV 75 L MCH 25 L RDW [place] % (Auto) 8.8 H Lymph # Seg Neutrophils % 70.3 H Sodium Potassium Carbon Dioxide BUN Creatinine Glucose POC Glucose 117 H 127 H Magnesium Alkaline Phosphatase Total Protein Albumin Urine pH Urine WBC (Auto) 04/01/19 04/01/19 04/02/19 08:25 17:12 08:08 RBC 3.54 L Hgb 8.6 L 9.2 L Hct 26.4 L 28.3 L MCV 75 L 75 L MCH 24 L 24 L RDW 15.4 H 15.7 H [place] % (Auto) Lymph # Seg Neutrophils % 70.3 H Sodium Potassium Carbon Dioxide BUN Creatinine Glucose POC Glucose 111 H Magnesium Alkaline Phosphatase Total Protein Albumin Urine pH Urine WBC (Auto) 04/02/19 04/02/19 04/02/19 12:07 17:16 22:28 RBC Hgb Hct MCV MCH RDW [place] % (Auto) Lymph # Seg Neutrophils % Sodium Potassium Carbon Dioxide BUN Creatinine Glucose POC Glucose 126 H 155 H 109 H Magnesium Alkaline Phosphatase Total Protein Albumin Urine pH Urine WBC (Auto) 04/03/19 04/04/19 04/05/19 07:27 08:39 08:00 RBC Hgb 9.0 L 8.8 L 9.8 L Hct 27.7 L 27.3 L 30.2 L MCV 75 L 75 L 75 L MCH 24 L 24 L 25 L RDW 15.7 H 15.7 H 16.0 H [place] % (Auto) Lymph # Seg Neutrophils % 72.5 H 70.5 H 70.1 H Sodium Potassium Carbon Dioxide BUN Creatinine Glucose POC Glucose Magnesium Alkaline Phosphatase Total Protein Albumin Urine pH Urine WBC (Auto) 04/05/19 04/05/19 04/06/19 17:26 21:50 10:51 RBC 3.55 L Hgb 8.6 L Hct 26.8 L MCV 75 L MCH 24 L RDW 15.9 H [place] % (Auto) Lymph # Seg Neutrophils % 73.1 H Sodium Potassium Carbon Dioxide BUN Creatinine Glucose POC Glucose 118 H 106 H Magnesium Alkaline Phosphatase Total Protein Albumin Urine pH Urine WBC (Auto) 04/06/19 04/07/19 04/07/19 15:55 08:29 16:16 RBC Hgb 8.9 L Hct 27.7 L MCV 75 L MCH 24 L RDW 16.4 H [place] % (Auto) 7.5 H Lymph # Seg Neutrophils % 71.0 H Sodium Potassium Carbon Dioxide BUN Creatinine Glucose POC Glucose 129 H 67 L Magnesium Alkaline Phosphatase Total Protein Albumin Urine pH Urine WBC (Auto) 04/08/19 04/08/19 04/08/19 07:53 16:43 21:52 RBC Hgb 8.8 L Hct 27.4 L MCV 75 L MCH 24 L RDW 16.6 H [place] % (Auto) Lymph # Seg Neutrophils % Sodium Potassium Carbon Dioxide BUN Creatinine Glucose POC Glucose 65 L 109 H Magnesium Alkaline Phosphatase Total Protein Albumin Urine pH Urine WBC (Auto) 04/10/19 04/10/19 04/10/19 15:44 15:44 17:06 RBC Hgb 9.8 L Hct MCV 76 L MCH 24 L RDW 16.5 H [place] % (Auto) Lymph # Seg Neutrophils % 72.9 H Sodium 135 L Potassium 3.4 L Carbon Dioxide 19 L BUN 4 L Creatinine 0.3 L Glucose 130 H POC Glucose 142 H Magnesium Alkaline Phosphatase 133 H Total Protein Albumin 3.3 L Urine pH Urine WBC (Auto) 04/12/19 04/12/19 04/13/19 10:03 10:03 16:47 RBC 3.59 L Hgb 8.7 L Hct 27.0 L MCV 75 L MCH 24 L RDW 16.6 H [place] % (Auto) Lymph # Seg Neutrophils % 70.5 H Sodium 136 L Potassium Carbon Dioxide 20 L BUN 5 L Creatinine 0.2 L Glucose POC Glucose 112 H Magnesium Alkaline Phosphatase Total Protein 6.1 L Albumin 3.2 L Urine pH Urine WBC (Auto) 04/14/19 04/14/19 04/14/19 09:23 09:23 16:33 RBC 3.62 L Hgb 8.8 L Hct 27.3 L MCV 75 L MCH 24 L RDW 16.9 H [place] % (Auto) Lymph # 1.1 L Seg Neutrophils % 71.0 H Sodium Potassium 3.3 L Carbon Dioxide 17 L BUN 4 L Creatinine 0.2 L Glucose POC Glucose 150 H Magnesium Alkaline Phosphatase Total Protein 5.8 L Albumin 3.0 L Urine pH Urine WBC (Auto) 04/15/19 10:30 RBC Hgb Hct MCV MCH RDW [place] % (Auto) Lymph # Seg Neutrophils % Sodium Potassium Carbon Dioxide BUN Creatinine Glucose POC Glucose Magnesium Alkaline Phosphatase Total Protein Albumin Urine pH 8.0 H Urine WBC (Auto) 15.0 H Laboratory Results - last 24 hr 04/14/19 04/14/19 04/15/19 16:33 22:01 08:06 POC Glucose 150 H 81 89 Urine Color Urine Turbidity Urine pH Ur Specific [place] Urine Protein Urine Glucose (UA) Urine Ketones Urine Blood Urine Nitrite Urine Bilirubin Urine Urobilinogen Ur Leukocyte Esterase Urine WBC (Auto) Urine RBC (Auto) U Epithel Cells (Auto) Urine Bacteria (Auto) 04/15/19 04/15/19 10:30 14:19 POC Glucose 74 Urine Color Yellow Urine Turbidity Clear Urine pH 8.0 H Ur Specific [place] 1.004 Urine Protein <15 mg/dl Urine Glucose (UA) Neg Urine Ketones Tr Urine Blood Lg Urine Nitrite Neg Urine Bilirubin Neg Urine Urobilinogen < 2.0 Ur Leukocyte Esterase Lg Urine WBC (Auto) 15.0 H Urine RBC (Auto) 160.0 U Epithel Cells (Auto) 6.0 Urine Bacteria (Auto) 2+
[2019-04-15] MEDS ORDERED: NALOXONE 2 MG/2 ML INJ IV PRN ×2 (17:39→18:59)
[2019-04-15] MEDS ORDERED: ePHEDrine SULFATE 50 MG/1 ML INJ IV PRN ×2 (17:39→18:59)
--- NOTE | 2019-04-15 17:39 | Anesthesia Consultation ---
Anesthesia Consult and Med Hx Date of service: 04/15/19 - Airway Anesthetic Teeth Evaluation: Good ROM Head & Neck: Adequate Mental/Hyoid Distance: Adequate Mallampati Class: Class II Intubation Access Assessment: Probably Good - Pulmonary Exam CTA: Yes - Cardiac Exam Cardiac Exam: RRR - Pre-Operative Health Status ASA Pre-Surgery Classification: ASA3 Proposed Anesthetic Plan: Epidural - Pulmonary Hx Asthma: No COPD: No Hx Pneumonia: No - Cardiovascular System Hx Hypertension: No - Central Nervous System Hx Seizures: No Hx Psychiatric Problems: No - Endocrine Hx Renal Disease: No Hx End Stage Renal Disease: No Hx Hypothyroidism: No Hx Hyperthyroidism: No - Hematic Hx Anemia: No Hx Sickle Cell Disease: No - Other Systems Hx Alcohol Use: No
[2019-04-15] MEDS ORDERED: BUPIVACAINE/PF (0.25%) 2.5 MG/ML 10 ML VIAL INFILTRATI ONE (17:55)
[2019-04-15] MEDS ORDERED: fentaNYL-BUPIV 2 MCG/ML-0.125% 200 MCG/100 ML BAG EPIDURAL SCH ×2 (18:00→19:00)
[2019-04-15] MEDS ORDERED: AMPICILLIN/NS 1 GM/50 ML 1 GM/50 ML BAG IV ONE (18:00)
--- NOTE | 2019-04-15 18:13 | Ultrasound Report ---
ULTRASOUND OBSTETRIC limited INDICATION / CLINICAL INFORMATION: TONY, rule out abruption, presentation. Clinical Gestational Age (GA): TECHNIQUE: Transabdominal. COMPARISON: None available. FINDINGS: There is a single intrauterine . Heart Rate: 131 beats per minute. Position: breech. Placenta: anterior, fundal, grade 1 and free of the os. Amniotic Fluid Volume: decreased Amniotic Fluid Index (TONY) in cm (if calculated): 2.4. IMPRESSION: 1. Single living intrauterine fetus in breech presentation. 2. Oligohydramnios with TONY of 2.4 Signer Name: Raul Aggarwal MD Signed: 04/15/2019 6:08 PM Workstation Name: [id number]
--- NOTE | 2019-04-15 18:38 | Ultrasound Report ---
ULTRASOUND BIOPHYSICAL PROFILE INDICATION: well being. COMPARISON: None available. FINDINGS: BREATHING MOVEMENT = 0 GROSS BODY MOVEMENT = 0 Only 2 movements seen in 30 min. TONE = 2 QUALITATIVE AMNIOTIC FLUID VOLUME = 2 TOTAL BIOPHYSICAL SCORE = 4/8 AMNIOTIC FLUID INDEX (cm) = 2.4 cm all located within single pocket in left lower quadrant. PRESENTATION: Cephalic. HEART RATE (beats per minute): IMPRESSION: 1. biophysical profile = 4/8 2. Oligohydramnios. Critical result discovered at 5:15 PM Central time hours and called to nurse environmental services lead Fermin at 1733 PM hours on 04/15/2019. A read back was performed. Signer Name: Raul Aggarwal MD Signed: 04/15/2019 6:33 PM Workstation Name: [id number]
[2019-04-15] MEDS ORDERED: BICITRA ORAL LIQD 30ML PO ONE ×2 (20:18→20:22)
[2019-04-15] MEDS ORDERED: FAMOTIDINE 20 MG/2 ML INJ IV ONE (20:22)
[2019-04-15] MEDS ORDERED: METOCLOPRAMIDE 10 MG/2 ML INJ IV ONE (20:22)
--- NOTE | 2019-04-15 20:54 | Event Note ---
Date: 04/15/19 Patient went into spontaneous labor. Ultrasound exam has fetus in breech presentation. Of options for delivery Patient chose a delivery. Plan: delivery imminently.
[2019-04-15] MEDS ORDERED: OXYTOCIN 20 UNIT/1000ML DRIP 20 UNITS/1,000 ML BAG IV SCH ×2 (21:00→22:00)
[2019-04-15] MEDS ORDERED: LACTATED RINGERS 1,000 ML IV SCH (21:00)
[2019-04-15] MEDS ORDERED: ceFAZolin/Water 2 GM/20 ML 2 GM/20 ML SYRINGE IV NR (21:00)
[2019-04-15] MEDS ORDERED: METHYLERGONOVINE MALEATE 0.2 MG/ML VIAL IM ONE (21:29)
[2019-04-15] MEDS ORDERED: KETOROLAC 30 MG/1 ML INJ ONE (21:30)
[2019-04-15] MEDS ORDERED: DEXMEDETOMIDINE 200 MCG/2 ML VIAL IV ONE (21:30)
[2019-04-15] MEDS ORDERED: PHENYLEPHRINE 10 MG/1 ML INJ SDV ONE (21:30)
[2019-04-15] MEDS ORDERED: SODIUM BICARB 8.4% 50 MEQ/50 ML VIAL IV ONE (21:30)
[2019-04-15] MEDS ORDERED: LIDOCAINE MPF (2%) 20 MG/1 ML VIAL 5 ML ONE (21:30)
[2019-04-15] MEDS ORDERED: OXYTOCIN 10 UNIT/1 ML INJ ONE (21:30)
[2019-04-15] MEDS ORDERED: LANOLIN/ZINC/DIMETHICONE (LANSINOH) 7 GM TP PRN (21:58)
[2019-04-15] MEDS ORDERED: ONDANSETRON 4 MG/2 ML INJ IV PRN (21:58)
[2019-04-15] MEDS ORDERED: NALOXONE 0.4 MG/1 ML INJ IV PRN (21:58)
[2019-04-15] MEDS ORDERED: WITCH HAZEL/ GLYCERIN PAD TP PRN (21:58)
[2019-04-15] MEDS ORDERED: ACETAMINOPHEN 325 MG TAB PO PRN (21:58)
--- NOTE | 2019-04-15 22:08 | Operative Report ---
Operative Report Operative Report: Date of surgery: 04/15/2019 Preoperative diagnoses: premature rupture of membranes, 33+6 weeks gestation, spontaneous labor, breech presentation Postoperative diagnoses: The same. Operation: Lower segment transverse delivery Surgeon:Daniel Gallardo MD [place] Whacker: HUGO Martinez Anesthesia: Spinal block Estimated blood loss: 800 mL Complications: None Findings: There was a live baby boy in complete breech presentation, weight was 7 lbs. 3 oz. and scores 8/9. Both ovaries and fallopian tubes were grossly normal. The uterus was an unremarkable gravid structure. Procedure in detail: The patient was taken to the operating room and given a spinal block. Patient was placed in the straight supine position and a Garcia catheter was inserted. The patient was prepped in the abdomen. The drapes were placed. A timeout was done. With the go ahead from the alpine guide, a Pfannenstiel incision was made. This incision was carried across the subcutaneous layer to the fascia which was also divided transversely. The recti abdominis muscle flaps were stripped from the fascia using a combination of blunt and sharp dissections. The muscles were in the midline to gain access to the anterior parietal peritoneum which was divided after excluding any underlying viscera. The access to the peritoneal cavity was then widened by manual stretching. The bladder blade was applied. The utero vesicle peritoneal flap was divided transversely allowing th e bladder to be displaced caudally. The uterine incision was placed in the lower segment transversely. The uterine incision was carried to the decidual layer. The uterine incision was extended on both sides using the bandage scissors. The amniotic sac was ruptured with little clear fluid. The lower limbs were brought out through the incision and with traction on both ankles the fetus was delivered to the waist line. The waist was then wrapped with wet blue towel and with traction against the waist the trunk of the baby was delivered to the shoulder blades. The Lovset maneuver was used to deliver the arms. Replace in the blue towel and ankles, the baby was then turned upside down with the feet up, allowing fundal pressure to deliver the head of the . The airways were bulb suctioned beginning with the mouth. The umbilical cord was double clamped and divided. The baby was carefully transferred to the pediatric team. The placenta was manually removed from the uterine cavity. The uterine cavity was explored and was empty of any placental remnants. The uterine incision was repaired in 2 layers with #1 Vicryl. The surgical line on the uterus was hemostatic. Blood and clots were cleared from the peritoneal cavity. The anterior parietal peritoneum was repaired with #1 Vicryl. The fascia was repaired with #1 Vicryl. The subcutaneous layer was made hemostatic using the Bovie before the skin was closed subcuticularly with 4-0 Vicryl. There were no complications. The estimated blood loss was 800 mL. All sponges and instrument counts were correct. Patient was safely transferred to the recovery room.
--- NOTE | 2019-04-15 23:33 | Post Anesthesia Evaluation ---
- Post Anesthesia Evaluation Patient Participated: Yes Airway Patent: Yes Stable Respiratory Function: Yes Nausea/Vomiting: No Temp > 96.8F: Yes Pain Manageable: Yes Adequeate Hydration: Yes Anesthesia Complications: No Block Receding Appropriately: Yes
[2019-04-16] MEDS: LACTATED RINGERS 1,000 ML IV SCH (01:00)
[2019-04-16] MEDS: MORPHINE 4 MG/1 ML INJ IV PRN ×3 (01:51→11:02)
[2019-04-16] MEDS: ceFAZolin/NS 1 GM/50 ML 1 GM/50 ML BAG IV SCH ×2 (05:56→16:33)
[2019-04-16] MEDS: metFORMIN 500 MG TAB PO SCH (08:00)
[2019-04-16] MEDS: KETOROLAC 30 MG/1 ML INJ IV PRN ×3 (08:40→16:34)
[2019-04-16] MEDS ORDERED: PRENATAL VIT27-FE FUMARATE-FOLIC ACID VIT TAB PO SCH (10:00)
[2019-04-16] MEDS ORDERED: FERROUS SULFATE 325 MG TAB PO SCH (10:00)
[2019-04-16 10:44] LABS: Hematocrit 24.2 % (30.3-42.9); Hemoglobin 7.7 gm/dl (10.1-14.3)
[2019-04-16] MEDS: SIMETHICONE 80 MG CHEW TAB PO PRN ×2 (11:01→16:55)
--- NOTE | 2019-04-16 12:06 | Progress Note ---
Assessment and Plan A: POD #1 GDM A1 Asymptomatic Anemia Negative Flatus P: Follow Routine PostOp Orders Continue Accuchecks as orderd Increase Ambulation Continue FeSO4 as ordered Subjective - Subjective Date of service: 04/16/19 Principal diagnosis: IUP @ 33 4/7 weeks, PPROM, GDM Patient reports: appetite normal, voiding normally, pain well controlled, ambulating normally [place]: doing well, bottle feeding Objective - Vital Signs Latest vital signs: Vital Signs Temp Pulse Resp BP BP BP Pulse Ox 04/16/19 11:40 98.0 F 86 18 95/62 99 04/16/19 09:08 97.8 F 82 18 96/59 95 04/16/19 05:30 98.8 F 82 18 95/55 96 04/16/19 01:50 98 F 92 H 18 93/55 97 04/16/19 00:50 97.9 F 82 90/51 04/16/19 00:35 62 20 138/71 99 04/16/19 00:00 16 04/15/19 23:45 61 153/79 04/15/19 23:10 98.2 F 61 20 140/81 100 04/15/19 22:55 66 22 138/75 98 04/15/19 22:40 61 22 148/74 98 04/15/19 22:25 68 18 141/81 100 04/15/19 22:20 64 18 131/79 100 04/15/19 22:15 64 16 137/77 99 04/15/19 22:08 98.5 F 84 16 99 04/15/19 20:44 111 H 107/63 04/15/19 20:39 101 H 106/60 04/15/19 20:34 113 H 101/57 04/15/19 20:33 109 H 100 04/15/19 20:29 108 H 99/58 04/15/19 20:27 105 H 99 04/15/19 20:24 114 H 102/55 04/15/19 20:22 114 H 99 04/15/19 20:19 121 H 102/57 04/15/19 20:17 112 H 100 04/15/19 20:14 111 H 97/53 04/15/19 20:12 118 H 99 04/15/19 20:10 113 H 103/56 04/15/19 20:07 117 H 98 11/19/19 20:04 118 H 91/50 19/19 20:03 109 H 93/54 04/15/19 20:02 115 H 99 19 19:59 108 H 97/51 04/15/19 19:57 110 H 99 19 19:54 109 H 106/56 04/15/19 19:52 112 H 98 19 19:47 116 H 103/55 96 19 19:43 103 H 105/60 19 19:42 101 H 95 19 19:40 110 H 108/65 19 19:37 114 H 106/61 96 19 19:34 105 H 105/64 19 19:32 102 H 97 19 19:31 99 H 103/64 19 19:28 102 H 101/65 19 19:27 103 H 98 04/15/19 19:26 98.2 F 98 H 24 101/62 99 19 19:25 104 H 101/62 19 19:22 108 H 106/59 99 19 19:19 110 H 104/64 19 19:17 98 H 99 19 19:16 118 H 106/66 19 19:13 115 H 108/66 19 19:12 117 H 99 19 19:10 120 H 108/67 19 19:07 104 H 107/69 100 19 19:04 125 H 103/67 19 19:03 116 H 116/62 19 19:02 101 H 100 19 18:58 108 H 114/63 19 18:57 129 H 100 19 18:55 121 H 117/65 19 18:53 123 H 121/68 04/15/19 18:52 114 H 99 19 18:47 117 H 99 19 18:46 102 H 93/61 04/15/19 18:43 126 H 103/55 04/15/19 18:42 116 H 98 19 18:40 120 H 104/59 04/15/19 18:37 111 H 113/65 98 04/15/19 18:35 113 H 130/71 04/15/19 18:32 111 H 98 04/15/19 18:31 104 H 110/59 93 04/15/19 18:28 109 H 127/65 04/15/19 18:26 110 H 127/67 04/15/19 18:23 109 H 135/60 04/15/19 18:19 100 H 118/70 04/15/19 18:16 97 H 121/73 04/15/19 18:13 99 H 125/71 04/15/19 18:10 104 H 122/69 04/15/19 18:07 100 H 122/64 04/15/19 18:05 104 H 116/70 04/15/19 18:02 103 H 121/71 04/15/19 16:12 97.8 F 81 20 116/65 04/15/19 13:39 79 95/55 04/15/19 13:38 80 73/37 04/15/19 12:50 97.5 F L Intake and Output 04/15/19 04/16/19 04/16/19 22:59 06:59 14:59 Intake Total 1377.083 641.667 240 Output Total 1750 650 800 Balance -372.917 -8.333 -560 Intake: IV 1377.083 641.667 Lactated Ringers 1,000 ml 1377.083 641.667 @ 125 mls/hr IV DIRECT [facility] Rx#:[id number] Oral 240 Output: Urine 1750 650 800 Indwelling Catheter 800 650 600 Void 950 200 Other: Total, Intake Amount 240 Total, Output Amount 800 650 800 # Voids Void 3 1 Estimated Blood Loss 800 - Exam Breasts: Present: normal Cardiovascular: Present: Regular rate Lungs: Present: Clear to auscultation, Normal air movement Abdomen: Present: normal appearance, soft, normal bowel sounds Uterus: Present: normal, firm, fundal height below umbilicus Extremities: Present: normal Incision: Present: normal, dry, dressed - Labs Labs: Abnormal lab results 04/15/19 04/16/19 Range/Units 23:11 10:18 Hgb 7.7 L (10.1-14.3) gm/dl Hct 24.2 L (30.3-42.9) % POC Glucose 124 H (70-105)
[2019-04-16] MEDS: FERROUS SULFATE 325 MG TAB PO SCH ×2 (16:33→20:46)
[2019-04-16] MEDS ORDERED: SODIUM CHLORIDE 0.9% 500 ML 500 ML ONE (18:03)
[2019-04-16] MEDS: HYDROcodone/ACETAMINOPHEN 5-325 MG TAB PO PRN (20:45)
[2019-04-17] MEDS: IBUPROFEN 800 MG TAB PO PRN ×3 (00:52→20:41)
[2019-04-17] MEDS: SIMETHICONE 80 MG CHEW TAB PO PRN (00:55)
[2019-04-17] MEDS: HYDROcodone/ACETAMINOPHEN 5-325 MG TAB PO PRN ×4 (05:55→22:30)
[2019-04-17] MEDS: FERROUS SULFATE 325 MG TAB PO SCH ×2 (09:43→22:31)
[2019-04-17] MEDS: metFORMIN 500 MG TAB PO SCH ×2 (09:43→16:27)
--- NOTE | 2019-04-17 11:46 | Progress Note ---
Assessment and Plan A: POD #2 s/p Primary C/S (breech) GDM A1 Asymptomatic Anemia Pain well controlled P: Follow Routine PostOp Orders Continue Accuchecks as ordered Increase Ambulation Continue FeSO4 as ordered Anticipate discharge home in 24-48 hrs Subjective - Subjective Principal diagnosis: POD#2 s/p primary c/s (breech), GDM-A1 Interval history: See H&P and delivery note Patient reports: appetite normal, voiding normally, pain well controlled, ambulating normally [place]: in NICU () Objective - Vital Signs Latest vital signs: Vital Signs Temp Pulse Resp BP BP Pulse Ox 04/17/19 09:45 20 04/17/19 09:44 20 04/17/19 08:32 97.7 F 67 18 101/64 96 04/17/19 05:55 18 04/17/19 00:52 18 04/16/19 23:45 98.1 F 82 18 93/64 96 04/16/19 20:45 18 04/16/19 18:22 98.6 F 72 18 92/56 94 Intake and Output 04/16/19 04/17/19 04/17/19 23:59 07:59 15:59 Intake Total 1010 240 Output Total 400 Balance 610 240 Intake: IV 50 ANCEF/NS 1 GM/50 ML 1 gm 50 In 50 ml @ 100 mls/hr IV Q8H [facility] Rx#:[id number] Oral 240 240 Intake, Free Water 720 Output: Urine 400 Void 400 Other: Total, Intake Amount 120 120 Total, Output Amount 400 # Voids Void 2 1 - Exam Breasts: Present: normal Cardiovascular: Present: Regular rate, Normal S1, Normal S2, No murmurs Lungs: Present: Clear to auscultation, Normal air movement Abdomen: Present: normal appearance, soft, tenderness (as expected post-op), normal bowel sounds. Absent: distention Vulva: both: normal Uterus: Present: firm, fundal height at umbilicus Extremities: Present: normal Deep Tendon Reflex Grade: Normal +2 Incision: Present: normal, dry, intact, dressed (Pressure dressing CDI) - Labs Labs: Abnormal lab results 04/16/19 04/16/19 Range/Units 11:23 16:42 POC Glucose 106 H 106 H (70-105)
--- NOTE | 2019-04-17 11:48 | Discharge Summary ---
Providers - Providers Date of Admission: 03/28/19 07:41 Date of discharge: 04/18/19 Attending physician: VINNY SPARROW MD 03/27/19 07:35 Consult to Physician [CONS] Routine Comment: Consulting Provider: ANUP HOPSON Physician Instructions: Reason For Exam: chest heaviness during mag sulfate tx 03/27/19 08:05 Consult to Physician [CONS] Routine Comment: Consulting Provider: ELA HENDERSON Physician Instructions: Reason For Exam: chest heaviness 03/27/19 08:07 Consult to Physician [CONS] Routine Comment: Consulting Provider: BRENDA MAYFIELD Physician Instructions: Reason For Exam: PPROM at 31.1 wks 03/27/19 16:07 Consult to Dietitian/Nutrition [CONS] Routine Physician Instructions: Reason For Exam: Reason for Consult: Diet education Primary care physician: VINNY SPARROW MD Hospitalization Reason for admission: IUP - , rupture of membranes Delivery: Procedure: primary low transverse Procedure details: See Operative report Incision: normal, dry, intact complications: none Discharge diagnosis: delivery baby: male (Nicu d/t prematurity) Condition at discharge: Good Disposition: DC-01 TO HOME OR SELFCARE Plan - Discharge Medications Prescriptions: HYDROcodone/APAP 5-325 [[place] 5/325] 1 - 2 each PO Q4HR PRN #30 tablet PRN Reason: Pain - Provider Discharge Summary Activity: routine, no sex for 6 weeks, no heavy lifting 4 weeks, no strenuous exercise Diet: routine Instructions: routine Additional instructions: [] Smoking cessation referral if applicable(refer to patient education folder for contact #) [] Refer to [facility] Booklet Call your doctor immediately for: * Fever > 100.5 * Heavy vaginal bleeding ( >1 pad per hour) * Severe persistent headache * Shortness of breath * Reddened, hot, painful area to leg or breast * Drainage or odor from incision. * Keep incision clean and dry at all times and follow doctor's instructions regarding bathing/showering - Follow up plan Follow up: VINNY SPARROW MD [Primary Care Provider] - 7 Days
[2019-04-18] MEDS: metFORMIN 500 MG TAB PO SCH ×2 (06:01→09:10)
[2019-04-18] MEDS: FERROUS SULFATE 325 MG TAB PO SCH (09:10)
[2019-04-18] MEDS: IBUPROFEN 800 MG TAB PO PRN ×2 (09:11→15:22)
[2019-04-18 16:47] VITALS: BP 99/62
== END 2019-04-18 17:32 | disposition home or self-care (01) | DRG 786 ==
LOC: TRG 00:44 → LD 01:31 → TRG 03-28 07:40 → LD 03-28 07:41 → APU 04-15 22:00 → OB 04-16 01:18
PROVIDERS: ADMIT Obstetrics & Gynecology; ATTEND Obstetrics & Gynecology
PROC: 10D00Z1 Extraction of Products of Conception, Low, Open Approach (ICD-10-PCS; principal; 2019-04-15)
DX: O42.913 Preterm premature rupture of membranes, unspecified as to length of time between rupture and onset of labor, third trimester (principal); O60.14X0 Preterm labor third trimester with preterm delivery third trimester, not applicable or unspecified; O32.1XX0 Maternal care for breech presentation, not applicable or unspecified; O24.429 Gestational diabetes mellitus in childbirth, unspecified control; O99.02 Anemia complicating childbirth; Z37.0 Single live birth; Z79.899 Other long term (current) drug therapy; Z3A.31 31 weeks gestation of pregnancy
CPT/HCPCS: 36415; 76805; 76815; 76817; 76819; 80053; 80307; 81001; 82550; 82947; 82962; 83036; 83735; 84484; 85014; 85018; 85025; 85027; 86592; 86689; 86706; 86762; 86850; 86900; 86901; 87086; 87116; 88307; 93005; 93010; G0378; J0290; J0595; J0690; J0702; J1364; J1885; J2210; J2270; J2370; J2405; J2590; J2765; J3010; J3475; J3490; J7040; J7120